=== PATIENT | male | born 1945 | race Caucasian/White ===

== ENCOUNTER → 2017-08-31 | Outpatient (CLI) | payer OTHER | END | disposition home or self-care (01) | LOC: US 10:48 | DX: N18.9 Chronic kidney disease, unspecified (principal); N26.1 Atrophy of kidney (terminal); N28.1 Cyst of kidney, acquired; N40.0 Benign prostatic hyperplasia without lower urinary tract symptoms; N32.89 Other specified disorders of bladder | CPT/HCPCS: 76770 ==

== ENCOUNTER → 2017-09-27 | Outpatient (CLI) | payer OTHER | END | disposition home or self-care (01) | LOC: ECHO 08:54 | DX: I49.5 Sick sinus syndrome (principal); I49.9 Cardiac arrhythmia, unspecified; R94.31 Abnormal electrocardiogram [ECG] [EKG] | CPT/HCPCS: 93306 ==

== ENCOUNTER → 2018-04-08 | Outpatient (CLI) | payer OTHER ==
[2016-07-21 19:54] VITALS: BP 145/67
[~2018-04-08] MED LIST: ATOR40TA59 PO; CYAN100072 PO; LISI-334 PO; OMEG100020 PO; PANT40TA5 PO; REGADENOSON 0.4 MG/5 ML DISP.SYRIN. IV ONE; VIT1CAPS12 PO; VIT1TABL71 PO
--- NOTE | 2018-04-08 16:02 | RAD ---
MR#: [id number] Date of Study: 04/08/2018 Ordering Physician: LINA FRITZ, Referring Physician: CHRISTINA HICKMAN Tech: Tracey Walton, RT (R) (N) APPROVED REPORT Test Type: Pharmacological Stress Nurse/Tech: Cait Hobson RN Test Indications: PreOp Clearance Cardiac History: Hypertension,PPM,former smoker Medications: See Electronic Medical Record Medical History: See Electronic Medical Record Resting ECG: Paced Rhythm Resting Heart Rate: 62 bpm Resting Blood Pressure: 174/68mmHg Pretest Chest Pain: No chest pain Nurse/Tech Notes S1,S2 and lungs are slightly diminished in the bases. Consent: The procedure was explained to the patient in lay terms. Informed consent was witnessed. Iván eout was entered into [employer]. History and Stress Test performed by EMILY Richards Pharm. Details Pharmacologic stress testing was performed using 0.4mg per 5ml of regadenoson given intravenously ove r 7-10 seconds. Stress Symptoms No chest pain or symptoms. POST EXERCISE Reason for Termination: Infusion complete Target HR: No Max HR: 99 bpm Max Blood Pressure: 162/58mmHg Blood Pressure response to exercise: Normal blood pressure response during stress. Heart Rate response to exercise: WNL Chest Pain: No. Arrhythmia: Yes. PVC's. ST Change: No. INTERPRETATION Stress EKG Conclusion: Baseline EKG showed demand atrial paced rhythm. No ischemic changes at peak s tress. No arrhythmias. Imaging Protocol IMAGE PROTOCOL: Rest Tc-99m/stress Tc-99m 1 day Rest: Stress: Viability: Radiopharm.Tc99m WxypxrgikCr32j Sestamibi [id number] 35mCi Duration 13min. 13min. Img Date 04/08/2018 04/08/2018 Inj-Img Sudj98xuh. 60min. Rest Admin Site:IV - Right AntecubitalAdministrator:EMILY Richards Stress Admin Site: IV - Right AntecubitalAdministrator: KARLA Romano, ARRT (R)(N) STRESS DATA End Diast. Vol.91.0mlLVEDV index BSA57.0ml End Syst. Vol.34.0mlLVESV index BSA21.0ml Myocardial Zvkg594.0gEject. Pocmhkxc99.0% Stress Scores Regional WT1.00Summed WT2.00 Regional WM0.00Summed WM1.00 Study quality was good. Left Ventricular size was Normal at Rest and Stress. Lung uptake was Normal. Left Ventricular ejection fraction is 63%. The rest and stress images show normal perfusion, normal contraction and thickening. LV Perf. Quant 17 Seg. SSS2.00 17 Seg. SRS6.00 17 Seg. SDS0.00 Stress Defect Extent (% LAD)1.30Rest Defect Extent (% LAD)16.90Rev. Defect Extent (% LAD)0.00 Stress Defect Extent (% LCX) 0.00Rest Defect Extent (% LCX)0.00Rev. Defect Extent (% LCX)0.00 Stress Defect Extent (% RCA)0.00Rest Defect Extent (% RCA)16.70Rev. Defect Extent (% RCA)0.00 Stress Defect Extent (% JONNY)0.40Rest Defect Extent (% JONNY)13.30Rev. Defect Extent (% JONNY)0.00 Conclusion 1. Regadenoson cardioisotope stress test did not show any evidence of ischemia or infarct. 2. Normal left ventricular systolic function with ejection fraction calculated at 63%. 3. Low risk for cardiac events. Signed by : Lina Fritz, Electronically Approved : 04/08/2018 16:01:57
== END | disposition home or self-care (01) ==
LOC: NM 07:56
PROVIDERS: ATTEND Internal Medicine Cardiovascular Disease
DX: Z01.818 Encounter for other preprocedural examination (principal); I12.9 Hypertensive chronic kidney disease with stage 1 through stage 4 chronic kidney disease, or unspecified chronic kidney disease; N18.3 Chronic kidney disease, stage 3 (moderate); E78.5 Hyperlipidemia, unspecified; E78.00 Pure hypercholesterolemia, unspecified; Z87.891 Personal history of nicotine dependence
CPT/HCPCS: 78452; 93017; 96374; 96375; 96376; A9500; J2785

== ENCOUNTER 2018-12-27 09:23 | Inpatient (IN) | payer OTHER ==
[~2018-12-27] VITALS: Ht 160 cm; Wt 57.4 kg
[~2018-12-27 09:23] MED LIST changes: +CYAN500T2 PO; +HYDR-3164 PO; +LISI-130 PO; -REGADENOSON 0.4 MG/5 ML DISP.SYRIN. IV ONE
[2018-12-27 09:59] LABS: BASO % 1 % (0-3); EOS # 0.4 x10^3/uL (0.0-0.7); EOS % 7 % (0-3); HEMATOCRIT 30.1 % (39.0-53.0); LYMPH # 1.4 x10^3/uL (1.0-4.8); LYMPH % 23 % (24-48); MEAN CORPUSCULAR HEMOGLOBIN 33 pg (25-35); MEAN CORPUSCULAR HGB CONC 33 g/dL (31-37); MEAN CORPUSCULAR VOLUME 99 fL (79-100); MONO # 0.7 x10^3/uL (0.0-1.1); MONO % 11 % (0-9); NEUT # 3.7 x10^3uL (1.8-7.7); NEUT % 60 % (31-73); PLATELET COUNT 215 x10^3/uL (140-400); RED BLOOD COUNT 3.04 x10^6/uL (4.30-5.70); RED CELL DISTRIBUTION WIDTH 13.3 % (11.5-14.5); WHITE BLOOD COUNT 6.1 x10^3/uL (4.0-11.0)
[2018-12-27] MEDS ORDERED: ASPIRIN CHEWABLE 81 MG TABLET. PO ONE (10:00)
[2018-12-27 10:06] LABS: PROTHROMBIN TIME PATIENT 13.1 SEC (11.7-14.0)
[2018-12-27 10:10] LABS: CALCIUM 8.7 mg/dL (8.5-10.1); CREATININE 3.3 mg/dL (0.7-1.3); GFR 18.4; POTASSIUM 4.3 mmol/L (3.5-5.1)
[2018-12-27 10:17] LABS: ALBUMIN 2.9 g/dL (3.4-5.0); MAGNESIUM 1.6 mg/dL (1.8-2.4); TOTAL BILIRUBIN 0.4 mg/dL (0.2-1.0); TOTAL PROTEIN 5.9 g/dL (6.4-8.2)
--- NOTE | 2018-12-27 10:17 | RAD ---
Portable chest, 12/27/2018: HISTORY: Chest pain Comparison is made to a study from 06/21/2016. A left-sided transvenous pacemaker remains in place with 2 leads extending into the right heart. The heart size and pulmonary vascularity are normal. There is pleural thickening over the apices compatible scarring. No acute infiltrate is seen. There is no evidence of pleural fluid. IMPRESSION: No acute cardiopulmonary abnormality is detected. Electronically signed by: Terry Simmons MD (12/27/2018 10:14 AM) [facility]
--- NOTE | 2018-12-27 10:25 | EKG ---
[facility] [address] [place] [address] Test Date: 2018-12-27 Test Time: 09:43:04 Pat Name: CAITLIN SAUL Department: Room: Gender: Despatching And Receiving Clerk: : 1945 Requested By: IVY MCGUIRE Order Number: [id number] Reading MD: Orlando Aguirre Measurements Intervals [place] Rate: 60 P: 61 [place]: 212 QRS: 38 QRSD: 104 T: 36 QT: 414 QTc: 418 Interpretive Statements ATRIAL PACED RHYTHM Electronically Signed On 01-17-2019 12:27:41 CDT by Orlando Aguirre
[2018-12-27] MEDS ORDERED: MAGNESIUM OXIDE 400 MG TABLET PO ONE (11:45)
--- NOTE | 2018-12-27 12:00 | PHYS DOC ---
Past Medical History Past Medical History: Anemia, Arrhythmia, High Cholesterol, Hypertension, Renal Disease, Other Additional Past Medical Histor: WET MAC D Past Surgical History: Pacemaker, Other Additional Past Surgical Histo: HERNIA Alcohol Use: Occasionally Drug Use: None Adult General Chief Complaint Chief Complaint: CHEST PAIN HPI HPI Patient is a 73 year old male who presents with complaining of episodes of chest pain. Patient complaining of 3 episodes of exertional chest pain that started yesterday afternoon and last for about 1- 2 minutes as a chest tightness is substernal area with radiation to bilateral shoulder and associated with shortness of breath without nausea, dizziness, palpitation, focal neuro deficit. Patient rated the pain as a moderate pain and states he called his primary care physician today and was recommended to come to emergency room for evaluation. Patient has history of hypertension and dyslipidemia without history of coronary artery disease. He was chest pain-free today. Review of Systems Review of Systems Constitutional: Denies fever or chills [] Eyes: Denies change in visual acuity, redness, or eye pain [] HENT: Denies nasal congestion or sore throat [] Respiratory: Denies cough, reports shortness of breath [] Cardiovascular: No additional information not addressed in HPI [] GI: Denies abdominal pain, nausea, vomiting, bloody stools or diarrhea [] : Denies dysuria or hematuria [] Musculoskeletal: Denies back pain or joint pain [] Integument: Denies rash or skin lesions [] Neurologic: Denies headache, focal weakness or sensory changes [] Endocrine: Denies polyuria or polydipsia [] All other systems were reviewed and found to be within normal limits, except as documented in this note. Current Medications Current Medications Current Medications Medications (Trade) Dose Ordered Sig/Lm Start Time Stop Time Status Last Admin Dose Admin Aspirin (Children'S Aspirin) 324 mg 1X ONCE 12/27/18 10:00 12/27/18 10:01 DC 12/27/18 10:15 324 MG Magnesium Oxide (Magnesium Oxide) 400 mg 1X ONCE 12/27/18 11:45 12/27/18 11:46 DC 12/27/18 11:55 400 MG Allergies Allergies Allergies Coded Allergies Type Severity Reaction Last Updated Verified Influenza Virus Vaccines Allergy Intermediate GUILLAIN BARRE SYMPTOMS 04/16/18 Yes diphenhydramine Adverse Reaction Mild CHANGE IN PERSONALITY 04/16/18 Yes Physical Exam Physical Exam Constitutional: Well developed, well nourished, no acute distress, non-toxic appearance. [] HENT: Normocephalic, atraumatic. Eyes: PERRLA, EOMI, conjunctiva normal, no discharge. [] Neck: Normal range of motion, no tenderness, supple, no stridor. [] Cardiovascular:Heart rate regular rhythm, no murmur [] Lungs & Thorax: Bilateral breath sounds clear to auscultation [] Abdomen: Bowel sounds normal, soft, no tenderness, no masses, no pulsatile masses. [] Skin: Warm, dry, no erythema, no rash. [] Back: No tenderness, no CVA tenderness. [] Extremities: No tenderness, no cyanosis, no clubbing, ROM intact, no edema. [] Neurologic: Alert and oriented X 3, normal motor function, normal sensory function, no focal deficits noted. [] Psychologic: Affect normal, judgement normal, mood normal. [] Current Patient Data Vital Signs Vital Signs Date Time Temp Pulse Resp B/P (MAP) Pulse Ox O2 Delivery O2 Flow Rate FiO2 12/27/18 11:30 60 153/69 (97) 99 Nasal Cannula 12/27/18 10:07 97.8 18 97.8 Lab Values Laboratory Tests Test 12/27/18 09:48 White Blood Count 6.1 x10^3/uL (4.0-11.0) Red Blood Count 3.04 x10^6/uL (4.30-5.70) L Hemoglobin 10.0 g/dL (13.0-17.5) L Hematocrit 30.1 % (39.0-53.0) L Mean Corpuscular Volume 99 fL (79-100) Mean Corpuscular Hemoglobin 33 pg (25-35) Mean Corpuscular Hemoglobin Concent 33 g/dL (31-37) Red Cell Distribution Width 13.3 % (11.5-14.5) Platelet Count 215 x10^3/uL (140-400) Neutrophils (%) (Auto) 60 % (31-73) Lymphocytes (%) (Auto) 23 % (24-48) L Monocytes (%) (Auto) 11 % (0-9) H Eosinophils (%) (Auto) 7 % (0-3) H Basophils (%) (Auto) 1 % (0-3) Neutrophils # (Auto) 3.7 x10^3uL (1.8-7.7) Lymphocytes # (Auto) 1.4 x10^3/uL (1.0-4.8) Monocytes # (Auto) 0.7 x10^3/uL (0.0-1.1) Eosinophils # (Auto) 0.4 x10^3/uL (0.0-0.7) Basophils # (Auto) 0.0 x10^3/uL (0.0-0.2) Prothrombin Time 13.1 SEC (11.7-14.0) Prothrombin Time INR 1.0 (0.8-1.1) Sodium Level 146 mmol/L (136-145) H Potassium Level 4.3 mmol/L (3.5-5.1) Chloride Level 112 mmol/L (98-107) H Carbon Dioxide Level 21 mmol/L (21-32) Anion Gap 13 (6-14) Blood Urea Nitrogen 54 mg/dL (8-26) H Creatinine 3.3 mg/dL (0.7-1.3) H Estimated GFR (Cockcroft-Gault) 18.4 BUN/Creatinine Ratio 16 (6-20) Glucose Level 109 mg/dL (70-99) H Calcium Level 8.7 mg/dL (8.5-10.1) Magnesium Level 1.6 mg/dL (1.8-2.4) L Total Bilirubin 0.4 mg/dL (0.2-1.0) Aspartate Amino Transferase (AST) 26 U/L (15-37) Alanine Aminotransferase (ALT) 24 U/L (16-63) Alkaline Phosphatase 80 U/L (46-116) Creatine Kinase 131 U/L (39-308) Creatine Kinase MB (Mass) 1.6 ng/mL (0.0-3.6) Creatine Kinase MB Relative Index 1.2 % (0-4) Troponin I Quantitative < 0.017 ng/mL (0.000-0.055) LL-Kmw-G-Type Natriuretic Peptide 902 pg/mL (0-124) H Total Protein 5.9 g/dL (6.4-8.2) L Albumin 2.9 g/dL (3.4-5.0) L Albumin/Globulin Ratio 1.0 (1.0-1.7) Triglycerides Level 124 mg/dL (0-150) Cholesterol Level 152 mg/dL (0-200) LDL Cholesterol, Calculated 94 mg/dL (0-100) VLDL Cholesterol, Calculated 25 mg/dL (0-40) Non-HDL Cholesterol Calculated 119 mg/dL (0-129) HDL Cholesterol 33 mg/dL (40-60) L Cholesterol/HDL Ratio 4.6 Lipase 232 U/L (73-393) Thyroid Stimulating Hormone (TSH) 1.211 uIU/mL (0.358-3.74) Laboratory Tests 12/27/18 09:48 Laboratory Tests 12/27/18 09:48 EKG EKG EKG interpreted by me. EKG at 0943 showed normal sinus rhythm at rate of 60, poor R-wave progress in anteroseptal disease, no acute ST and T-wave abnormalities. Radiology/Procedures Radiology/Procedures [facility] [address] [place] [address] IMAGING REPORT Signed PATIENT: CAITLIN SAUL ACCOUNT: [id number] : 1945 LOCATION: ER AGE: 73 SEX: M EXAM STATUS: REG ER ORD. PHYSICIAN: IVY MCGUIRE MD REASON: chest pain PROCEDURE: PORTABLE CHEST 1V Portable chest, 12/27/2018: HISTORY: Chest pain Comparison is made to a study from 06/21/2016. A left-sided transvenous pacemaker remains in place with 2 leads extending into the right heart. The heart size and pulmonary vascularity are normal. There is pleural thickening over the apices compatible scarring. No acute infiltrate is seen. There is no evidence of pleural fluid. IMPRESSION: No acute cardiopulmonary abnormality is detected. Electronically signed by: Terry Simmons MD (12/27/2018 10:14 AM) [facility] DICTATED and SIGNED BY: TERRY SIMMONS MD DATE: 12/27/18 1014 Course & Med Decision Making Course & Med Decision Making Pertinent Labs and Imaging studies reviewed. (See chart for details) Evaluation of patient in ER showed 73-year-old female patient with complaining of episodes of exertional chest pain without having chest pain at arrival to ER. Patient had unremarkable labs and EKG but because of cardiac risk factors and exertional chest pain plan to admit for more evaluation.patient has chronic renal failure and elevation of sodium and chloride and ringer at rate of 75 ML/H was ordered. Patient requiring admission for further evaluation and treatment. Discussed with Dr. Mendiola who is in agreement with admission. Discussed find ings and plan with patient and family, who acknowledge understanding and agreement. Dragon Disclaimer Dragon Disclaimer This electronic medical record was generated, in whole or in part, using a voice recognition dictation system. Departure Departure Impression: Primary Impression: Acute chest pain Additional Impressions: Hypernatremia Chronic renal insufficiency Hyperchloremia Disposition: ADMITTED INPATIENT (at 1158) Admitting Physician: Aaron Sam (accepted admission at 1156) Condition: IMPROVED Referrals: VIVIANE CURTIS MD (PCP) Problem Qualifiers Additional Impressions: Chronic renal insufficiency Chronic kidney disease stage: unspecified stage Qualified Codes: N18.9 - Chronic kidney disease, unspecified IVY MCGUIRE MD December 27, 2018 12:00
--- NOTE | 2018-12-27 12:17 | PDOC1 ---
History and Physical Date of Admission Date of Admission DATE: 12/27/18 TIME: 12:17 Identification/Chief Complaint Chief Complaint SEEN IN ER WITH chest tightness with shoulder discomfort and mildly diaphoretic but no nausea. No SOA. No palpitations and actually his fitbit shows HR in the 60s. This lasted about 1-2 minutes. He sat down and got better. He started bowling again for round 2 YESTERDAY and started having symptoms again 10 minutes later. STATES he feels like he felt before he needed a pacemaker There is no GERMAIN, no palpitations.but reports poor exercise tolerance Past Medical History Past Medical History Past Medical History Past Medical History Past Medical History: Anemia, Arrhythmia, High Cholesterol, Hypertension, Renal Disease, Other Additional Past Medical Histor: WET MAC D Past Surgical History: Pacemaker, Other Additional Past Surgical Histo: HERNIA Alcohol Use: Occasionally Drug Use: None FAMILY HX htn Current Problem List Problem List Problems Medical Problems: (1) Acute chest pain Status: Acute (2) Hypernatremia Status: Acute Current Medications Current Medications Current Medications Aspirin (Children'S Aspirin) 324 mg 1X ONCE PO Last administered on 12/27/18at 10:15; Start 12/27/18 at 10:00; Stop 12/27/18 at 10:01; Status DC Magnesium Oxide (Magnesium Oxide) 400 mg 1X ONCE PO Last administered on 12/27/18at 11:55; Start 12/27/18 at 11:45; Stop 12/27/18 at 11:46; Status DC Ringer's Solution 1,000 ml @ 75 mls/hr 1X ONCE IV ; Start 12/27/18 at 12:30; Stop 12/28/18 at 01:49 Active Scripts Active Reported [place] 5-325 Tablet (Acetaminophen/Hydrocodone Bitart) 1 Each Tablet 1-2 Tab PO Q4-6HRS LAST DOSE GIVEN: Vitamin B-12 (Cyanocobalamin (Vitamin B-12)) 500 Mcg Tablet 500 Mcg PO Lisinopril 40 Mg Tablet 1.5 Tab PO DAILY Fish Oil Conc 1,000 mg Softgel (Brilliant-3/Dha/Epa/Fish Oil) 1,000 Mg Capsule 1,000 Mg PO DAILY Atorvastatin Calcium 40 Mg Tablet 40 Mg PO QHS Pantoprazole Sodium 40 Mg Tablet.dr 40 Mg PO DAILY Allergies Allergies: Coded Allergies: Influenza Virus Vaccines (Verified Allergy, Intermediate, GUILLAIN BARRE SYMPTOMS, 04/16/18) diphenhydramine (Verified Adverse Reaction, Mild, CHANGE IN PERSONALITY, 04/16/18) CHANGE IN PERSONALITY ROS Review of System Review of Systems Review of Systems Constitutional: Denies fever or chills [] Eyes: Denies change in visual acuity, redness, or eye pain [] HENT: Denies nasal congestion or sore throat [] Respiratory: Denies cough or shortness of breath [] Cardiovascular: No additional information not addressed in HPI [] GI: Denies abdominal pain, nausea, vomiting, bloody stools or diarrhea [] : Denies dysuria or hematuria [] Musculoskeletal: Denies back pain or joint pain [] Integument: Denies rash or skin lesions [] Neurologic: Denies headache, focal weakness or sensory changes [] Endocrine: Denies polyuria or polydipsia [] 14 pt systems were reviewed and found to be within normal limits, except as documented Physical Exam Physical Exam Physical Exam Physical Exam Constitutional: Well developed, well nourished, no acute distress, non-toxic appearance. [] HENT: Normocephalic, atraumatic, bilateral external ears normal, oropharynx moist, no oral exudates, nose normal. [] Eyes: PERRLA, EOMI, conjunctiva normal, no discharge. [] Neck: Normal range of motion, no tenderness, supple, no stridor. [] Cardiovascular:Heart rate regular rhythm, no murmur [] Lungs & Thorax: Bilateral breath sounds clear to auscultation [] Abdomen: Bowel sounds normal, soft, no tenderness, no masses, no pulsatile masses. [] Skin: Warm, dry, no erythema, no rash. [] Back: No tenderness, no CVA tenderness. [] Extremities: No tenderness, no cyanosis, no clubbing, ROM intact, no edema. [] Neurologic: Alert and oriented X 3, normal motor function, normal sensory function, no focal deficits noted. [] Psychologic: Affect normal, judgement normal, mood normal. [] General: Oriented X3, Cooperative HEENT: Atraumatic Lungs: Clear to auscultation Abdomen: Normal bowel sounds, Soft Rectal Exam: not examined Extremities: No cyanosis, No edema Skin: No significant lesion Neuro: Cranial nerves 3-12 NL Psych/Mental Status: Mental status NL Vitals Vitals Vital Signs Date Time Temp Pulse Resp B/P (MAP) Pulse Ox O2 Delivery O2 Flow Rate FiO2 12/27/18 10:07 97.8 60 18 173/80 (111) 100 Room Air 97.8 Labs Labs Laboratory Tests Test 12/27/18 09:48 White Blood Count 6.1 x10^3/uL (4.0-11.0) Red Blood Count 3.04 x10^6/uL (4.30-5.70) Hemoglobin 10.0 g/dL (13.0-17.5) Hematocrit 30.1 % (39.0-53.0) Mean Corpuscular Volume 99 fL (79-100) Mean Corpuscular Hemoglobin 33 pg (25-35) Mean Corpuscular Hemoglobin Concent 33 g/dL (31-37) Red Cell Distribution Width 13.3 % (11.5-14.5) Platelet Count 215 x10^3/uL (140-400) Neutrophils (%) (Auto) 60 % (31-73) Lymphocytes (%) (Auto) 23 % (24-48) Monocytes (%) (Auto) 11 % (0-9) Eosinophils (%) (Auto) 7 % (0-3) Basophils (%) (Auto) 1 % (0-3) Neutrophils # (Auto) 3.7 x10^3uL (1.8-7.7) Lymphocytes # (Auto) 1.4 x10^3/uL (1.0-4.8) Monocytes # (Auto) 0.7 x10^3/uL (0.0-1.1) Eosinophils # (Auto) 0.4 x10^3/uL (0.0-0.7) Basophils # (Auto) 0.0 x10^3/uL (0.0-0.2) Prothrombin Time 13.1 SEC (11.7-14.0) Prothromb Time International Ratio 1.0 (0.8-1.1) Sodium Level 146 mmol/L (136-145) Potassium Level 4.3 mmol/L (3.5-5.1) Chloride Level 112 mmol/L (98-107) Carbon Dioxide Level 21 mmol/L (21-32) Anion Gap 13 (6-14) Blood Urea Nitrogen 54 mg/dL (8-26) Creatinine 3.3 mg/dL (0.7-1.3) Estimated GFR (Cockcroft-Gault) 18.4 BUN/Creatinine Ratio 16 (6-20) Glucose Level 109 mg/dL (70-99) Calcium Level 8.7 mg/dL (8.5-10.1) Magnesium Level 1.6 mg/dL (1.8-2.4) Total Bilirubin 0.4 mg/dL (0.2-1.0) Aspartate Amino Transf (AST/SGOT) 26 U/L (15-37) Alanine Aminotransferase (ALT/SGPT) 24 U/L (16-63) Alkaline Phosphatase 80 U/L (46-116) Creatine Kinase 131 U/L (39-308) Creatine Kinase MB (Mass) 1.6 ng/mL (0.0-3.6) Creatine Kinase MB Relative Index 1.2 % (0-4) Troponin I Quantitative < 0.017 ng/mL (0.000-0.055) ZB-Wpk-J-Type Natriuretic Peptide 902 pg/mL (0-124) Total Protein 5.9 g/dL (6.4-8.2) Albumin 2.9 g/dL (3.4-5.0) Albumin/Globulin Ratio 1.0 (1.0-1.7) Lipase 232 U/L (73-393) Laboratory Tests Test 12/27/18 09:48 White Blood Count 6.1 x10^3/uL (4.0-11.0) Red Blood Count 3.04 x10^6/uL (4.30-5.70) Hemoglobin 10.0 g/dL (13.0-17.5) Hematocrit 30.1 % (39.0-53.0) Mean Corpuscular Volume 99 fL (79-100) Mean Corpuscular Hemoglobin 33 pg (25-35) Mean Corpuscular Hemoglobin Concent 33 g/dL (31-37) Red Cell Distribution Width 13.3 % (11.5-14.5) Platelet Count 215 x10^3/uL (140-400) Neutrophils (%) (Auto) 60 % (31-73) Lymphocytes (%) (Auto) 23 % (24-48) Monocytes (%) (Auto) 11 % (0-9) Eosinophils (%) (Auto) 7 % (0-3) Basophils (%) (Auto) 1 % (0-3) Neutrophils # (Auto) 3.7 x10^3uL (1.8-7.7) Lymphocytes # (Auto) 1.4 x10^3/uL (1.0-4.8) Monocytes # (Auto) 0.7 x10^3/uL (0.0-1.1) Eosinophils # (Auto) 0.4 x10^3/uL (0.0-0.7) Basophils # (Auto) 0.0 x10^3/uL (0.0-0.2) Prothrombin Time 13.1 SEC (11.7-14.0) Prothromb Time International Ratio 1.0 (0.8-1.1) Sodium Level 146 mmol/L (136-145) Potassium Level 4.3 mmol/L (3.5-5.1) Chloride Level 112 mmol/L (98-107) Carbon Dioxide Level 21 mmol/L (21-32) Anion Gap 13 (6-14) Blood Urea Nitrogen 54 mg/dL (8-26) Creatinine 3.3 mg/dL (0.7-1.3) Estimated GFR (Cockcroft-Gault) 18.4 BUN/Creatinine Ratio 16 (6-20) Glucose Level 109 mg/dL (70-99) Calcium Level 8.7 mg/dL (8.5-10.1) Magnesium Level 1.6 mg/dL (1.8-2.4) Total Bilirubin 0.4 mg/dL (0.2-1.0) Aspartate Amino Transf (AST/SGOT) 26 U/L (15-37) Alanine Aminotransferase (ALT/SGPT) 24 U/L (16-63) Alkaline Phosphatase 80 U/L (46-116) Creatine Kinase 131 U/L (39-308) Creatine Kinase MB (Mass) 1.6 ng/mL (0.0-3.6) Creatine Kinase MB Relative Index 1.2 % (0-4) Troponin I Quantitative < 0.017 ng/mL (0.000-0.055) KW-Wan-P-Type Natriuretic Peptide 902 pg/mL (0-124) Total Protein 5.9 g/dL (6.4-8.2) Albumin 2.9 g/dL (3.4-5.0) Albumin/Globulin Ratio 1.0 (1.0-1.7) Lipase 232 U/L (73-393) VTE Prophylaxis Ordered VTE Prophylaxis Devices: Yes VTE Pharmacological Prophylaxi: Yes Assessment/Plan Assessment/Plan impression 1. chest discomfort 2. exercise intolerance, may be angina equivalence 3. hyperlipidemia 4. hypertension 5, ckd 6. renal failure plan admit serial troponin i cvc bed home meds TTE, TSH, carotid dopplers. hold home lisinopril, IV hydrate x1 L Interrogate pacemaker Orthostatic bp ASA, Mg replaced. cardiology consult dvt prophylaxis nephrology consult 59 min pt exam, chart review, > 50% of time spent with exam, chart review, pt care coordination Past Medical History Past Medical History: Anemia, Arrhythmia, High Cholesterol, Hypertension, Renal Disease, Other Additional Past Medical Histor: WET MAC D Past Surgical History: Pacemaker, Other Additional Past Surgical Histo: HERNIA Alcohol Use: Occasionally Drug Use: None GIOVANA LECHUGA MD December 27, 2018 12:17
[2018-12-27] MEDS ORDERED: IV RINGERS,LACTATED 1000ML 1,000 ML IV ONE (12:30)
--- NOTE | 2018-12-27 12:45 | PDOC2 ---
TAMIA BILL CO FOUNDER 12/27/18 1245: CARDIAC CONSULT DATE OF CONSULT Date of Consult DATE: 12/27/18 TIME: 12:34 REASON FOR CONSULT Reason for Consult: Chest pain REFERRING PHYSICIAN Referring Physician: jese SOURCE Source: Chart review, Patient HISTORY OF PRESENT ILLNESS HISTORY OF PRESENT ILLNESS This is a pleasant 73 yo male admitted for complains of chest pain and dizziness. Reports that he does gardening and was noticed by his that his endurance has decreased which is quite opposite than the endurance he displayed while he was bowling for an hour without any problem when suddenly he felt flushed, had midchest tightness with shoulder discomfort and mildly diaphoretic but no nausea. No SOA. No palpitations and actually his fitbit shows HR in the 60s. This lasted about 1-2 minutes. He sat down and got better. He started bowling again for round 2 and started having symptoms again 10 minutes later. This did not recur again until he went home but he tried to induced he said. He stood up right away and climb the stairs. There is no GERMAIN, no palpitations. Verbalized adequate hydration and medication compliance. He has renal insufficiency stage 4 but no prior hx of CAD, VTE. No stroke symptoms. PAST MEDICAL HISTORY Cardiovascular: HTN, Hyperlipidemia Heme/Onc: Anemia NOS, Other (DVT to arm?) Musculoskeletal: Osteoarthritis Renal/: Chronic renal insuff (4), Benign prostatic enlarg., Other (alports syndrome) PAST SURGICAL HISTORY Past Surgical History: Pacemaker, Cataract Removal, Hernia Repair (right inguinal), Tonsillectomy, Other (rectal polypectomy) FAMILY HISTORY Family History: Heart Disease SOCIAL HISTORY Smoke: Quit ALCOHOL: occassional Drugs: None Lives: with Family CURRENT MEDICATIONS CURRENT MEDICATIONS Current Medications Medications (Trade) Dose Ordered Sig/Lm Route PRN Reason Start Time Stop Time Status Last Admin Dose Admin Aspirin (Children'S Aspirin) 324 mg 1X ONCE PO 12/27/18 10:00 12/27/18 10:01 DC 12/27/18 10:15 Magnesium Oxide (Magnesium Oxide) 400 mg 1X ONCE PO 12/27/18 11:45 12/27/18 11:46 DC 12/27/18 11:55 ALLERGIES ALLERGIES: Coded Allergies: Influenza Virus Vaccines (Verified Allergy, Intermediate, GUILLAIN BARRE SYMPTOMS, 04/16/18) diphenhydramine (Verified Adverse Reaction, Mild, CHANGE IN PERSONALITY, 04/16/18) CHANGE IN PERSONALITY ROS Review of System 14 point ROS evaluated with pertinent positives noted per HPI PHYSICAL EXAM General: Alert, Oriented X3, Cooperative, No acute distress HEENT: Atraumatic, Mucous membr. moist/pink Lungs: Clear to auscultation, Normal air movement Heart: Regular rate (atrial paced), Normal S1, Normal S2, No murmurs Abdomen: Soft, No tenderness Extremities: No cyanosis, Other (trace LE ) Skin: No breakdown, No significant lesion Neuro: Normal speech, Sensation intact Psych/Mental Status: Mental status NL, Mood NL MUSCULOSKELETAL: Osteoarthritic changes both hands VITALS VITALS Vital Signs Date Time Temp Pulse Resp B/P (MAP) Pulse Ox O2 Delivery O2 Flow Rate FiO2 12/27/18 10:07 97.8 60 18 173/80 (111) 100 Room Air 97.8 LABS Lab: Laboratory Tests Test 12/27/18 09:48 White Blood Count 6.1 x10^3/uL (4.0-11.0) Red Blood Count 3.04 x10^6/uL (4.30-5.70) Hemoglobin 10.0 g/dL (13.0-17.5) Hematocrit 30.1 % (39.0-53.0) Mean Corpuscular Volume 99 fL (79-100) Mean Corpuscular Hemoglobin 33 pg (25-35) Mean Corpuscular Hemoglobin Concent 33 g/dL (31-37) Red Cell Distribution Width 13.3 % (11.5-14.5) Platelet Count 215 x10^3/uL (140-400) Neutrophils (%) (Auto) 60 % (31-73) Lymphocytes (%) (Auto) 23 % (24-48) Monocytes (%) (Auto) 11 % (0-9) Eosinophils (%) (Auto) 7 % (0-3) Basophils (%) (Auto) 1 % (0-3) Neutrophils # (Auto) 3.7 x10^3uL (1.8-7.7) Lymphocytes # (Auto) 1.4 x10^3/uL (1.0-4.8) Monocytes # (Auto) 0.7 x10^3/uL (0.0-1.1) Eosinophils # (Auto) 0.4 x10^3/uL (0.0-0.7) Basophils # (Auto) 0.0 x10^3/uL (0.0-0.2) Prothrombin Time 13.1 SEC (11.7-14.0) Prothromb Time International Ratio 1.0 (0.8-1.1) Sodium Level 146 mmol/L (136-145) Potassium Level 4.3 mmol/L (3.5-5.1) Chloride Level 112 mmol/L (98-107) Carbon Dioxide Level 21 mmol/L (21-32) Anion Gap 13 (6-14) Blood Urea Nitrogen 54 mg/dL (8-26) Creatinine 3.3 mg/dL (0.7-1.3) Estimated GFR (Cockcroft-Gault) 18.4 BUN/Creatinine Ratio 16 (6-20) Glucose Level 109 mg/dL (70-99) Calcium Level 8.7 mg/dL (8.5-10.1) Magnesium Level 1.6 mg/dL (1.8-2.4) Total Bilirubin 0.4 mg/dL (0.2-1.0) Aspartate Amino Transf (AST/SGOT) 26 U/L (15-37) Alanine Aminotransferase (ALT/SGPT) 24 U/L (16-63) Alkaline Phosphatase 80 U/L (46-116) Creatine Kinase 131 U/L (39-308) Creatine Kinase MB (Mass) 1.6 ng/mL (0.0-3.6) Creatine Kinase MB Relative Index 1.2 % (0-4) Troponin I Quantitative < 0.017 ng/mL (0.000-0.055) CT-Aqc-N-Type Natriuretic Peptide 902 pg/mL (0-124) Total Protein 5.9 g/dL (6.4-8.2) Albumin 2.9 g/dL (3.4-5.0) Albumin/Globulin Ratio 1.0 (1.0-1.7) Lipase 232 U/L (73-393) ECHOCARDIOGRAM ECHOCARDIOGRAM <Conclusion> The left ventricular systolic function is normal. The Ejection Fraction is 55-60%. There is normal LV segmental wall motion. Trace mitral regurgitation. Trace tricuspid regurgitation. There is no evidence of significant pericardial effusion. DATE: 09/27/17 1129 STRESS TEST STRESS TEST Conclusion 1. Regadenoson cardioisotope stress test did not show any evidence of ischemia or infarct. 2. Normal left ventricular systolic function with ejection fraction calculated at 63%. 3. Low risk for cardiac events. DATE: 04/08/18 1601 ASSESSMENT/PLAN ASSESSMENT/PLAN 1. CP: mixed features initial trop nml, EKG atrial paced otherwise no significant changes. Possibly related to arrhythmia 2. Presyncope: arrhythmia vs vasovagal 3. MALLORY on CKD4 with hx of Alports syndrome 4. PPM in situ with hx of SSS: [place] 4. HTN; controlled 5. anemia of chronic disease: Hgb 10 Recommendations Limited TTE, TSH, lipids, trend troponin. carotid doppler. hold home lisinopril, IV hydrate x1 L Interrogate device Orthostatic readings. ASA, Mg replaced. will consider for outpt stress test if findings are inconclusive. LINA FRITZ MD 12/27/18 5955: CARDIAC CONSULT ASSESSMENT/PLAN ASSESSMENT/PLAN Patient seen and examined. Agree with ADVISOR CONSULTANT's assessment and plan. Chest pain with atypical features Myocardial infarction has been ruled out Limited 2-D echo showed normal LV function without any wall motion abnormalities Pacemaker interrogation showed normal function We will consider ischemic evaluation as an outpatient Thank you for your consultation TAMIA BILL APRN December 27, 2018 12:45 LINA FRITZ MD December 27, 2018 17:59
[2018-12-27 12:50] VITALS: BP 168/58
[2018-12-27 13:15] LABS: CHOLESTEROL/HDL RATIO 4.6
[2018-12-27] MEDS ORDERED: CARV12.511 PO (14:48)
[2018-12-27] MEDS ORDERED: CALC-77 PO (14:48)
[2018-12-27] MEDS ORDERED: FERR325T14 PO (14:48)
[2018-12-27] MEDS ORDERED: CYAN-9 PO (14:50)
[2018-12-27] MEDS ORDERED: PANT20TA2 PO (14:52)
[2018-12-27 15:00] VITALS: BP 166/62
[2018-12-27] MEDS ORDERED: IV 1/2 NORMAL SALINE 1,000 ML IV ONE (16:00)
--- NOTE | 2018-12-27 16:17 | RAD ---
CT HEAD INDICATION: Dizziness, headache COMPARISON: None Available. Exposure: One or more of the following individualized dose reduction techniques were utilized for this examination: 1. Automated exposure control 2. Adjustment of the mA and/or kV according to patient size 3. Use of iterative reconstruction technique TECHNIQUE: 5 mm contiguous axial images were obtained from the skull base to the vertex in both bone and soft tissue algorithm. FINDINGS: Mild bilateral periventricular white matter hypodensities likely chronic small vessel ischemic disease. No evidence of acute intracranial hemorrhage. No extra-axial fluid collections. No mass effect or midline shift. Ventricular size is appropriate. Basal cisterns are patent. No fractures identified.Romero-white differentiation is preserved.Globes and orbits are within normal limits. Paranasal sinuses and mastoid air cells are clear. IMPRESSION: No acute intracranial findings. Electronically signed by: Timoteo Turcios MD (12/27/2018 4:14 PM) [place] [id number]
[2018-12-27 16:34] LABS: BILIRUBIN,URINE NEGATIVE (NEG); CLARITY,URINE CLEAR; COLOR,URINE YELLOW; NITRITE,URINE NEGATIVE (NEG); PH,URINE 5.5; PROTEIN,URINE >=300 mg/dL (NEG-TRACE); UROBILINOGEN,URINE 0.2 mg/dL (0.2 mg/dL)
[2018-12-27 16:40] LABS: BARBITURATES NEG (NEG); BENZODIAZEPINES NEG (NEG); CANNABINOIDS NEG (NEG); COCAINE NEG (NEG); METHADONE NEG (NEG); OPIATES NEG (NEG); PHENCYCLIDINE NEG (NEG)
[2018-12-27 16:41] LABS: BACTERIA,URINE 0 /HPF (0-FEW); RBC,URINE 0 /HPF (0-2); SQUAMOUS EPITHELIAL CELL,UR OCC /LPF; WBC,URINE OCC /HPF (0-4)
[2018-12-27 16:44] LABS: AMPHETAMINE/METHAMPHETAMINE NEG (NEG)
--- NOTE | 2018-12-27 17:34 | CARD ---
MR#: [id number] Date of Study: 12/27/2018 Ordering Physician: TAMIA BILL, Referring Physician: GIOVANA LECHUGA Tech: Grace Hanson [facility] APPROVED REPORT EXAM: LIMITED Two-dimensional and M-mode echocardiogram. Other Information Quality : AverageHR: 60bpm Rhythm : NSR INDICATION Chest Pain 2D DIMENSIONS RVDd3.0 (2.9-3.5cm)Left Atrium(2D)3.1 (1.6-4.0cm) IVSd0.9 (0.7-1.1cm)Aortic Root(2D)3.5 (2.0-3.7cm) LVDd4.0 (3.9-5.9cm)PWd0.9 (0.7-1.1cm) LVDs2.7 (2.5-4.0cm)FS (%) 34.5 % SV46.0 mlLVEF(%)60.0 (>50%) LEFT VENTRICLE The left ventricle is normal size. There is normal left ventricular wall thickness. The left ventricu lar systolic function is normal. The Ejection Fraction is 55-60%. There is normal LV segmental wall m otion. RIGHT VENTRICLE The right ventricle is normal size. There is normal right ventricular wall thickness. The right ventr icular systolic function is normal. Pacer lead noted in RV/RA. ATRIA The left atrium size is normal. The right atrium size is normal. The interatrial septum is intact wit h no evidence for an atrial septal defect or patent foramen ovale as noted on 2-D or Doppler imaging. GREAT VESSELS The aortic root is normal in size. The ascending aorta is normal in size. The IVC is normal in size a nd collapses >50% with inspiration. PERICARDIAL EFFUSION There is no evidence of significant pericardial effusion. Critical Notification Critical Value: No <Conclusion> Limited echo to assess LV function. The left ventricular systolic function is normal. The Ejection Fraction is 55-60%. There is normal LV segmental wall motion. Pacer lead noted in RV/RA. There is no evidence of significant pericardial effusion. Signed by : Orlando Aguirre, Electronically Approved : 12/27/2018 17:34:01
[2018-12-27] MEDS: CARVEDILOL 12.5 MG TABLET. PO SCH (17:47)
[2018-12-27] MEDS ORDERED: IV NORMAL SALINE 1000ML BAG 1,000 ML IV SCH (18:00)
--- NOTE | 2018-12-27 18:16 | PDOC2 ---
NEUROLOGY CONSULT Date of Admission Date of Admission DATE: 12/27/18 TIME: 18:01 Reason for Consult Reason for Consult: IMPRESSION: Recurrent near-syncopal spells. Chest pain. HTN HLD. Renal disease. Pacemaker placement. Hearing loss. RECOMMENDATIONS/PLAN: HCT w/o contrast . Lab: see orders. May consider CA US. Consulted Cardiology. OT/PT. Discussed with his at bedside. HISTORY OF THE PRESENT ILLNESS: This is a 73-y-old male patient who was admitted with complaints of chest pain and dizziness. He was gardening and was noticed by his that his endurance has decreased which is quite opposite than the endurance he displayed while he was bowling for an hour without any problem when suddenly he felt flushed, had midchest tightness with shoulder discomfort and mildly diaphoretic but no nausea. No SOA. This lasted about 1-2 minutes. He sat down and got better. He started bowling again for round 2 and started having symptoms again 10 minutes later. This did not recur again. He stated he had frequent near syncopal spells about 3 years ago and he had to find place to sit right away and his syncopal symptoms can be resolved. He eventually had pacemaker placement about 2 years and he had not had syncopal spells in the past 2 years until now. No seizures. No focalized sensory or motor deficits. PAST MEDICAL HISTORY Cardiovascular: HTN, Hyperlipidemia Heme/Onc: Anemia NOS, Other (DVT to arm?) Musculoskeletal: Osteoarthritis Renal/: Chronic renal insuff (4), Benign prostatic enlarg., Other (alports syndrome) PAST SURGICAL HISTORY Pacemaker, Cataract Removal, Hernia Repair (right inguinal), Tonsillectomy, Other (rectal polypectomy) FAMILY HISTORY Heart Disease ALLERGIES Coded Allergies: Influenza Virus Vaccines (Verified Allergy, Intermediate, GUILLAIN BARRE SYMPTOMS, 04/16/18) diphenhydramine (Verified Adverse Reaction, Mild, CHANGE IN PERSONALITY, 04/16/18) CHANGE IN PERSONALITY SOCIAL HISTORY Smoke: Quit ALCOHOL: occasionally Drugs: None Lives: with his . REVIEW OF SYSTEMS: Constitutional: No malnutrition, weight loss, cachexia. Head: No traumatic brain or head injury. Skin: No edema, or rash. Ear: No infection. Eyes: No vision loss or color blindness. Nose: No bleeding or purulent discharges. Hearing: Hearing loss. Neck: No injury. Cardiac: CAD, s/p Pacemaker Placement, HTN, HLD. Pulmonary: No COPD. GI: No GI ulcer, GI bleeding. Urinary/genital: UTI. Endocrinologic: Diabetes Mellitus. Skeletomuscular: No muscular atrophy. Neurological: see HP. Psychiatric: Denies drug use/abuse. Otherwise, not [id number] review of systems. PHYSICAL EXAMINATION: General appearance is in subacute distress. HEENT: Normocephalic and nontraumatic. Eyes, nose, ears, and throat are unremarkable. Neck is supple. No lymphadenopathy. No crepitus. Cardiovascular: S1, S2, regular rate and rhythm. Pulmonary: Clear to auscultation bilaterally. Abdomen: Bowel sounds are positive. Abdomen is soft, nontender, and nondistended. Extremities: No rash, lesions, or edema. No restriction of range of motion NEUROLOGICAL EXAMINATION: Alert Oriented to time, place and person. PERRL. EOMI. CN: no focal findings. Muscle tone: within normal. Muscle strength: 5- DTR: 2- Plantar reflex: Flexor response bilaterally Gait: not examined in bed. Sensory exam: no abnormal findings. No cerebellar signs elicited. F-T-N test accurate. Current Medications Current Medications Current Medications Aspirin (Children'S Aspirin) 324 mg 1X ONCE PO Last administered on 12/27/18at 10:15; Start 12/27/18 at 10:00; Stop 12/27/18 at 10:01; Status DC Magnesium Oxide (Magnesium Oxide) 400 mg 1X ONCE PO Last administered on 12/27/18at 11:55; Start 12/27/18 at 11:45; Stop 12/27/18 at 11:46; Status DC Ringer's Solution 1,000 ml @ 75 mls/hr 1X ONCE IV ; Start 12/27/18 at 12:30; Stop 12/28/18 at 01:49 Sodium Chloride 1,000 ml @ 75 mls/hr 1X ONCE IV Last administered on 12/27/18at 17:47; Start 12/27/18 at 16:00; Stop 12/28/18 at 05:19 Atorvastatin Calcium (Lipitor) 40 mg QHS PO ; Start 12/27/18 at 21:00 Carvedilol (Coreg) 12.5 mg BIDWMEALS PO Last administered on 12/27/18at 17:47; Start 12/27/18 at 17:00 Ferrous Sulfate (Feosol) 325 mg QODAY PO ; Start 12/29/18 at 09:00 Lisinopril (Prinivil) 60 mg DAILY PO ; Start 12/28/18 at 09:00; Stop 12/28/18 at 09:00; Status DC Calcium/Vitamin D (Oscal D 500mg/ 200uts) 1 tab DAILY PO ; Start 12/28/18 at 09:00 Fish Oil (Fish Oil) 1,000 mg DAILY PO ; Start 12/28/18 at 09:00 Pantoprazole Sodium (Protonix) 40 mg QHS PO ; Start 12/27/18 at 21:00 Cyanocobalamin (Vitamin B-12) 1,000 mcg DAILY PO ; Start 12/28/18 at 09:00 Sodium Chloride 1,000 ml @ 75 mls/hr [id number] IV ; Start 12/27/18 at 18:00 Active Scripts Active Reported Protonix (Pantoprazole Sodium) 20 Mg Tablet.dr 40 Mg PO HS Calcium + D3 Er Tablet (Calcium Carb & Cit/Vitamin D3) 1 Each Tablet.er 1 Each PO DAILY Carvedilol (Carvedilol) 12.5 Mg Tablet 12.5 Mg PO BIDWMEALS Ferrous Sulfate 325 Mg Tablet 325 Mg PO QODAY Vitamin B-12 (Cyanocobalamin (Vitamin B-12)) 500 Mcg Tablet 500 Mcg PO Lisinopril 40 Mg Tablet 1.5 Tab PO DAILY Fish Oil Conc 1,000 mg Softgel (Hestand-3/Dha/Epa/Fish Oil) 1,000 Mg Capsule 1,000 Mg PO DAILY Atorvastatin Calcium 40 Mg Tablet 40 Mg PO QHS Allergies Allergies: Allergies Coded Allergies Type Severity Reaction Last Updated Verified Influenza Virus Vaccines Allergy Intermediate GUILLAIN BARRE SYMPTOMS 04/16/18 Yes diphenhydramine Adverse Reaction Mild CHANGE IN PERSONALITY 04/16/18 Yes ROS Review of System The patient denies any associated fevers, chills, headache, ear pain, rhinorrhea, sore throat, stiff neck, productive cough, chest pain, shortness of breath, back or flank pain, abdominal pain, nausea, vomiting, diarrhea, constipation, dysuria, rash, numbness, weakness, tingling, incontinence, difficulty ambulating, or diaphoresis. Physical Exam Physical Exam General: Well developed, well nourished, no acute distress, well appearing HEENT: Pupils equally round and reactive to light, EOMI, no discharge, normal conjunctiva Neck: Supple, no nuchal rigidity, no JVD, trachea midline, no tenderness Cardiac: RRR, no murmurs, no gallops, no rubs Chest/Lungs: CTAB, no wheeze, no rhonchi, no crackles Abdomen: soft, non-distended, no guarding, no peritoneal signs, non-tender Back: No tenderness Extremities: no edema, pulses intact, non-tender,capillary refill <3 sec bilateral upper and lower extremities, Neuro: Alert and oriented x 4, no focal deficits, normal speech Vitals Vitals: Vital Signs Date Time Temp Pulse Resp B/P (MAP) Pulse Ox O2 Delivery O2 Flow Rate FiO2 12/27/18 17:47 65 12/27/18 11:30 153/69 (97) 99 Nasal Cannula 12/27/18 10:07 97.8 18 97.8 Labs Labs Laboratory Tests Test 12/27/18 09:48 12/27/18 13:55 12/27/18 16:20 White Blood Count 6.1 x10^3/uL (4.0-11.0) Red Blood Count 3.04 x10^6/uL (4.30-5.70) Hemoglobin 10.0 g/dL (13.0-17.5) Hematocrit 30.1 % (39.0-53.0) Mean Corpuscular Volume 99 fL (79-100) Mean Corpuscular Hemoglobin 33 pg (25-35) Mean Corpuscular Hemoglobin Concent 33 g/dL (31-37) Red Cell Distribution Width 13.3 % (11.5-14.5) Platelet Count 215 x10^3/uL (140-400) Neutrophils (%) (Auto) 60 % (31-73) Lymphocytes (%) (Auto) 23 % (24-48) Monocytes (%) (Auto) 11 % (0-9) Eosinophils (%) (Auto) 7 % (0-3) Basophils (%) (Auto) 1 % (0-3) Neutrophils # (Auto) 3.7 x10^3uL (1.8-7.7) Lymphocytes # (Auto) 1.4 x10^3/uL (1.0-4.8) Monocytes # (Auto) 0.7 x10^3/uL (0.0-1.1) Eosinophils # (Auto) 0.4 x10^3/uL (0.0-0.7) Basophils # (Auto) 0.0 x10^3/uL (0.0-0.2) Prothrombin Time 13.1 SEC (11.7-14.0) Prothromb Time International Ratio 1.0 (0.8-1.1) Sodium Level 146 mmol/L (136-145) Potassium Level 4.3 mmol/L (3.5-5.1) Chloride Level 112 mmol/L (98-107) Carbon Dioxide Level 21 mmol/L (21-32) Anion Gap 13 (6-14) Blood Urea Nitrogen 54 mg/dL (8-26) Creatinine 3.3 mg/dL (0.7-1.3) Estimated GFR (Cockcroft-Gault) 18.4 BUN/Creatinine Ratio 16 (6-20) Glucose Level 109 mg/dL (70-99) Calcium Level 8.7 mg/dL (8.5-10.1) Magnesium Level 1.6 mg/dL (1.8-2.4) Total Bilirubin 0.4 mg/dL (0.2-1.0) Aspartate Amino Transf (AST/SGOT) 26 U/L (15-37) Alanine Aminotransferase (ALT/SGPT) 24 U/L (16-63) Alkaline Phosphatase 80 U/L (46-116) Creatine Kinase 131 U/L (39-308) Creatine Kinase MB (Mass) 1.6 ng/mL (0.0-3.6) Creatine Kinase MB Relative Index 1.2 % (0-4) Troponin I Quantitative < 0.017 ng/mL (0.000-0.055) < 0.017 ng/mL (0.000-0.055) JP-Uod-S-Type Natriuretic Peptide 902 pg/mL (0-124) Total Protein 5.9 g/dL (6.4-8.2) Albumin 2.9 g/dL (3.4-5.0) Albumin/Globulin Ratio 1.0 (1.0-1.7) Triglycerides Level 124 mg/dL (0-150) Cholesterol Level 152 mg/dL (0-200) LDL Cholesterol, Calculated 94 mg/dL (0-100) VLDL Cholesterol, Calculated 25 mg/dL (0-40) Non-HDL Cholesterol Calculated 119 mg/dL (0-129) HDL Cholesterol 33 mg/dL (40-60) Cholesterol/HDL Ratio 4.6 Lipase 232 U/L (73-393) Thyroid Stimulating Hormone (TSH) 1.211 uIU/mL (0.358-3.74) Urine Color Yellow Urine Clarity Clear Urine pH 5.5 Urine Specific [place] 1.015 Urine Protein >=300 mg/dL (NEG-TRACE) Urine Glucose (UA) Negative mg/dL (NEG) Urine Ketones (Stick) Negative mg/dL (NEG) Urine Blood Negative (NEG) Urine Nitrite Negative (NEG) Urine Bilirubin Negative (NEG) Urine Urobilinogen Dipstick 0.2 mg/dL (0.2 mg/dL) Urine Leukocyte Esterase Negative (NEG) Urine RBC 0 /HPF (0-2) Urine WBC Occ /HPF (0-4) Urine Squamous Epithelial Cells Occ /LPF Urine Bacteria 0 /HPF (0-FEW) Urine Opiates Screen Neg (NEG) Urine Methadone Screen Neg (NEG) Urine Barbiturates Neg (NEG) Urine Phencyclidine Screen Neg (NEG) Urine Amphetamine/Methamphetamine Neg (NEG) Urine Benzodiazepines Screen Neg (NEG) Urine Cocaine Screen Neg (NEG) Urine Cannabinoids Screen Neg (NEG) Urine Ethyl Alcohol Neg (NEG) Laboratory Tests Test 12/27/18 09:48 12/27/18 13:55 12/27/18 16:20 White Blood Count 6.1 x10^3/uL (4.0-11.0) Red Blood Count 3.04 x10^6/uL (4.30-5.70) Hemoglobin 10.0 g/dL (13.0-17.5) Hematocrit 30.1 % (39.0-53.0) Mean Corpuscular Volume 99 fL (79-100) Mean Corpuscular Hemoglobin 33 pg (25-35) Mean Corpuscular Hemoglobin Concent 33 g/dL (31-37) Red Cell Distribution Width 13.3 % (11.5-14.5) Platelet Count 215 x10^3/uL (140-400) Neutrophils (%) (Auto) 60 % (31-73) Lymphocytes (%) (Auto) 23 % (24-48) Monocytes (%) (Auto) 11 % (0-9) Eosinophils (%) (Auto) 7 % (0-3) Basophils (%) (Auto) 1 % (0-3) Neutrophils # (Auto) 3.7 x10^3uL (1.8-7.7) Lymphocytes # (Auto) 1.4 x10^3/uL (1.0-4.8) Monocytes # (Auto) 0.7 x10^3/uL (0.0-1.1) Eosinophils # (Auto) 0.4 x10^3/uL (0.0-0.7) Basophils # (Auto) 0.0 x10^3/uL (0.0-0.2) Prothrombin Time 13.1 SEC (11.7-14.0) Prothromb Time International Ratio 1.0 (0.8-1.1) Sodium Level 146 mmol/L (136-145) Potassium Level 4.3 mmol/L (3.5-5.1) Chloride Level 112 mmol/L (98-107) Carbon Dioxide Level 21 mmol/L (21-32) Anion Gap 13 (6-14) Blood Urea Nitrogen 54 mg/dL (8-26) Creatinine 3.3 mg/dL (0.7-1.3) Estimated GFR (Cockcroft-Gault) 18.4 BUN/Creatinine Ratio 16 (6-20) Glucose Level 109 mg/dL (70-99) Calcium Level 8.7 mg/dL (8.5-10.1) Magnesium Level 1.6 mg/dL (1.8-2.4) Total Bilirubin 0.4 mg/dL (0.2-1.0) Aspartate Amino Transf (AST/SGOT) 26 U/L (15-37) Alanine Aminotransferase (ALT/SGPT) 24 U/L (16-63) Alkaline Phosphatase 80 U/L (46-116) Creatine Kinase 131 U/L (39-308) Creatine Kinase MB (Mass) 1.6 ng/mL (0.0-3.6) Creatine Kinase MB Relative Index 1.2 % (0-4) Troponin I Quantitative < 0.017 ng/mL (0.000-0.055) < 0.017 ng/mL (0.000-0.055) [id number]-Type Natriuretic Peptide 902 pg/mL (0-124) Total Protein 5.9 g/dL (6.4-8.2) Albumin 2.9 g/dL (3.4-5.0) Albumin/Globulin Ratio 1.0 (1.0-1.7) Triglycerides Level 124 mg/dL (0-150) Cholesterol Level 152 mg/dL (0-200) LDL Cholesterol, Calculated 94 mg/dL (0-100) VLDL Cholesterol, Calculated 25 mg/dL (0-40) Non-HDL Cholesterol Calculated 119 mg/dL (0-129) HDL Cholesterol 33 mg/dL (40-60) Cholesterol/HDL Ratio 4.6 Lipase 232 U/L (73-393) Thyroid Stimulating Hormone (TSH) 1.211 uIU/mL (0.358-3.74) Urine Color Yellow Urine Clarity Clear Urine pH 5.5 Urine Specific [place] 1.015 Urine Protein >=300 mg/dL (NEG-TRACE) Urine Glucose (UA) Negative mg/dL (NEG) Urine Ketones (Stick) Negative mg/dL (NEG) Urine Blood Negative (NEG) Urine Nitrite Negative (NEG) Urine Bilirubin Negative (NEG) Urine Urobilinogen Dipstick 0.2 mg/dL (0.2 mg/dL) Urine Leukocyte Esterase Negative (NEG) Urine RBC 0 /HPF (0-2) Urine WBC Occ /HPF (0-4) Urine Squamous Epithelial Cells Occ /LPF Urine Bacteria 0 /HPF (0-FEW) Urine Opiates Screen Neg (NEG) Urine Methadone Screen Neg (NEG) Urine Barbiturates Neg (NEG) Urine Phencyclidine Screen Neg (NEG) Urine Amphetamine/Methamphetamine Neg (NEG) Urine Benzodiazepines Screen Neg (NEG) Urine Cocaine Screen Neg (NEG) Urine Cannabinoids Screen Neg (NEG) Urine Ethyl Alcohol Neg (NEG) OILNDA IRENE MD December 27, 2018 18:16
[2018-12-27 19:57] VITALS: BP 158/66
[2018-12-27] MEDS: PANTOPRAZOLE 40 MG TABLET.DR. PO SCH (21:10)
[2018-12-27] MEDS: ATORVASTATIN CALCIUM 40 MG TABLET. PO SCH (21:10)
[2018-12-27 23:50] VITALS: BP 131/56
[2018-12-28] VITALS (8 sets, daily range): BP systolic 123–154; BP diastolic 50–73
[2018-12-28 04:14] LABS: BASO % 1 % (0-3); EOS # 0.4 x10^3/uL (0.0-0.7); EOS % 6 % (0-3); HEMATOCRIT 26.2 % (39.0-53.0); HEMOGLOBIN 8.8 g/dL (13.0-17.5); LYMPH # 1.6 x10^3/uL (1.0-4.8); LYMPH % 28 % (24-48); MEAN CORPUSCULAR HEMOGLOBIN 33 pg (25-35); MEAN CORPUSCULAR HGB CONC 34 g/dL (31-37); MEAN CORPUSCULAR VOLUME 98 fL (79-100); MONO # 0.6 x10^3/uL (0.0-1.1); MONO % 11 % (0-9); NEUT # 3.2 x10^3uL (1.8-7.7); NEUT % 55 % (31-73); PLATELET COUNT 182 x10^3/uL (140-400); RED BLOOD COUNT 2.67 x10^6/uL (4.30-5.70); RED CELL DISTRIBUTION WIDTH 13.1 % (11.5-14.5); WHITE BLOOD COUNT 5.8 x10^3/uL (4.0-11.0)
[2018-12-28 04:28] LABS: CALCIUM 8.3 mg/dL (8.5-10.1); CREATININE 2.8 mg/dL (0.7-1.3); GFR 22.3; POTASSIUM 3.9 mmol/L (3.5-5.1)
[2018-12-28] MEDS: OMEGA-3 FATTY ACIDS/FISH OIL 1,000 MG CAPSULE. PO SCH (08:58)
[2018-12-28] MEDS: CALCIUM CARB/VIT D3 500/200 TABLET. PO SCH (08:58)
[2018-12-28] MEDS: CYANOCOBALAMIN (VITAMIN B-12) 1,000 MCG TABLET. PO SCH (08:58)
[2018-12-28] MEDS: CARVEDILOL 12.5 MG TABLET. PO SCH ×2 (08:58→16:52)
[2018-12-28] MEDS ORDERED: LISINOPRIL 20 MG TABLET PO SCH (09:00)
--- NOTE | 2018-12-28 10:07 | PDOC ---
PROGRESS NOTES History of Present Illness History of Present Illness VTE Prophylaxis Ordered VTE Prophylaxis Devices: Yes VTE Pharmacological Prophylaxi: Yes Assessment/Plan Assessment/Plan impression 1. chest discomfort 2. exercise intolerance, may be angina equivalence 3. hyperlipidemia 4. hypertension 5, ckd 6. renal failure CR DOWN TO 2.8 plan admit serial troponin i cvc bed home meds TTE, TSH, carotid dopplers. hold home lisinopril, IV hydrate x1 L Interrogate pacemaker Orthostatic bp ASA, Mg replaced. cardiology consult dvt prophylaxis nephrology consult 44 min pt exam, chart review, > 50% of time spent with exam, chart review, pt care coordination Past Medical History Past Medical History: Anemia, Arrhythmia, High Cholesterol, Hypertension, Renal Disease, Other Additional Past Medical Histor: WET MAC D Past Surgical History: Pacemaker, Other Additional Past Surgical Histo: HERNIA Alcohol Use: Occasionally Drug Use: None Vitals Vitals Vital Signs Date Time Temp Pulse Resp B/P (MAP) Pulse Ox O2 Delivery O2 Flow Rate FiO2 12/28/18 08:58 60 153/65 12/28/18 07:42 Room Air 12/28/18 07:15 97.8 18 97 97.8 Physical Exam General: Alert, Oriented X3, Cooperative Heart: Regular rate (atrial paced), Normal S1, Normal S2, No murmurs Lungs: Clear Abdomen: Normal bowel sounds, Soft Extremities: No cyanosis, No edema Skin: No significant lesion Labs LABS Laboratory Tests Test 12/27/18 13:55 12/27/18 16:20 12/27/18 17:55 12/28/18 03:30 Troponin I Quantitative < 0.017 ng/mL (0.000-0.055) < 0.017 ng/mL (0.000-0.055) Urine Color Yellow Urine Clarity Clear Urine pH 5.[address] [place] 1.015 Urine Protein >=300 mg/dL (NEG-TRACE) Urine Glucose (UA) Negative mg/dL (NEG) Urine Ketones (Stick) Negative mg/dL (NEG) Urine Blood Negative (NEG) Urine Nitrite Negative (NEG) Urine Bilirubin Negative (NEG) Urine Urobilinogen Dipstick 0.2 mg/dL (0.2 mg/dL) Urine Leukocyte Esterase Negative (NEG) Urine RBC 0 /HPF (0-2) Urine WBC Occ /HPF (0-4) Urine Squamous Epithelial Cells Occ /LPF Urine Bacteria 0 /HPF (0-FEW) Urine Opiates Screen Neg (NEG) Urine Methadone Screen Neg (NEG) Urine Barbiturates Neg (NEG) Urine Phencyclidine Screen Neg (NEG) Urine Amphetamine/Methamphetamine Neg (NEG) Urine Benzodiazepines Screen Neg (NEG) Urine Cocaine Screen Neg (NEG) Urine Cannabinoids Screen Neg (NEG) Urine Ethyl Alcohol Neg (NEG) White Blood Count 5.8 x10^3/uL (4.0-11.0) Red Blood Count 2.67 x10^6/uL (4.30-5.70) Hemoglobin 8.8 g/dL (13.0-17.5) Hematocrit 26.2 % (39.0-53.0) Mean Corpuscular Volume 98 fL (79-100) Mean Corpuscular Hemoglobin 33 pg (25-35) Mean Corpuscular Hemoglobin Concent 34 g/dL (31-37) Red Cell Distribution Width 13.1 % (11.5-14.5) Platelet Count 182 x10^3/uL (140-400) Neutrophils (%) (Auto) 55 % (31-73) Lymphocytes (%) (Auto) 28 % (24-48) Monocytes (%) (Auto) 11 % (0-9) Eosinophils (%) (Auto) 6 % (0-3) Basophils (%) (Auto) 1 % (0-3) Neutrophils # (Auto) 3.2 x10^3uL (1.8-7.7) Lymphocytes # (Auto) 1.6 x10^3/uL (1.0-4.8) Monocytes # (Auto) 0.6 x10^3/uL (0.0-1.1) Eosinophils # (Auto) 0.4 x10^3/uL (0.0-0.7) Basophils # (Auto) 0.0 x10^3/uL (0.0-0.2) Sodium Level 143 mmol/L (136-145) Potassium Level 3.9 mmol/L (3.5-5.1) Chloride Level 110 mmol/L (98-107) Carbon Dioxide Level 21 mmol/L (21-32) Anion Gap 12 (6-14) Blood Urea Nitrogen 50 mg/dL (8-26) Creatinine 2.8 mg/dL (0.7-1.3) Estimated GFR (Cockcroft-Gault) 22.3 Glucose Level 91 mg/dL (70-99) Calcium Level 8.3 mg/dL (8.5-10.1) Magnesium Level 1.6 mg/dL (1.8-2.4) Assessment and Plan Assessmemt and Plan Problems Medical Problems: (1) Acute chest pain Status: Acute (2) Chronic renal insufficiency Status: Acute (3) Hyperchloremia Status: Acute (4) Hypernatremia Status: Acute Comment Review of Relevant I have reviewed the following items nancy (where applicable) has been applied. Labs Laboratory Tests Test 12/27/18 09:48 12/27/18 13:55 12/27/18 16:20 12/27/18 17:55 White Blood Count 6.1 x10^3/uL (4.0-11.0) Red Blood Count 3.04 x10^6/uL (4.30-5.70) Hemoglobin 10.0 g/dL (13.0-17.5) Hematocrit 30.1 % (39.0-53.0) Mean Corpuscular Volume 99 fL (79-100) Mean Corpuscular Hemoglobin 33 pg (25-35) Mean Corpuscular Hemoglobin Concent 33 g/dL (31-37) Red Cell Distribution Width 13.3 % (11.5-14.5) Platelet Count 215 x10^3/uL (140-400) Neutrophils (%) (Auto) 60 % (31-73) Lymphocytes (%) (Auto) 23 % (24-48) Monocytes (%) (Auto) 11 % (0-9) Eosinophils (%) (Auto) 7 % (0-3) Basophils (%) (Auto) 1 % (0-3) Neutrophils # (Auto) 3.7 x10^3uL (1.8-7.7) Lymphocytes # (Auto) 1.4 x10^3/uL (1.0-4.8) Monocytes # (Auto) 0.7 x10^3/uL (0.0-1.1) Eosinophils # (Auto) 0.4 x10^3/uL (0.0-0.7) Basophils # (Auto) 0.0 x10^3/uL (0.0-0.2) Prothrombin Time 13.1 SEC (11.7-14.0) Prothromb Time International Ratio 1.0 (0.8-1.1) Sodium Level 146 mmol/L (136-145) Potassium Level 4.3 mmol/L (3.5-5.1) Chloride Level 112 mmol/L (98-107) Carbon Dioxide Level 21 mmol/L (21-32) Anion Gap 13 (6-14) Blood Urea Nitrogen 54 mg/dL (8-26) Creatinine 3.3 mg/dL (0.7-1.3) Estimated GFR (Cockcroft-Gault) 18.4 BUN/Creatinine Ratio 16 (6-20) Glucose Level 109 mg/dL (70-99) Calcium Level 8.7 mg/dL (8.5-10.1) Magnesium Level 1.6 mg/dL (1.8-2.4) Total Bilirubin 0.4 mg/dL (0.2-1.0) Aspartate Amino Transf (AST/SGOT) 26 U/L (15-37) Alanine Aminotransferase (ALT/SGPT) 24 U/L (16-63) Alkaline Phosphatase 80 U/L (46-116) Creatine Kinase 131 U/L (39-308) Creatine Kinase MB (Mass) 1.6 ng/mL (0.0-3.6) Creatine Kinase MB Relative Index 1.2 % (0-4) Troponin I Quantitative < 0.017 ng/mL (0.000-0.055) < 0.017 ng/mL (0.000-0.055) < 0.017 ng/mL (0.000-0.055) WE-Mgm-E-Type Natriuretic Peptide 902 pg/mL (0-124) Total Protein 5.9 g/dL (6.4-8.2) Albumin 2.9 g/dL (3.4-5.0) Albumin/Globulin Ratio 1.0 (1.0-1.7) Triglycerides Level 124 mg/dL (0-150) Cholesterol Level 152 mg/dL (0-200) LDL Cholesterol, Calculated 94 mg/dL (0-100) VLDL Cholesterol, Calculated 25 mg/dL (0-40) Non-HDL Cholesterol Calculated 119 mg/dL (0-129) HDL Cholesterol 33 mg/dL (40-60) Cholesterol/HDL Ratio 4.6 Lipase 232 U/L (73-393) Thyroid Stimulating Hormone (TSH) 1.211 uIU/mL (0.358-3.74) Urine Color Yellow Urine Clarity Clear Urine pH 5.[address] [place] 1.015 Urine Protein >=300 mg/dL (NEG-TRACE) Urine Glucose (UA) Negative mg/dL (NEG) Urine Ketones (Stick) Negative mg/dL (NEG) Urine Blood Negative (NEG) Urine Nitrite Negative (NEG) Urine Bilirubin Negative (NEG) Urine Urobilinogen Dipstick 0.2 mg/dL (0.2 mg/dL) Urine Leukocyte Esterase Negative (NEG) Urine RBC 0 /HPF (0-2) Urine WBC Occ /HPF (0-4) Urine Squamous Epithelial Cells Occ /LPF Urine Bacteria 0 /HPF (0-FEW) Urine Opiates Screen Neg (NEG) Urine Methadone Screen Neg (NEG) Urine Barbiturates Neg (NEG) Urine Phencyclidine Screen Neg (NEG) Urine Amphetamine/Methamphetamine Neg (NEG) Urine Benzodiazepines Screen Neg (NEG) Urine Cocaine Screen Neg (NEG) Urine Cannabinoids Screen Neg (NEG) Urine Ethyl Alcohol Neg (NEG) Test 12/28/18 03:30 White Blood Count 5.8 x10^3/uL (4.0-11.0) Red Blood Count 2.67 x10^6/uL (4.30-5.70) Hemoglobin 8.8 g/dL (13.0-17.5) Hematocrit 26.2 % (39.0-53.0) Mean Corpuscular Volume 98 fL (79-100) Mean Corpuscular Hemoglobin 33 pg (25-35) Mean Corpuscular Hemoglobin Concent 34 g/dL (31-37) Red Cell Distribution Width 13.1 % (11.5-14.5) Platelet Count 182 x10^3/uL (140-400) Neutrophils (%) (Auto) 55 % (31-73) Lymphocytes (%) (Auto) 28 % (24-48) Monocytes (%) (Auto) 11 % (0-9) Eosinophils (%) (Auto) 6 % (0-3) Basophils (%) (Auto) 1 % (0-3) Neutrophils # (Auto) 3.2 x10^3uL (1.8-7.7) Lymphocytes # (Auto) 1.6 x10^3/uL (1.0-4.8) Monocytes # (Auto) 0.6 x10^3/uL (0.0-1.1) Eosinophils # (Auto) 0.4 x10^3/uL (0.0-0.7) Basophils # (Auto) 0.0 x10^3/uL (0.0-0.2) Sodium Level 143 mmol/L (136-145) Potassium Level 3.9 mmol/L (3.5-5.1) Chloride Level 110 mmol/L (98-107) Carbon Dioxide Level 21 mmol/L (21-32) Anion Gap 12 (6-14) Blood Urea Nitrogen 50 mg/dL (8-26) Creatinine 2.8 mg/dL (0.7-1.3) Estimated GFR (Cockcroft-Gault) 22.3 Glucose Level 91 mg/dL (70-99) Calcium Level 8.3 mg/dL (8.5-10.1) Magnesium Level 1.6 mg/dL (1.8-2.4) Laboratory Tests Test 12/27/18 13:55 12/27/18 16:20 12/27/18 17:55 12/28/18 03:30 Troponin I Quantitative < 0.017 ng/mL (0.000-0.055) < 0.017 ng/mL (0.000-0.055) Urine Color Yellow Urine Clarity Clear Urine pH 5.[address] [place] 1.015 Urine Protein >=300 mg/dL (NEG-TRACE) Urine Glucose (UA) Negative mg/dL (NEG) Urine Ketones (Stick) Negative mg/dL (NEG) Urine Blood Negative (NEG) Urine Nitrite Negative (NEG) Urine Bilirubin Negative (NEG) Urine Urobilinogen Dipstick 0.2 mg/dL (0.2 mg/dL) Urine Leukocyte Esterase Negative (NEG) Urine RBC 0 /HPF (0-2) Urine WBC Occ /HPF (0-4) Urine Squamous Epithelial Cells Occ /LPF Urine Bacteria 0 /HPF (0-FEW) Urine Opiates Screen Neg (NEG) Urine Methadone Screen Neg (NEG) Urine Barbiturates Neg (NEG) Urine Phencyclidine Screen Neg (NEG) Urine Amphetamine/Methamphetamine Neg (NEG) Urine Benzodiazepines Screen Neg (NEG) Urine Cocaine Screen Neg (NEG) Urine Cannabinoids Screen Neg (NEG) Urine Ethyl Alcohol Neg (NEG) White Blood Count 5.8 x10^3/uL (4.0-11.0) Red Blood Count 2.67 x10^6/uL (4.30-5.70) Hemoglobin 8.8 g/dL (13.0-17.5) Hematocrit 26.2 % (39.0-53.0) Mean Corpuscular Volume 98 fL (79-100) Mean Corpuscular Hemoglobin 33 pg (25-35) Mean Corpuscular Hemoglobin Concent 34 g/dL (31-37) Red Cell Distribution Width 13.1 % (11.5-14.5) Platelet Count 182 x10^3/uL (140-400) Neutrophils (%) (Auto) 55 % (31-73) Lymphocytes (%) (Auto) 28 % (24-48) Monocytes (%) (Auto) 11 % (0-9) Eosinophils (%) (Auto) 6 % (0-3) Basophils (%) (Auto) 1 % (0-3) Neutrophils # (Auto) 3.2 x10^3uL (1.8-7.7) Lymphocytes # (Auto) 1.6 x10^3/uL (1.0-4.8) Monocytes # (Auto) 0.6 x10^3/uL (0.0-1.1) Eosinophils # (Auto) 0.4 x10^3/uL (0.0-0.7) Basophils # (Auto) 0.0 x10^3/uL (0.0-0.2) Sodium Level 143 mmol/L (136-145) Potassium Level 3.9 mmol/L (3.5-5.1) Chloride Level 110 mmol/L (98-107) Carbon Dioxide Level 21 mmol/L (21-32) Anion Gap 12 (6-14) Blood Urea Nitrogen 50 mg/dL (8-26) Creatinine 2.8 mg/dL (0.7-1.3) Estimated GFR (Cockcroft-Gault) 22.3 Glucose Level 91 mg/dL (70-99) Calcium Level 8.3 mg/dL (8.5-10.1) Magnesium Level 1.6 mg/dL (1.8-2.4) Medications Current Medications Aspirin (Children'S Aspirin) 324 mg 1X ONCE PO Last administered on 12/27/18at 10:15; Start 12/27/18 at 10:00; Stop 12/27/18 at 10:01; Status DC Magnesium Oxide (Magnesium Oxide) 400 mg 1X ONCE PO Last administered on at 11:55; Start 12/27/18 at 11:45; Stop 12/27/18 at 11:46; Status DC Ringer's Solution 1,000 ml @ 75 mls/hr 1X ONCE IV ; Start 12/27/18 at 12:30; Stop 12/28/18 at 01:49; Status DC Sodium Chloride 1,000 ml @ 75 mls/hr 1X ONCE IV Last administered on 12/27/18at 17:47; Start 12/27/18 at 16:00; Stop 12/28/18 at 05:19; Status DC Atorvastatin Calcium (Lipitor) 40 mg QHS PO Last administered on 12/27/18at 21:10; Start 12/27/18 at 21:00 Carvedilol (Coreg) 12.5 mg BIDWMEALS PO Last administered on 12/28/18at 08:58; Start 12/27/18 at 17:00 Ferrous Sulfate (Feosol) 325 mg QODAY PO ; Start 12/29/18 at 09:00 Lisinopril (Prinivil) 60 mg DAILY PO ; Start 12/28/18 at 09:00; Stop 12/28/18 at 09:00; Status DC Calcium/Vitamin D (Oscal D 500mg/ 200uts) 1 tab DAILY PO Last administered on 12/28/18at 08:58; Start 12/28/18 at 09:00 Fish Oil (Fish Oil) 1,000 mg DAILY PO Last administered on 12/28/18at 08:58; Start 12/28/18 at 09:00 Pantoprazole Sodium (Protonix) 40 mg QHS PO Last administered on 12/27/18at 21:10; Start 12/27/18 at 21:00 Cyanocobalamin (Vitamin B-12) 1,000 mcg DAILY PO Last administered on 12/28/18at 08:58; Start 12/28/18 at 09:00 Sodium Chloride 1,000 ml @ 75 mls/hr [id number] IV ; Start 12/27/18 at 18:00 Active Scripts Active Reported Protonix (Pantoprazole Sodium) 20 Mg Tablet.dr 40 Mg PO HS Calcium + D3 Er Tablet (Calcium Carb & Cit/Vitamin D3) 1 Each Tablet.er 1 Each PO DAILY Carvedilol (Carvedilol) 12.5 Mg Tablet 12.5 Mg PO BIDWMEALS Ferrous Sulfate 325 Mg Tablet 325 Mg PO QODAY Vitamin B-12 (Cyanocobalamin (Vitamin B-12)) 500 Mcg Tablet 500 Mcg PO Lisinopril 40 Mg Tablet 1.5 Tab PO DAILY Fish Oil Conc 1,000 mg Softgel ([place]-3/Dha/Epa/Fish Oil) 1,000 Mg Capsule 1,000 Mg PO DAILY Atorvastatin Calcium 40 Mg Tablet 40 Mg PO QHS Vitals/I & O Vital Sign - Last 24 Hours 12/27/18 12/27/18 12/27/18 12/27/18 10:30 11:00 11:30 12:50 Temp 97.5 97.5 Pulse 60 60 60 60 Resp 16 B/P (MAP) 150/72 (98) 143/66 (91) 153/69 (97) 168/58 (94) Pulse Ox 99 99 99 99 O2 Delivery Room Air Room Air Nasal Cannula Room Air 12/27/18 12/27/18 12/27/18 12/27/18 14:00 15:00 17:47 19:57 Temp 97.5 97.6 97.5 97.6 Pulse 60 65 60 Resp 16 16 B/P (MAP) 166/62 (96) 158/66 (96) Pulse Ox 98 99 O2 Delivery Room Air Room Air Room Air 12/27/18 12/27/18 12/28/18 12/28/18 20:20 23:50 03:13 07:15 Temp 97.6 97.6 97.8 97.6 97.6 97.8 Pulse 60 60 60 Resp 16 16 18 B/P (MAP) 131/56 (81) 135/50 (78) 153/65 (94) Pulse Ox 97 97 97 O2 Delivery Room Air Room Air Room Air Room Air 12/28/18 12/28/18 07:42 08:58 Pulse 60 B/P (MAP) 153/65 O2 Delivery Room Air Intake and Output 12/27/18 12/27/18 12/28/18 14:59 22:59 06:59 Intake Total 240 ml 1100 ml Output Total 875 ml Balance 240 ml 225 ml GIOVANA LECHUGA MD December 28, 2018 10:07
--- NOTE | 2018-12-28 10:43 | PDOC ---
PROGRESS NOTES Subjective Subjective Patient denied any chest pain today. Objective Objective Vital Signs Date Time Temp Pulse Resp B/P (MAP) Pulse Ox O2 Delivery O2 Flow Rate FiO2 12/28/18 08:58 60 153/65 12/28/18 07:42 Room Air 12/28/18 07:15 97.8 18 97 97.8 Intake and Output 12/28/18 07:00 Intake Total 1340 ml Output Total 875 ml Balance 465 ml Intake Oral 440 ml IV Total 900 ml Output Urine Total 875 ml # Voids 2 Physical Exam Abdomen: Normal bowel sounds, Soft Heart: Regular rate (atrial paced), Normal S1, Normal S2, No murmurs Extremities: No cyanosis, No edema General: Oriented X3, Cooperative HEENT: Atraumatic Lungs: Clear to auscultation MUSCULOSKELETAL: Osteoarthritic changes both hands Neuro: Cranial nerves 3-12 NL Psych/Mental Status: Mental status NL Skin: No significant lesion Assessment Assessment 1. CP: mixed features: Myocardial infarction has been ruled out. Limited 2-D echo showed normal LV function without any wall motion abnormalities. Plan for outpatient ischemic evaluation with stress test. 2. PPM in situ with hx of SSS: [place]. Device interrogation showed normal function without any arrhythmias recorded. 3. 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 Creatinine slightly improved with hydration. Consider nephrology consultation. 4. HTN; controlled Plan Plan of Care Problems Medical Problems: (1) Acute chest pain Status: Acute (2) Chronic renal insufficiency Status: Acute (3) Hyperchloremia Status: Acute (4) Hypernatremia Status: Acute Comment Review of Relevant I have reviewed the following items nancy (where applicable) has been applied. Labs Laboratory Tests Test 12/27/18 13:55 12/27/18 16:20 12/27/18 17:55 12/28/18 03:30 Troponin I Quantitative < 0.017 ng/mL (0.000-0.055) < 0.017 ng/mL (0.000-0.055) Urine Color Yellow Urine Clarity Clear Urine pH 5.5 Urine Specific [place] 1.015 Urine Protein >=300 mg/dL (NEG-TRACE) Urine Glucose (UA) Negative mg/dL (NEG) Urine Ketones (Stick) Negative mg/dL (NEG) Urine Blood Negative (NEG) Urine Nitrite Negative (NEG) Urine Bilirubin Negative (NEG) Urine Urobilinogen Dipstick 0.2 mg/dL (0.2 mg/dL) Urine Leukocyte Esterase Negative (NEG) Urine RBC 0 /HPF (0-2) Urine WBC Occ /HPF (0-4) Urine Squamous Epithelial Cells Occ /LPF Urine Bacteria 0 /HPF (0-FEW) Urine Opiates Screen Neg (NEG) Urine Methadone Screen Neg (NEG) Urine Barbiturates Neg (NEG) Urine Phencyclidine Screen Neg (NEG) Urine Amphetamine/Methamphetamine Neg (NEG) Urine Benzodiazepines Screen Neg (NEG) Urine Cocaine Screen Neg (NEG) Urine Cannabinoids Screen Neg (NEG) Urine Ethyl Alcohol Neg (NEG) White Blood Count 5.8 x10^3/uL (4.0-11.0) Red Blood Count 2.67 x10^6/uL (4.30-5.70) Hemoglobin 8.8 g/dL (13.0-17.5) Hematocrit 26.2 % (39.0-53.0) Mean Corpuscular Volume 98 fL (79-100) Mean Corpuscular Hemoglobin 33 pg (25-35) Mean Corpuscular Hemoglobin Concent 34 g/dL (31-37) Red Cell Distribution Width 13.1 % (11.5-14.5) Platelet Count 182 x10^3/uL (140-400) Neutrophils (%) (Auto) 55 % (31-73) Lymphocytes (%) (Auto) 28 % (24-48) Monocytes (%) (Auto) 11 % (0-9) Eosinophils (%) (Auto) 6 % (0-3) Basophils (%) (Auto) 1 % (0-3) Neutrophils # (Auto) 3.2 x10^3uL (1.8-7.7) Lymphocytes # (Auto) 1.6 x10^3/uL (1.0-4.8) Monocytes # (Auto) 0.6 x10^3/uL (0.0-1.1) Eosinophils # (Auto) 0.4 x10^3/uL (0.0-0.7) Basophils # (Auto) 0.0 x10^3/uL (0.0-0.2) Sodium Level 143 mmol/L (136-145) Potassium Level 3.9 mmol/L (3.5-5.1) Chloride Level 110 mmol/L (98-107) Carbon Dioxide Level 21 mmol/L (21-32) Anion Gap 12 (6-14) Blood Urea Nitrogen 50 mg/dL (8-26) Creatinine 2.8 mg/dL (0.7-1.3) Estimated GFR (Cockcroft-Gault) 22.3 Glucose Level 91 mg/dL (70-99) Calcium Level 8.3 mg/dL (8.5-10.1) Magnesium Level 1.6 mg/dL (1.8-2.4) Medications Current Medications Atorvastatin Calcium (Lipitor) 40 mg QHS PO Last administered on 12/27/18 21:10; Start 12/27/18 at 21:00 Calcium/Vitamin D (Oscal D 500mg/ 200uts) 1 tab DAILY PO Last administered on 12/28/18 08:58; Start 12/28/18 at 09:00 Carvedilol (Coreg) 12.5 mg BIDWMEALS PO Last administered on 12/28/18 08:58; Start 12/27/18 at 17:00 Cyanocobalamin (Vitamin B-12) 1,000 mcg DAILY PO Last administered on 12/28/18 08:58; Start 12/28/18 at 09:00 Ferrous Sulfate (Feosol) 325 mg QODAY PO ; Start 12/29/18 at 09:00 Fish Oil (Fish Oil) 1,000 mg DAILY PO Last administered on 12/28/18at 08:58; Start 12/28/18 at 09:00 Lisinopril (Prinivil) 60 mg DAILY PO ; Start 12/28/18 at 09:00; Stop 12/28/18 at 09:00; Status DC Magnesium Oxide (Magnesium Oxide) 400 mg 1X ONCE PO Last administered on 12/27/18at 11:55; Start 12/27/18 at 11:45; Stop 12/27/18 at 11:46; Status DC Pantoprazole Sodium (Protonix) 40 mg QHS PO Last administered on 12/27/18at 21:10; Start 12/27/18 at 21:00 Ringer's Solution 1,000 ml @ 75 mls/hr 1X ONCE IV ; Start 12/27/18 at 12:30; Stop 12/28/18 at 01:49; Status DC Sodium Chloride 1,000 ml @ 75 mls/hr 1X ONCE IV Last administered on 12/27/18at 17:47; Start 12/27/18 at 16:00; Stop 12/28/18 at 05:19; Status DC Sodium Chloride 1,000 ml @ 75 mls/hr [id number] IV ; Start 12/27/18 at 18:00 Vitals/I & O Vital Sign - Last 24 Hours 12/27/18 12/27/18 12/27/18 12/27/18 11:00 11:30 12:50 14:00 Temp 97.5 97.5 Pulse 60 60 60 Resp 16 B/P (MAP) 143/66 (91) 153/69 (97) 168/58 (94) Pulse Ox 99 99 99 O2 Delivery Room Air Nasal Cannula Room Air Room Air 12/27/18 12/27/18 12/27/18 12/27/18 15:00 17:47 19:57 20:20 Temp 97.5 97.6 97.5 97.6 Pulse 60 65 60 Resp 16 16 B/P (MAP) 166/62 (96) 158/66 (96) Pulse Ox 98 99 O2 Delivery Room Air Room Air Room Air 12/27/18 12/28/18 12/28/18 12/28/18 23:50 03:13 07:15 07:42 Temp 97.6 97.6 97.8 97.6 97.6 97.8 Pulse 60 60 60 Resp 16 16 18 B/P (MAP) 131/56 (81) 135/50 (78) 153/65 (94) Pulse Ox 97 97 97 O2 Delivery Room Air Room Air Room Air Room Air 12/28/18 08:58 Pulse 60 B/P (MAP) 153/65 Intake and Output 12/27/18 12/27/18 12/28/18 15:00 23:00 07:00 Intake Total 240 ml 1100 ml Output Total 875 ml Balance 240 ml 225 ml LINA FRITZ MD December 28, 2018 10:43
[2018-12-28] MEDS: ASPIRIN 325 MG TABLET PO SCH (14:42)
--- NOTE | 2018-12-28 14:58 | PDOC ---
PROGRESS NOTES Assessment Assessment Recurrent near-syncopal spells. Chest pain. HTN HLD. Renal disease. Pacemaker placement. Hearing loss. RECOMMENDATIONS/PLAN: FU CA US results. Consulted Cardiology. Treat medical diseases. OT/PT. Discussed with his again at bedside on 12/28/18. HISTORY OF THE PRESENT ILLNESS: This is a 73-y-old male patient who was admitted with complaints of chest pain and dizziness. He was gardening and was noticed by his that his endurance has decreased which is quite opposite than the endurance he displayed while he was bowling for an hour without any problem when suddenly he felt flushed, had midchest tightness with shoulder discomfort and mildly diaphoretic but no nausea. No SOA. This lasted about 1-2 minutes. He sat down and got better. He started bowling again for round 2 and started having symptoms again 10 minutes later. This did not recur again. He stated he had frequent near syncopal spells about 3 years ago and he had to find place to sit right away and his syncopal symptoms can be resolved. He eventually had pacemaker placement about 2 years and he had not had syncopal spells in the past 2 years until now. No seizures. No focalized sensory or motor deficits. PAST MEDICAL HISTORY Cardiovascular: HTN, Hyperlipidemia Heme/Onc: Anemia NOS, Other (DVT to arm?) Musculoskeletal: Osteoarthritis Renal/: Chronic renal insuff (4), Benign prostatic enlarg., Other (alports syndrome) PAST SURGICAL HISTORY Pacemaker, Cataract Removal, Hernia Repair (right inguinal), Tonsillectomy, Other (rectal polypectomy) FAMILY HISTORY Heart Disease ALLERGIES Coded Allergies: Influenza Virus Vaccines (Verified Allergy, Intermediate, GUILLAIN BARRE SYMPTOMS, 04/16/18) diphenhydramine (Verified Adverse Reaction, Mild, CHANGE IN PERSONALITY, 04/16/18) CHANGE IN PERSONALITY SOCIAL HISTORY Smoke: Quit ALCOHOL: occasionally Drugs: None Lives: with his . REVIEW OF SYSTEMS: Constitutional: No malnutrition, weight loss, cachexia. Head: No traumatic brain or head injury. Skin: No edema, or rash. Ear: No infection. Eyes: No vision loss or color blindness. Nose: No bleeding or purulent discharges. Hearing: Hearing loss. Neck: No injury. Cardiac: CAD, s/p Pacemaker Placement, HTN, HLD. Pulmonary: No COPD. GI: No GI ulcer, GI bleeding. Urinary/genital: UTI. Endocrinologic: Diabetes Mellitus. Skeletomuscular: No muscular atrophy. Neurological: see HP. Psychiatric: Denies drug use/abuse. Otherwise, not -mnboj review of systems. PHYSICAL EXAMINATION: General appearance is in subacute distress. HEENT: Normocephalic and nontraumatic. Eyes, nose, ears, and throat are unremarkable. Neck is supple. No lymphadenopathy. No crepitus. Cardiovascular: S1, S2, regular rate and rhythm. Pulmonary: Clear to auscultation bilaterally. Abdomen: Bowel sounds are positive. Abdomen is soft, nontender, and nondistended. Extremities: No rash, lesions, or edema. No restriction of range of motion NEUROLOGICAL EXAMINATION: Alert Oriented to time, place and person. PERRL. EOMI. CN: no focal findings. Muscle tone: within normal. Muscle strength: 5- DTR: 2- Plantar reflex: Flexor response bilaterally Gait: not examined in bed. Sensory exam: no abnormal findings. No cerebellar signs elicited. F-T-N test accurate. Objective Objective Vital Signs Date Time Temp Pulse Resp B/P (MAP) Pulse Ox O2 Delivery O2 Flow Rate FiO2 12/28/18 11:29 60 136/70 (92) 12/28/18 11:23 97.7 14 98 Room Air 97.7 Intake and Output 12/28/18 07:00 Intake Total 1340 ml Output Total 875 ml Balance 465 ml Intake Oral 440 ml IV Total 900 ml Output Urine Total 875 ml # Voids 2 Vitals Signs Vitals VS - Last 72 Hours, by Label Date Time Temp Pulse Resp B/P (MAP) Pulse Ox O2 Delivery O2 Flow Rate FiO2 12/28/18 11:29 60 136/70 (92) 12/28/18 11:26 60 146/69 (94) 12/28/18 11:23 97.7 60 14 140/66 (90) 98 Room Air 97.7 12/28/18 08:58 60 153/65 12/28/18 07:42 Room Air 12/28/18 07:15 97.8 60 18 153/65 (94) 97 Room Air 97.8 12/28/18 03:13 97.6 60 16 135/50 (78) 97 Room Air 97.6 12/27/18 23:50 97.6 60 16 131/56 (81) 97 Room Air 97.6 12/27/18 20:20 Room Air 12/27/18 19:57 97.6 60 16 158/66 (96) 99 Room Air 97.6 12/27/18 17:47 65 12/27/18 15:00 97.5 60 16 166/62 (96) 98 Room Air 97.5 12/27/18 14:00 Room Air 12/27/18 12:50 97.5 60 16 168/58 (94) 99 Room Air 97.5 12/27/18 11:30 60 153/69 (97) 99 Nasal Cannula 12/27/18 11:00 60 143/66 (91) 99 Room Air 12/27/18 10:30 60 150/72 (98) 99 Room Air 12/27/18 10:07 97.8 60 18 173/80 (111) 100 Room Air 97.8 Laboratory Laboratory Laboratory Tests Test 12/27/18 16:20 12/27/18 17:55 12/28/18 03:30 Urine Color Yellow Urine Clarity Clear Urine pH 5.5 Urine Specific [place] 1.015 Urine Protein >=300 mg/dL (NEG-TRACE) Urine Glucose (UA) Negative mg/dL (NEG) Urine Ketones (Stick) Negative mg/dL (NEG) Urine Blood Negative (NEG) Urine Nitrite Negative (NEG) Urine Bilirubin Negative (NEG) Urine Urobilinogen Dipstick 0.2 mg/dL (0.2 mg/dL) Urine Leukocyte Esterase Negative (NEG) Urine RBC 0 /HPF (0-2) Urine WBC Occ /HPF (0-4) Urine Squamous Epithelial Cells Occ /LPF Urine Bacteria 0 /HPF (0-FEW) Urine Opiates Screen Neg (NEG) Urine Methadone Screen Neg (NEG) Urine Barbiturates Neg (NEG) Urine Phencyclidine Screen Neg (NEG) Urine Amphetamine/Methamphetamine Neg (NEG) Urine Benzodiazepines Screen Neg (NEG) Urine Cocaine Screen Neg (NEG) Urine Cannabinoids Screen Neg (NEG) Urine Ethyl Alcohol Neg (NEG) Troponin I Quantitative < 0.017 ng/mL (0.000-0.055) White Blood Count 5.8 x10^3/uL (4.0-11.0) Red Blood Count 2.67 x10^6/uL (4.30-5.70) Hemoglobin 8.8 g/dL (13.0-17.5) Hematocrit 26.2 % (39.0-53.0) Mean Corpuscular Volume 98 fL (79-100) Mean Corpuscular Hemoglobin 33 pg (25-35) Mean Corpuscular Hemoglobin Concent 34 g/dL (31-37) Red Cell Distribution Width 13.1 % (11.5-14.5) Platelet Count 182 x10^3/uL (140-400) Neutrophils (%) (Auto) 55 % (31-73) Lymphocytes (%) (Auto) 28 % (24-48) Monocytes (%) (Auto) 11 % (0-9) Eosinophils (%) (Auto) 6 % (0-3) Basophils (%) (Auto) 1 % (0-3) Neutrophils # (Auto) 3.2 x10^3uL (1.8-7.7) Lymphocytes # (Auto) 1.6 x10^3/uL (1.0-4.8) Monocytes # (Auto) 0.6 x10^3/uL (0.0-1.1) Eosinophils # (Auto) 0.4 x10^3/uL (0.0-0.7) Basophils # (Auto) 0.0 x10^3/uL (0.0-0.2) Sodium Level 143 mmol/L (136-145) Potassium Level 3.9 mmol/L (3.5-5.1) Chloride Level 110 mmol/L (98-107) Carbon Dioxide Level 21 mmol/L (21-32) Anion Gap 12 (6-14) Blood Urea Nitrogen 50 mg/dL (8-26) Creatinine 2.8 mg/dL (0.7-1.3) Estimated GFR (Cockcroft-Gault) 22.3 Glucose Level 91 mg/dL (70-99) Calcium Level 8.3 mg/dL (8.5-10.1) Magnesium Level 1.6 mg/dL (1.8-2.4) Medication Medications Current Medications Aspirin (Ghislaine Aspirin) 325 mg DAILYWBKFT PO Last administered on 12/28/18at 14:42; Start 12/28/18 at 12:00 Atorvastatin Calcium (Lipitor) 40 mg QHS PO Last administered on 12/27/18at 21:10; Start 12/27/18 at 21:00 Calcium/Vitamin D (Oscal D 500mg/ 200uts) 1 tab DAILY PO Last administered on 12/28/18at 08:58; Start 12/28/18 at 09:00 Carvedilol (Coreg) 12.5 mg BIDWMEALS PO Last administered on 12/28/18at 08:58; Start 12/27/18 at 17:00 Cyanocobalamin (Vitamin B-12) 1,000 mcg DAILY PO Last administered on 12/28/18at 08:58; Start 12/28/18 at 09:00 Ferrous Sulfate (Feosol) 325 mg QODAY PO ; Start 12/29/18 at 09:00 Fish Oil (Fish Oil) 1,000 mg DAILY PO Last administered on 12/28/18at 08:58; Start 12/28/18 at 09:00 Lisinopril (Prinivil) 60 mg DAILY PO ; Start 12/28/18 at 09:00; Stop 12/28/18 at 09:00; Status DC Pantoprazole Sodium (Protonix) 40 mg QHS PO Last administered on 12/27/18at 21:10; Start 12/27/18 at 21:00 Sodium Chloride 1,000 ml @ 75 mls/hr 1X ONCE IV Last administered on 12/27/18at 17:47; Start 12/27/18 at 16:00; Stop 12/28/18 at 05:19; Status DC Sodium Chloride 1,000 ml @ 75 mls/hr [id number] IV ; Start 12/27/18 at 18:00; Stop 12/28/18 at 13:01; Status DC Comment Review of Relevant I have reviewed the following items nancy (where applicable) has been applied. OLINDA IRENE MD December 28, 2018 14:58
[2018-12-28] MEDS: LISINOPRIL 20 MG TABLET PO SCH (17:56)
--- NOTE | 2018-12-28 18:46 | RAD ---
Clinical Indications: Presyncope. Exam : Carotid Duplex with Grayscale Ultrasound and Spectral and Color Doppler Analysis: PQRS Compliance Statement - Stenosis calculations for CT, MR and conventional angiography are based upon measurement of the distal ICA diameter in accordance with the NASCET methodology. Stenosis calculations for carotid ultrasound studies are derived from validated velocity criteria which are known to correlate with the NASCET methodology. Comparison study: None available. Findings: The common, internal and external carotid arteries were examined by grayscale, color and spectral Doppler ultrasound. Mild atherosclerotic calcifications identified in the bilateral carotid bulbs and the internal carotid arteries. Flow in both vertebral arteries was antegrade and normal. The following are the velocities and ratios in the carotid arteries on both sides: RIGHT ICA PV: 81cm/sec RIGHT CCA PV: 95cm/sec RIGHT ICA ED: 26cm/sec RIGHT IC/CCPV: 0.7 RIGHT VERTEBRAL: antegrade flow RIGHT % STENOSIS: Less than 50 percent LEFT ICA PV: 96cm/sec LEFT CCA PV: 101cm/sec LEFT ICA ED: 23cm/sec LEFT IC/CCPV: 0.9 LEFT VERTEBRAL: antegrade flow LEFT % STENOSIS: Less than 50 percent <50% ICA Stenosis: PSV < 125cm/s (EDV < 40cm/s; SVR < 2.0) 50-69% ICA Stenosis: PSV < 125-229cm/s (EDV 40-99cm/s; SVR 2.0-3.9) >70% ICA Stenosis: PSV > 230cm/s (EDV >100cm/s; SVR >4.0) Impression: No evidence of hemodynamically significant stenosis. Electronically signed by: Timoteo Turcios MD (12/28/2018 6:43 PM) [facility]
[2018-12-28] MEDS: ATORVASTATIN CALCIUM 40 MG TABLET. PO SCH (21:13)
[2018-12-28] MEDS: PANTOPRAZOLE 40 MG TABLET.DR. PO SCH (21:13)
--- NOTE | 2018-12-29 01:25 | CONS ---
DATE OF CONSULTATION: NEPHROLOGY CONSULTATION REASON FOR CONSULTATION: Renal failure. HISTORY OF PRESENT ILLNESS: A 73-year-old gentleman with history of hypertension and proteinuria. The patient has known chronic kidney disease stage [address] and is followed [address] Dr[address] Camara of our practice. The records reveal possibility of Alport syndrome. The patient is currently admitted with chest pain and dizziness. Cardiac evaluation is unremarkable. Carotid ultrasound is pending at this time. The patient is feeling better. PAST MEDICAL HISTORY: Hypertension; chronic kidney disease stage 4, possibly Alport syndrome; hyperlipidemia; anemia of chronic kidney disease; degenerative arthritis; pacemaker placement; cataract extractions; right inguinal hernia repair; tonsillectomy and rectal polypectomy. ALLERGIES: INFLUENZA VIRUS AND DIPHENHYDRAMINE. MEDICATIONS: Reviewed per medication list. FAMILY HISTORY: Noncontributory for renal disease. SOCIAL HISTORY: The patient is and resides with his . No longer a smoker, occasional alcohol use. REVIEW OF SYSTEMS: No headaches, sinus problem, nasal drainage, epistaxis or change in vision or hearing. No difficulty swallowing. No fever, chills, cough, sputum production or hemoptysis. No chest pain, shortness of breath, PND, orthopnea, dyspnea on exertion. No abdominal pain. No nausea, vomiting, diarrhea, seizures or malignancies. PHYSICAL EXAMINATION: GENERAL APPEARANCE: The patient awake, conversant and appropriate. HEENT: Clear. NECK: No increased JVD. No thyromegaly, mass or adenopathy. LUNGS: Clear. CARDIAC: Without S3 or rub. ABDOMEN: Soft, nontender. No bruits. EXTREMITIES: Without edema. NEUROLOGIC: Nonfocal, localizing. PSYCHIATRIC: Good attention to detail, appropriate affect. LABORATORY DATA: Sodium 143, potassium 3.9, chloride 110, CO2 of 21, BUN 50 and creatinine 2.8 and GFR is 22, improved from 18.3 on presentation. Hemoglobin 8.8, hematocrit 26%. Urinalysis, specific gravity 1.015, protein greater than 300 mg percent. IMPRESSION: Chronic kidney disease stage 4, secondary to Alport syndrome. He appears to have nephrotic-range proteinuria and has reduced GFR as well as reduced auditory acuity. This will all be consistent with Alport syndrome. RECOMMENDATIONS: 1. Cardiology evaluation apparently complete. 2. Neurology evaluation is complete, pending results of carotid artery Dopplers. 3. Acceptable discharge from renal standpoint at any time. The patient instructed to follow up with Dr. Hoa butler routine. JACKELYN TINSLEY MD DR: OZ/marcela JOB#: [id number] / [id number]
[2018-12-29 03:36] VITALS: BP 138/67
[2018-12-29 05:03] LABS: BASO % 0 % (0-3); EOS # 0.4 x10^3/uL (0.0-0.7); EOS % 6 % (0-3); HEMATOCRIT 27.5 % (39.0-53.0); HEMOGLOBIN 9.4 g/dL (13.0-17.5); LYMPH # 1.5 x10^3/uL (1.0-4.8); LYMPH % 24 % (24-48); MEAN CORPUSCULAR HEMOGLOBIN 33 pg (25-35); MEAN CORPUSCULAR HGB CONC 34 g/dL (31-37); MEAN CORPUSCULAR VOLUME 98 fL (79-100); MONO # 0.7 x10^3/uL (0.0-1.1); MONO % 12 % (0-9); NEUT # 3.6 x10^3uL (1.8-7.7); NEUT % 58 % (31-73); PLATELET COUNT 208 x10^3/uL (140-400); RED BLOOD COUNT 2.81 x10^6/uL (4.30-5.70); RED CELL DISTRIBUTION WIDTH 13.2 % (11.5-14.5); WHITE BLOOD COUNT 6.3 x10^3/uL (4.0-11.0)
[2018-12-29 05:53] LABS: ALBUMIN 2.5 g/dL (3.4-5.0); CALCIUM 8.4 mg/dL (8.5-10.1); CREATININE 3.2 mg/dL (0.7-1.3); GFR 19.1; PHOSPHORUS 3.5 mg/dL (2.6-4.7); POTASSIUM 4.5 mmol/L (3.5-5.1)
[2018-12-29 07:00] VITALS: BP 158/73
[2018-12-29] MEDS: CALCIUM CARB/VIT D3 500/200 TABLET. PO SCH (08:20)
[2018-12-29] MEDS: CYANOCOBALAMIN (VITAMIN B-12) 1,000 MCG TABLET. PO SCH (08:20)
[2018-12-29] MEDS: ASPIRIN 325 MG TABLET PO SCH (08:20)
[2018-12-29] MEDS: OMEGA-3 FATTY ACIDS/FISH OIL 1,000 MG CAPSULE. PO SCH (08:20)
[2018-12-29] MEDS: CARVEDILOL 12.5 MG TABLET. PO SCH (08:21)
[2018-12-29] MEDS: LISINOPRIL 20 MG TABLET PO SCH (08:22)
[2018-12-29 08:53] VITALS: BP 158/73
[2018-12-29] MEDS ORDERED: FERROUS SULFATE 325 MG TABLET. PO SCH (09:00)
--- NOTE | 2018-12-29 09:16 | PDOC ---
PROGRESS NOTES History of Present Illness History of Present Illness VTE Prophylaxis Ordered VTE Prophylaxis Devices: Yes VTE Pharmacological Prophylaxi: Yes Assessment/Plan Assessment/Plan impression 1. chest discomfort 2. exercise intolerance, may be angina equivalence 3. hyperlipidemia 4. hypertension 5, ckd 6. renal failure CR 3.2 UP Chronic kidney disease stage 4, secondary to [place] syndrome. He appears to have nephrotic-range proteinuria plan admit serial troponin i cvc bed home meds TTE, TSH, carotid dopplers. hold home lisinopril, IV hydrate x1 L Interrogate pacemaker Orthostatic bp ASA, Mg replaced. cardiology consult dvt prophylaxis nephrology consult ok with d/c see them next week, see cardiology next week for stress test soon 34 min pt exam, chart review d/c planning Past Medical History Past Medical History: Anemia, Arrhythmia, High Cholesterol, Hypertension, Renal Disease, Other Additional Past Medical Histor: WET MAC D Past Surgical History: Pacemaker, Other Additional Past Surgical Histo: HERNIA Alcohol Use: Occasionally Drug Use: None Vitals Vitals Vital Signs Date Time Temp Pulse Resp B/P (MAP) Pulse Ox O2 Delivery O2 Flow Rate FiO2 12/29/18 08:53 97.4 60 12 158/73 (101) 100 Room Air 97.4 Physical Exam General: Alert, Oriented X3, Cooperative, No acute distress Heart: Regular rate (atrial paced), Normal S1, Normal S2, No murmurs Lungs: Clear Abdomen: Normal bowel sounds, Soft, No tenderness Extremities: No clubbing, No cyanosis, No edema Skin: No significant lesion Labs LABS Clinical Indications: Presyncope. Exam : Carotid Duplex with Grayscale Ultrasound and Spectral and Color Doppler Analysis: PQRS Compliance Statement - Stenosis calculations for CT, MR and conventional angiography are based upon measurement of the distal ICA diameter in accordance with the NASCET methodology. Stenosis calculations for carotid ultrasound studies are derived from validated velocity criteria which are known to correlate with the NASCET methodology. Comparison study: None available. Findings: The common, internal and external carotid arteries were examined by grayscale, color and spectral Doppler ultrasound. Mild atherosclerotic calcifications identified in the bilateral carotid bulbs and the internal carotid arteries. Flow in both vertebral arteries was antegrade and normal. The following are the velocities and ratios in the carotid arteries on both sides: RIGHT ICA PV: 81cm/sec RIGHT CCA PV: 95cm/sec RIGHT ICA ED: 26cm/sec RIGHT IC/CCPV: 0.7 RIGHT VERTEBRAL: antegrade flow RIGHT % STENOSIS: Less than 50 percent LEFT ICA PV: 96cm/sec LEFT CCA PV: 101cm/sec LEFT ICA ED: 23cm/sec LEFT IC/CCPV: 0.9 LEFT VERTEBRAL: antegrade flow LEFT % STENOSIS: Less than 50 percent <50% ICA Stenosis: PSV < 125cm/s (EDV < 40cm/s; SVR < 2.0) 50-69% ICA Stenosis: PSV < 125-229cm/s (EDV 40-99cm/s; SVR 2.0-3.9) >70% ICA Stenosis: PSV > 230cm/s (EDV >100cm/s; SVR >4.0) Impression: No evidence of hemodynamically significant stenosis. Electronically signed by: Timoteo Turcios MD (12/28/2018 6:43 PM) [facility] Laboratory Tests Test 12/29/18 04:00 White Blood Count 6.3 x10^3/uL (4.0-11.0) Red Blood Count 2.81 x10^6/uL (4.30-5.70) Hemoglobin 9.4 g/dL (13.0-17.5) Hematocrit 27.5 % (39.0-53.0) Mean Corpuscular Volume 98 fL (79-100) Mean Corpuscular Hemoglobin 33 pg (25-35) Mean Corpuscular Hemoglobin Concent 34 g/dL (31-37) Red Cell Distribution Width 13.2 % (11.5-14.5) Platelet Count 208 x10^3/uL (140-400) Neutrophils (%) (Auto) 58 % (31-73) Lymphocytes (%) (Auto) 24 % (24-48) Monocytes (%) (Auto) 12 % (0-9) Eosinophils (%) (Auto) 6 % (0-3) Basophils (%) (Auto) 0 % (0-3) Neutrophils # (Auto) 3.6 x10^3uL (1.8-7.7) Lymphocytes # (Auto) 1.5 x10^3/uL (1.0-4.8) Monocytes # (Auto) 0.7 x10^3/uL (0.0-1.1) Eosinophils # (Auto) 0.4 x10^3/uL (0.0-0.7) Basophils # (Auto) 0.0 x10^3/uL (0.0-0.2) Sodium Level 143 mmol/L (136-145) Potassium Level 4.5 mmol/L (3.5-5.1) Chloride Level 111 mmol/L (98-107) Carbon Dioxide Level 23 mmol/L (21-32) Anion Gap 9 (6-14) Blood Urea Nitrogen 50 mg/dL (8-26) Creatinine 3.2 mg/dL (0.7-1.3) Estimated GFR (Cockcroft-Gault) 19.1 Glucose Level 94 mg/dL (70-99) Calcium Level 8.4 mg/dL (8.5-10.1) Phosphorus Level 3.5 mg/dL (2.6-4.7) Albumin 2.5 g/dL (3.4-5.0) Assessment and Plan Assessmemt and Plan Problems Medical Problems: (1) Acute chest pain Status: Acute (2) Chronic renal insufficiency Status: Acute (3) Hyperchloremia Status: Acute (4) Hypernatremia Status: Acute Comment Review of Relevant I have reviewed the following items nancy (where applicable) has been applied. Labs Laboratory Tests Test 12/27/18 09:48 12/27/18 13:55 12/27/18 16:20 12/27/18 17:55 White Blood Count 6.1 x10^3/uL (4.0-11.0) Red Blood Count 3.04 x10^6/uL (4.30-5.70) Hemoglobin 10.0 g/dL (13.0-17.5) Hematocrit 30.1 % (39.0-53.0) Mean Corpuscular Volume 99 fL (79-100) Mean Corpuscular Hemoglobin 33 pg (25-35) Mean Corpuscular Hemoglobin Concent 33 g/dL (31-37) Red Cell Distribution Width 13.3 % (11.5-14.5) Platelet Count 215 x10^3/uL (140-400) Neutrophils (%) (Auto) 60 % (31-73) Lymphocytes (%) (Auto) 23 % (24-48) Monocytes (%) (Auto) 11 % (0-9) Eosinophils (%) (Auto) 7 % (0-3) Basophils (%) (Auto) 1 % (0-3) Neutrophils # (Auto) 3.7 x10^3uL (1.8-7.7) Lymphocytes # (Auto) 1.4 x10^3/uL (1.0-4.8) Monocytes # (Auto) 0.7 x10^3/uL (0.0-1.1) Eosinophils # (Auto) 0.4 x10^3/uL (0.0-0.7) Basophils # (Auto) 0.0 x10^3/uL (0.0-0.2) Prothrombin Time 13.1 SEC (11.7-14.0) Prothromb Time International Ratio 1.0 (0.8-1.1) Sodium Level 146 mmol/L (136-145) Potassium Level 4.3 mmol/L (3.5-5.1) Chloride Level 112 mmol/L (98-107) Carbon Dioxide Level 21 mmol/L (21-32) Anion Gap 13 (6-14) Blood Urea Nitrogen 54 mg/dL (8-26) Creatinine 3.3 mg/dL (0.7-1.3) Estimated GFR (Cockcroft-Gault) 18.4 BUN/Creatinine Ratio 16 (6-20) Glucose Level 109 mg/dL (70-99) Calcium Level 8.7 mg/dL (8.5-10.1) Magnesium Level 1.6 mg/dL (1.8-2.4) Total Bilirubin 0.4 mg/dL (0.2-1.0) Aspartate Amino Transf (AST/SGOT) 26 U/L (15-37) Alanine Aminotransferase (ALT/SGPT) 24 U/L (16-63) Alkaline Phosphatase 80 U/L (46-116) Creatine Kinase 131 U/L (39-308) Creatine Kinase MB (Mass) 1.6 ng/mL (0.0-3.6) Creatine Kinase MB Relative Index 1.2 % (0-4) Troponin I Quantitative < 0.017 ng/mL (0.000-0.055) < 0.017 ng/mL (0.000-0.055) < 0.017 ng/mL (0.000-0.055) OO-Ybk-[id number]-Type Natriuretic Peptide 902 pg/mL (0-124) Total Protein 5.9 g/dL (6.4-8.2) Albumin 2.9 g/dL (3.4-5.0) Albumin/Globulin Ratio 1.0 (1.0-1.7) Triglycerides Level 124 mg/dL (0-150) Cholesterol Level 152 mg/dL (0-200) LDL Cholesterol, Calculated 94 mg/dL (0-100) VLDL Cholesterol, Calculated 25 mg/dL (0-40) Non-HDL Cholesterol Calculated 119 mg/dL (0-129) HDL Cholesterol 33 mg/dL (40-60) Cholesterol/HDL Ratio 4.6 Lipase 232 U/L (73-393) Thyroid Stimulating Hormone (TSH) 1.211 uIU/mL (0.358-3.74) Urine Color Yellow Urine Clarity Clear Urine pH 5.5 Urine Specific [place] 1.015 Urine Protein >=300 mg/dL (NEG-TRACE) Urine Glucose (UA) Negative mg/dL (NEG) Urine Ketones (Stick) Negative mg/dL (NEG) Urine Blood Negative (NEG) Urine Nitrite Negative (NEG) Urine Bilirubin Negative (NEG) Urine Urobilinogen Dipstick 0.2 mg/dL (0.2 mg/dL) Urine Leukocyte Esterase Negative (NEG) Urine RBC 0 /HPF (0-2) Urine WBC Occ /HPF (0-4) Urine Squamous Epithelial Cells Occ /LPF Urine Bacteria 0 /HPF (0-FEW) Urine Opiates Screen Neg (NEG) Urine Methadone Screen Neg (NEG) Urine Barbiturates Neg (NEG) Urine Phencyclidine Screen Neg (NEG) Urine Amphetamine/Methamphetamine Neg (NEG) Urine Benzodiazepines Screen Neg (NEG) Urine Cocaine Screen Neg (NEG) Urine Cannabinoids Screen Neg (NEG) Urine Ethyl Alcohol Neg (NEG) Test 12/28/18 03:30 12/29/18 04:00 White Blood Count 5.8 x10^3/uL (4.0-11.0) 6.3 x10^3/uL (4.0-11.0) Red Blood Count 2.67 x10^6/uL (4.30-5.70) 2.81 x10^6/uL (4.30-5.70) Hemoglobin 8.8 g/dL (13.0-17.5) 9.4 g/dL (13.0-17.5) Hematocrit 26.2 % (39.0-53.0) 27.5 % (39.0-53.0) Mean Corpuscular Volume 98 fL (79-100) 98 fL (79-100) Mean Corpuscular Hemoglobin 33 pg (25-35) 33 pg (25-35) Mean Corpuscular Hemoglobin Concent 34 g/dL (31-37) 34 g/dL (31-37) Red Cell Distribution Width 13.1 % (11.5-14.5) 13.2 % (11.5-14.5) Platelet Count 182 x10^3/uL (140-400) 208 x10^3/uL (140-400) Neutrophils (%) (Auto) 55 % (31-73) 58 % (31-73) Lymphocytes (%) (Auto) 28 % (24-48) 24 % (24-48) Monocytes (%) (Auto) 11 % (0-9) 12 % (0-9) Eosinophils (%) (Auto) 6 % (0-3) 6 % (0-3) Basophils (%) (Auto) 1 % (0-3) 0 % (0-3) Neutrophils # (Auto) 3.2 x10^3uL (1.8-7.7) 3.6 x10^3uL (1.8-7.7) Lymphocytes # (Auto) 1.6 x10^3/uL (1.0-4.8) 1.5 x10^3/uL (1.0-4.8) Monocytes # (Auto) 0.6 x10^3/uL (0.0-1.1) 0.7 x10^3/uL (0.0-1.1) Eosinophils # (Auto) 0.4 x10^3/uL (0.0-0.7) 0.4 x10^3/uL (0.0-0.7) Basophils # (Auto) 0.0 x10^3/uL (0.0-0.2) 0.0 x10^3/uL (0.0-0.2) Sodium Level 143 mmol/L (136-145) 143 mmol/L (136-145) Potassium Level 3.9 mmol/L (3.5-5.1) 4.5 mmol/L (3.5-5.1) Chloride Level 110 mmol/L (98-107) 111 mmol/L (98-107) Carbon Dioxide Level 21 mmol/L (21-32) 23 mmol/L (21-32) Anion Gap 12 (6-14) 9 (6-14) Blood Urea Nitrogen 50 mg/dL (8-26) 50 mg/dL (8-26) Creatinine 2.8 mg/dL (0.7-1.3) 3.2 mg/dL (0.7-1.3) Estimated GFR (Cockcroft-Gault) 22.3 19.1 Glucose Level 91 mg/dL (70-99) 94 mg/dL (70-99) Calcium Level 8.3 mg/dL (8.5-10.1) 8.4 mg/dL (8.5-10.1) Magnesium Level 1.6 mg/dL (1.8-2.4) Phosphorus Level 3.5 mg/dL (2.6-4.7) Albumin 2.5 g/dL (3.4-5.0) Laboratory Tests Test 12/29/18 04:00 White Blood Count 6.3 x10^3/uL (4.0-11.0) Red Blood Count 2.81 x10^6/uL (4.30-5.70) Hemoglobin 9.4 g/dL (13.0-17.5) Hematocrit 27.5 % (39.0-53.0) Mean Corpuscular Volume 98 fL (79-100) Mean Corpuscular Hemoglobin 33 pg (25-35) Mean Corpuscular Hemoglobin Concent 34 g/dL (31-37) Red Cell Distribution Width 13.2 % (11.5-14.5) Platelet Count 208 x10^3/uL (140-400) Neutrophils (%) (Auto) 58 % (31-73) Lymphocytes (%) (Auto) 24 % (24-48) Monocytes (%) (Auto) 12 % (0-9) Eosinophils (%) (Auto) 6 % (0-3) Basophils (%) (Auto) 0 % (0-3) Neutrophils # (Auto) 3.6 x10^3uL (1.8-7.7) Lymphocytes # (Auto) 1.5 x10^3/uL (1.0-4.8) Monocytes # (Auto) 0.7 x10^3/uL (0.0-1.1) Eosinophils # (Auto) 0.4 x10^3/uL (0.0-0.7) Basophils # (Auto) 0.0 x10^3/uL (0.0-0.2) Sodium Level 143 mmol/L (136-145) Potassium Level 4.5 mmol/L (3.5-5.1) Chloride Level 111 mmol/L (98-107) Carbon Dioxide Level 23 mmol/L (21-32) Anion Gap 9 (6-14) Blood Urea Nitrogen 50 mg/dL (8-26) Creatinine 3.2 mg/dL (0.7-1.3) Estimated GFR (Cockcroft-Gault) 19.1 Glucose Level 94 mg/dL (70-99) Calcium Level 8.4 mg/dL (8.5-10.1) Phosphorus Level 3.5 mg/dL (2.6-4.7) Albumin 2.5 g/dL (3.4-5.0) Medications Current Medications Aspirin (Children'S Aspirin) 324 mg 1X ONCE PO Last administered on 12/27/18at 10:15; Start 12/27/18 at 10:00; Stop 12/27/18 at 10:01; Status DC Magnesium Oxide (Magnesium Oxide) 400 mg 1X ONCE PO Last administered on 12/27/18at 11:55; Start 12/27/18 at 11:45; Stop 12/27/18 at 11:46; Status DC Ringer's Solution 1,000 ml @ 75 mls/hr 1X ONCE IV ; Start 12/27/18 at 12:30; Stop 12/28/18 at 01:49; Status DC Sodium Chloride 1,000 ml @ 75 mls/hr 1X ONCE IV Last administered on 12/27/18at 17:47; Start 12/27/18 at 16:00; Stop 12/28/18 at 05:19; Status DC Atorvastatin Calcium (Lipitor) 40 mg QHS PO Last administered on 12/28/18at 21:13; Start 12/27/18 at 21:00 Carvedilol (Coreg) 12.5 mg BIDWMEALS PO Last administered on 12/29/18at 08:21; Start 12/27/18 at 17:00 Ferrous Sulfate (Feosol) 325 mg QODAY PO Last administered on 12/29/18 08:20; Start 12/29/18 at 09:00 Lisinopril (Prinivil) 60 mg DAILY PO ; Start 12/28/18 at 09:00; Stop 12/28/18 at 09:00; Status DC Calcium/Vitamin D (Oscal D 500mg/ 200uts) 1 tab DAILY PO Last administered on 12/29/18 08:20; Start 12/28/18 at 09:00 Fish Oil (Fish Oil) 1,000 mg DAILY PO Last administered on 12/29/18 08:20; Start 12/28/18 at 09:00 Pantoprazole Sodium (Protonix) 40 mg QHS PO Last administered on 12/28/18 21:13; Start 12/27/18 at 21:00 Cyanocobalamin (Vitamin B-12) 1,000 mcg DAILY PO Last administered on 12/29/18 08:20; Start 12/28/18 at 09:00 Sodium Chloride 1,000 ml @ 75 mls/hr [id number] IV ; Start 12/27/18 at 18:00; Stop 12/28/18 at 13:01; Status DC Aspirin (Ghislaine Aspirin) 325 mg [id number] PO Last administered on 12/29/18 08:20; Start 12/28/18 at 12:00 Lisinopril (Prinivil) 20 mg DAILY PO Last administered on 12/29/18 08:22; Start 12/28/18 at 18:00 Active Scripts Active Reported Protonix (Pantoprazole Sodium) 20 Mg Tablet.dr 40 Mg PO HS Calcium + D3 Er Tablet (Calcium Carb & Cit/Vitamin D3) 1 Each Tablet.er 1 Each PO DAILY Carvedilol (Carvedilol) 12.5 Mg Tablet 12.5 Mg PO BIDWMEALS Ferrous Sulfate 325 Mg Tablet 325 Mg PO QODAY Vitamin B-12 (Cyanocobalamin (Vitamin B-12)) 500 Mcg Tablet 500 Mcg PO Lisinopril 40 Mg Tablet 1.5 Tab PO DAILY Fish Oil Conc 1,000 mg Softgel (B[place]ant-3/Dha/Epa/Fish Oil) 1,000 Mg Capsule 1,000 Mg PO DAILY Atorvastatin Calcium 40 Mg Tablet 40 Mg PO QHS Vitals/I & O Vital Sign - Last 24 Hours 12/28/18 12/28/18 12/28/18 12/28/18 11:23 11:26 11:29 15:00 Temp 97.7 97.2 97.7 97.2 Pulse 60 60 60 60 Resp 14 16 B/P (MAP) 140/66 (90) 146/69 (94) 136/70 (92) 154/73 (100) Pulse Ox 98 O2 Delivery Room Air Room Air 12/28/18 12/28/18 12/28/18 12/28/18 16:52 19:59 20:10 23:57 Temp 97.9 97.7 97.9 97.7 Pulse 60 60 60 Resp 16 16 B/P (MAP) 154/73 134/61 (85) 123/59 (80) Pulse Ox 97 98 O2 Delivery Room Air Room Air Room Air 12/29/18 12/29/18 12/29/18 12/29/18 03:36 07:00 07:30 08:21 Temp 98.0 97.4 98.0 97.4 Pulse 63 60 60 Resp 17 12 B/P (MAP) 138/67 (90) 158/73 (101) 158/73 Pulse Ox 98 100 O2 Delivery Room Air Room Air Room Air 12/29/18 12/29/18 08:22 08:53 Temp 97.4 97.4 Pulse 60 60 Resp 12 B/P (MAP) 158/73 158/73 (101) Pulse Ox 100 O2 Delivery Room Air Intake and Output 12/28/18 12/28/18 12/29/18 14:59 22:59 06:59 Intake Total 180 ml 280 ml 400 ml Balance 180 ml 280 ml 400 ml GIOVANA LECHUGA MD December 29, 2018 09:16
[2018-12-29 11:00] VITALS: BP 158/65
--- NOTE | 2018-12-29 12:26 | PDOC3 ---
Discharge Summary Date of Admission: December 27, 2018 Date of Discharge: December 29, 2018 Follow-Up: 3-5 days Admitting Diagnosis comment: Assessment/Plan Assessment/Plan impression 1. chest discomfort 2. exercise intolerance, may be angina equivalence 3. hyperlipidemia 4. hypertension 5, ckd 6. renal failure CR 3.2 UP 7. Chronic kidney disease stage 4, secondary to Al[place] syndrome. He appears to have nephrotic-range proteinuria plan admit serial troponin i cvc bed home meds TTE, TSH, carotid dopplers. hold home lisinopril, IV hydrate x1 L Interrogate pacemaker Orthostatic bp ASA, Mg replaced. cardiology consult dvt prophylaxis nephrology consult ok with d/c see them next week, see cardiology next week for stress test soon 34 min pt exam, chart review d/c planning Past Medical History Past Medical History: Anemia, Arrhythmia, High Cholesterol, Hypertension, Renal Disease, Other Additional Past Medical Histor: WET MAC D Past Surgical History: Pacemaker, Other Additional Past Surgical Histo: HERNIA Alcohol Use: Occasionally Drug Use: None Vitals Vitals Vital Signs Date Time Temp Pulse Resp B/P (MAP) Pulse Ox O2 Delivery O2 Flow Rate FiO2 12/29/18 08:53 97.4 60 12 158/73 (101) 100 Room Air 97.4 Physical Exam General: Alert, Oriented X3, Cooperative, No acute distress Heart: Regular rate (atrial paced), Normal S1, Normal S2, No murmurs Lungs: Clear Abdomen: Normal bowel sounds, Soft, No tenderness Extremities: No clubbing, No cyanosis, No edema Skin: No significant lesion Labs LABS Clinical Indications: Presyncope. Exam : Carotid Duplex with Grayscale Ultrasound and Spectral and Color Doppler Analysis: PQRS Compliance Statement - Stenosis calculations for CT, MR and conventional angiography are based upon measurement of the distal ICA diameter in accordance with the NASCET methodology. Stenosis calculations for carotid ultrasound studies are derived from validated velocity criteria which are known to correlate with the NASCET methodology. Comparison study: None available. Findings: The common, internal and external carotid arteries were examined by grayscale, color and spectral Doppler ultrasound. Mild atherosclerotic calcifications identified in the bilateral carotid bulbs and the internal carotid arteries. Flow in both vertebral arteries was antegrade and normal. The following are the velocities and ratios in the carotid arteries on both sides: RIGHT ICA PV: 81cm/sec RIGHT CCA PV: 95cm/sec RIGHT ICA ED: 26cm/sec RIGHT IC/CCPV: 0.7 RIGHT VERTEBRAL: antegrade flow RIGHT % STENOSIS: Less than 50 percent LEFT ICA PV: 96cm/sec LEFT CCA PV: 101cm/sec LEFT ICA ED: 23cm/sec LEFT IC/CCPV: 0.9 LEFT VERTEBRAL: antegrade flow LEFT % STENOSIS: Less than 50 percent <50% ICA Stenosis: PSV < 125cm/s (EDV < 40cm/s; SVR < 2.0) 50-69% ICA Stenosis: PSV < 125-229cm/s (EDV 40-99cm/s; SVR 2.0-3.9) >70% ICA Stenosis: PSV > 230cm/s (EDV >100cm/s; SVR >4.0) Impression: No evidence of hemodynamically significant stenosis. FINAL DIAGNOSIS Problems Medical Problems: (1) Acute chest pain Status: Acute (2) Chronic renal insufficiency Status: Acute (3) Hyperchloremia Status: Acute (4) Hypernatremia Status: Acute Brief Hospital Course Mr. Steinberg is a 73 old [sex] who presented with [chest discomfort/ renal failure ] CONDITION AT DISCHARGE: Improved Discharge Medications Current Medications Aspirin (Children'S Aspirin) 324 mg 1X ONCE PO Last administered on 12/27/18at 10:15; Start 12/27/18 at 10:00; Stop 12/27/18 at 10:01; Status DC Magnesium Oxide (Magnesium Oxide) 400 mg 1X ONCE PO Last administered on 12/27/18at 11:55; Start 12/27/18 at 11:45; Stop 12/27/18 at 11:46; Status DC Ringer's Solution 1,000 ml @ 75 mls/hr 1X ONCE IV ; Start 12/27/18 at 12:30; Stop 12/28/18 at 01:49; Status DC Sodium Chloride 1,000 ml @ 75 mls/hr 1X ONCE IV Last administered on 12/27/18at 17:47; Start 12/27/18 at 16:00; Stop 12/28/18 at 05:19; Status DC Atorvastatin Calcium (Lipitor) 40 mg QHS PO Last administered on 12/28/18at 21:13; Start 12/27/18 at 21:00 Carvedilol (Coreg) 12.5 mg BIDWMEALS PO Last administered on 5/19/19at 08:21; Start 12/27/18 at 17:00 Ferrous Sulfate (Feosol) 325 mg QODAY PO Last administered on 12/29/18 08:20; Start 12/29/18 at 09:00 Lisinopril (Prinivil) 60 mg DAILY PO ; Start 12/28/18 at 09:00; Stop 12/28/18 at 09:00; Status DC Calcium/Vitamin D (Oscal D 500mg/ 200uts) 1 tab DAILY PO Last administered on 12/29/18 08:20; Start 12/28/18 at 09:00 Fish Oil (Fish Oil) 1,000 mg DAILY PO Last administered on 12/29/18 08:20; Start 12/28/18 at 09:00 Pantoprazole Sodium (Protonix) 40 mg QHS PO Last administered on 12/28/18at 21:13; Start 12/27/18 at 21:00 Cyanocobalamin (Vitamin B-12) 1,000 mcg DAILY PO Last administered on 12/29/18 08:20; Start 12/28/18 at 09:00 Sodium Chloride 1,000 ml @ 75 mls/hr [id number] IV ; Start 12/27/18 at 18:00; Stop 12/28/18 at 13:01; Status DC Aspirin (Ghislaine Aspirin) 325 mg [id number] PO Last administered on 12/29/18 08:20; Start 12/28/18 at 12:00 Lisinopril (Prinivil) 20 mg DAILY PO Last administered on 12/29/18 08:22; Start 12/28/18 at 18:00 Active Scripts Active Reported Protonix (Pantoprazole Sodium) 20 Mg Tablet.dr 40 Mg PO HS Calcium + D3 Er Tablet (Calcium Carb & Cit/Vitamin D3) 1 Each Tablet.er 1 Each PO DAILY Carvedilol (Carvedilol) 12.5 Mg Tablet 12.5 Mg PO BIDWMEALS Ferrous Sulfate 325 Mg Tablet 325 Mg PO QODAY Vitamin B-12 (Cyanocobalamin (Vitamin B-12)) 500 Mcg Tablet 500 Mcg PO Lisinopril 40 Mg Tablet 1.5 Tab PO DAILY Fish Oil Conc 1,000 mg Softgel (Fingal-3/Dha/Epa/Fish Oil) 1,000 Mg Capsule 1,000 Mg PO DAILY Atorvastatin Calcium 40 Mg Tablet 40 Mg PO QHS Vital Signs Vital Signs Date Time Temp Pulse Resp B/P (MAP) Pulse Ox O2 Delivery O2 Flow Rate FiO2 12/29/18 08:53 97.4 60 12 158/73 (101) 100 Room Air 97.4 Labs Laboratory Tests Test 12/27/18 13:55 12/27/18 16:20 12/27/18 17:55 12/28/18 03:30 Troponin I Quantitative < 0.017 ng/mL (0.000-0.055) < 0.017 ng/mL (0.000-0.055) Urine Color Yellow Urine Clarity Clear Urine pH 5.5 Urine Specific [place] 1.015 Urine Protein >=300 mg/dL (NEG-TRACE) Urine Glucose (UA) Negative mg/dL (NEG) Urine Ketones (Stick) Negative mg/dL (NEG) Urine Blood Negative (NEG) Urine Nitrite Negative (NEG) Urine Bilirubin Negative (NEG) Urine Urobilinogen Dipstick 0.2 mg/dL (0.2 mg/dL) Urine Leukocyte Esterase Negative (NEG) Urine RBC 0 /HPF (0-2) Urine WBC Occ /HPF (0-4) Urine Squamous Epithelial Cells Occ /LPF Urine Bacteria 0 /HPF (0-FEW) Urine Opiates Screen Neg (NEG) Urine Methadone Screen Neg (NEG) Urine Barbiturates Neg (NEG) Urine Phencyclidine Screen Neg (NEG) Urine Amphetamine/Methamphetamine Neg (NEG) Urine Benzodiazepines Screen Neg (NEG) Urine Cocaine Screen Neg (NEG) Urine Cannabinoids Screen Neg (NEG) Urine Ethyl Alcohol Neg (NEG) White Blood Count 5.8 x10^3/uL (4.0-11.0) Red Blood Count 2.67 x10^6/uL (4.30-5.70) Hemoglobin 8.8 g/dL (13.0-17.5) Hematocrit 26.2 % (39.0-53.0) Mean Corpuscular Volume 98 fL (79-100) Mean Corpuscular Hemoglobin 33 pg (25-35) Mean Corpuscular Hemoglobin Concent 34 g/dL (31-37) Red Cell Distribution Width 13.1 % (11.5-14.5) Platelet Count 182 x10^3/uL (140-400) Neutrophils (%) (Auto) 55 % (31-73) Lymphocytes (%) (Auto) 28 % (24-48) Monocytes (%) (Auto) 11 % (0-9) Eosinophils (%) (Auto) 6 % (0-3) Basophils (%) (Auto) 1 % (0-3) Neutrophils # (Auto) 3.2 x10^3uL (1.8-7.7) Lymphocytes # (Auto) 1.6 x10^3/uL (1.0-4.8) Monocytes # (Auto) 0.6 x10^3/uL (0.0-1.1) Eosinophils # (Auto) 0.4 x10^3/uL (0.0-0.7) Basophils # (Auto) 0.0 x10^3/uL (0.0-0.2) Sodium Level 143 mmol/L (136-145) Potassium Level 3.9 mmol/L (3.5-5.1) Chloride Level 110 mmol/L (98-107) Carbon Dioxide Level 21 mmol/L (21-32) Anion Gap 12 (6-14) Blood Urea Nitrogen 50 mg/dL (8-26) Creatinine 2.8 mg/dL (0.7-1.3) Estimated GFR (Cockcroft-Gault) 22.3 Glucose Level 91 mg/dL (70-99) Calcium Level 8.3 mg/dL (8.5-10.1) Magnesium Level 1.6 mg/dL (1.8-2.4) Test 12/29/18 04:00 White Blood Count 6.3 x10^3/uL (4.0-11.0) Red Blood Count 2.81 x10^6/uL (4.30-5.70) Hemoglobin 9.4 g/dL (13.0-17.5) Hematocrit 27.5 % (39.0-53.0) Mean Corpuscular Volume 98 fL (79-100) Mean Corpuscular Hemoglobin 33 pg (25-35) Mean Corpuscular Hemoglobin Concent 34 g/dL (31-37) Red Cell Distribution Width 13.2 % (11.5-14.5) Platelet Count 208 x10^3/uL (140-400) Neutrophils (%) (Auto) 58 % (31-73) Lymphocytes (%) (Auto) 24 % (24-48) Monocytes (%) (Auto) 12 % (0-9) Eosinophils (%) (Auto) 6 % (0-3) Basophils (%) (Auto) 0 % (0-3) Neutrophils # (Auto) 3.6 x10^3uL (1.8-7.7) Lymphocytes # (Auto) 1.5 x10^3/uL (1.0-4.8) Monocytes # (Auto) 0.7 x10^3/uL (0.0-1.1) Eosinophils # (Auto) 0.4 x10^3/uL (0.0-0.7) Basophils # (Auto) 0.0 x10^3/uL (0.0-0.2) Sodium Level 143 mmol/L (136-145) Potassium Level 4.5 mmol/L (3.5-5.1) Chloride Level 111 mmol/L (98-107) Carbon Dioxide Level 23 mmol/L (21-32) Anion Gap 9 (6-14) Blood Urea Nitrogen 50 mg/dL (8-26) Creatinine 3.2 mg/dL (0.7-1.3) Estimated GFR (Cockcroft-Gault) 19.1 Glucose Level 94 mg/dL (70-99) Calcium Level 8.4 mg/dL (8.5-10.1) Phosphorus Level 3.5 mg/dL (2.6-4.7) Albumin 2.5 g/dL (3.4-5.0) Laboratory Tests Test 12/29/18 04:00 White Blood Count 6.3 x10^3/uL (4.0-11.0) Red Blood Count 2.81 x10^6/uL (4.30-5.70) Hemoglobin 9.4 g/dL (13.0-17.5) Hematocrit 27.5 % (39.0-53.0) Mean Corpuscular Volume 98 fL (79-100) Mean Corpuscular Hemoglobin 33 pg (25-35) Mean Corpuscular Hemoglobin Concent 34 g/dL (31-37) Red Cell Distribution Width 13.2 % (11.5-14.5) Platelet Count 208 x10^3/uL (140-400) Neutrophils (%) (Auto) 58 % (31-73) Lymphocytes (%) (Auto) 24 % (24-48) Monocytes (%) (Auto) 12 % (0-9) Eosinophils (%) (Auto) 6 % (0-3) Basophils (%) (Auto) 0 % (0-3) Neutrophils # (Auto) 3.6 x10^3uL (1.8-7.7) Lymphocytes # (Auto) 1.5 x10^3/uL (1.0-4.8) Monocytes # (Auto) 0.7 x10^3/uL (0.0-1.1) Eosinophils # (Auto) 0.4 x10^3/uL (0.0-0.7) Basophils # (Auto) 0.0 x10^3/uL (0.0-0.2) Sodium Level 143 mmol/L (136-145) Potassium Level 4.5 mmol/L (3.5-5.1) Chloride Level 111 mmol/L (98-107) Carbon Dioxide Level 23 mmol/L (21-32) Anion Gap 9 (6-14) Blood Urea Nitrogen 50 mg/dL (8-26) Creatinine 3.2 mg/dL (0.7-1.3) Estimated GFR (Cockcroft-Gault) 19.1 Glucose Level 94 mg/dL (70-99) Calcium Level 8.4 mg/dL (8.5-10.1) Phosphorus Level 3.5 mg/dL (2.6-4.7) Albumin 2.5 g/dL (3.4-5.0) Allergies Allergies Coded Allergies Type Severity Reaction Last Updated Verified Influenza Virus Vaccines Allergy Intermediate GUILLAIN BARRE SYMPTOMS 04/16/18 Yes diphenhydramine Adverse Reaction Mild CHANGE IN PERSONALITY 04/16/18 Yes Disposition/Orders: D/C to Home Patient Instructions d/c planning 34 min GIOVANA LECHUGA MD December 29, 2018 12:26
[2018-12-29] MEDS ORDERED: LISI-130 PO (12:27)
--- NOTE | 2018-12-29 12:29 | DISCH ---
DISCHARGE INSTRUCTIONS Condition on Discharge Condition on Discharge: Stable Activity After Discharge Activity Instructions for Disc: Activity as tolerated, Other, see below Lifting Instructions after Dis: No heavy lifting, No pulling or pushing Exercise Instruction after Dis: Walk 10 min, 3 x per day Driving Instructions after Dis: Do not drive today, Other, see below Diet after Discharge Diet after Discharge: Renal Non-Dialysis, Regular, Low Sodium 2 gm Wound Incision Care Wound/Incision Care: Other, see below Checks after Discharge Checks after discharge: Check blood press - daily Contacting the after DC Call your doctor for: If your condition worsens Warfarin Follow-Up Warfarin Follow UP: see cardiology next week , see dr cormier next week GIOVANA Voss MD December 29, 2018 12:29
--- NOTE | 2018-12-29 13:45 | NUR ---
PATIENTS IV OUT AND TELE MONITOR OFF. PATIENT GIVEN PRESCRIPTION FOR LISINOPRIL. PATIENT INFORMED TO FOLLOW UP WITH CARDIOLOGY AND NEPHROLOGY OUTPATIENT. PATIENT HAS NO QUESTIONS AT THIS TIME. PATIENT STABLE AT TIME OF DISCHARGE WITH NO CHEST PAIN PRESENT. PATIENT ESCORTED TO WIFES PERSONAL VEHICLE BY THIS RN.
--- NOTE | 2018-12-29 15:50 | PDOC ---
PROGRESS NOTES Assessment Assessment Recurrent near-syncopal spells. Chest pain. HTN HLD. Renal disease. Pacemaker placement. Hearing loss. RECOMMENDATIONS/PLAN: Consulted Cardiology. Treat medical diseases. OT/PT. Discussed with his again at bedside on 12/29/18. HISTORY OF THE PRESENT ILLNESS: This is a 73-y-old male patient who was admitted with complaints of chest pain and dizziness. He was gardening and was noticed by his that his endurance has decreased which is quite opposite than the endurance he displayed while he was bowling for an hour without any problem when suddenly he felt flushed, had midchest tightness with shoulder discomfort and mildly diaphoretic but no nausea. No SOA. This lasted about 1-2 minutes. He sat down and got better. He started bowling again for round 2 and started having symptoms again 10 minutes later. This did not recur again. He stated he had frequent near syncopal spells about 3 years ago and he had to find place to sit right away and his syncopal symptoms can be resolved. He eventually had pacemaker placement about 2 years and he had not had syncopal spells in the past 2 years until now. No seizures. No focalized sensory or motor deficits. No similar episodes since in the hospital. PAST MEDICAL HISTORY Cardiovascular: HTN, Hyperlipidemia Heme/Onc: Anemia NOS, Other (DVT to arm?) Musculoskeletal: Osteoarthritis Renal/: Chronic renal insuff (4), Benign prostatic enlarg., Other (alports syndrome) PAST SURGICAL HISTORY Pacemaker, Cataract Removal, Hernia Repair (right inguinal), Tonsillectomy, Other (rectal polypectomy) FAMILY HISTORY Heart Disease ALLERGIES Coded Allergies: Influenza Virus Vaccines (Verified Allergy, Intermediate, GUILLAIN BARRE SYMPTOMS, 04/16/18) diphenhydramine (Verified Adverse Reaction, Mild, CHANGE IN PERSONALITY, 04/16/18) CHANGE IN PERSONALITY SOCIAL HISTORY Smoke: Quit ALCOHOL: occasionally Drugs: None Lives: with his . REVIEW OF SYSTEMS: Constitutional: No malnutrition, weight loss, cachexia. Head: No traumatic brain or head injury. Skin: No edema, or rash. Ear: No infection. Eyes: No vision loss or color blindness. Nose: No bleeding or purulent discharges. Hearing: Hearing loss. Neck: No injury. Cardiac: CAD, s/p Pacemaker Placement, HTN, HLD. Pulmonary: No COPD. GI: No GI ulcer, GI bleeding. Urinary/genital: UTI. Endocrinologic: Diabetes Mellitus. Skeletomuscular: No muscular atrophy. Neurological: see HP. Psychiatric: Denies drug use/abuse. Otherwise, not [id number] review of systems. PHYSICAL EXAMINATION: General appearance is in subacute distress. HEENT: Normocephalic and nontraumatic. Eyes, nose, ears, and throat are unremarkable. Neck is supple. No lymphadenopathy. No crepitus. Cardiovascular: S1, S2, regular rate and rhythm. Pulmonary: Clear to auscultation bilaterally. Abdomen: Bowel sounds are positive. Abdomen is soft, nontender, and nondisten ded. Extremities: No rash, lesions, or edema. No restriction of range of motion NEUROLOGICAL EXAMINATION: Alert Oriented to time, place and person. PERRL. EOMI. CN: no focal findings. Muscle tone: within normal. Muscle strength: 5- DTR: 2- Plantar reflex: Flexor response bilaterally Gait: able to walk at his baseline normal. Sensory exam: no abnormal findings. No cerebellar signs elicited. F-T-N test accurate. Objective Objective Vital Signs Date Time Temp Pulse Resp B/P (MAP) Pulse Ox O2 Delivery O2 Flow Rate FiO2 12/29/18 11:00 97.6 60 12 158/65 (96) 99 Room Air 97.6 Intake and Output 12/29/18 07:00 Intake Total 860 ml Balance 860 ml Intake Oral 860 ml # Voids 2 Vitals Signs Vitals VS - Last 72 Hours, by Label Date Time Temp Pulse Resp B/P (MAP) Pulse Ox O2 Delivery O2 Flow Rate FiO2 12/29/18 11:00 97.6 60 12 158/65 (96) 99 Room Air 97.6 12/29/18 08:53 97.4 60 12 158/73 (101) 100 Room Air 97.4 12/29/18 08:22 60 158/73 12/29/18 08:21 60 158/73 12/29/18 07:30 Room Air 12/29/18 07:00 97.4 60 12 158/73 (101) 100 Room Air 97.4 12/29/18 03:36 98.0 63 17 138/67 (90) 98 Room Air 98.0 12/28/18 23:57 97.7 60 16 123/59 (80) 98 Room Air 97.7 12/28/18 20:10 Room Air 12/28/18 19:59 97.9 60 16 134/61 (85) 97 Room Air 97.9 12/28/18 16:52 60 154/73 12/28/18 15:00 97.2 60 16 154/73 (100) Room Air 97.2 12/28/18 11:29 60 136/70 (92) 12/28/18 11:26 60 146/69 (94) 12/28/18 11:23 97.7 60 14 140/66 (90) 98 Room Air 97.7 12/28/18 08:58 60 153/65 12/28/18 07:42 Room Air 12/28/18 07:15 97.8 60 18 153/65 (94) 97 Room Air 97.8 Laboratory Laboratory Laboratory Tests Test 12/29/18 04:00 White Blood Count 6.3 x10^3/uL (4.0-11.0) Red Blood Count 2.81 x10^6/uL (4.30-5.70) Hemoglobin 9.4 g/dL (13.0-17.5) Hematocrit 27.5 % (39.0-53.0) Mean Corpuscular Volume 98 fL (79-100) Mean Corpuscular Hemoglobin 33 pg (25-35) Mean Corpuscular Hemoglobin Concent 34 g/dL (31-37) Red Cell Distribution Width 13.2 % (11.5-14.5) Platelet Count 208 x10^3/uL (140-400) Neutrophils (%) (Auto) 58 % (31-73) Lymphocytes (%) (Auto) 24 % (24-48) Monocytes (%) (Auto) 12 % (0-9) Eosinophils (%) (Auto) 6 % (0-3) Basophils (%) (Auto) 0 % (0-3) Neutrophils # (Auto) 3.6 x10^3uL (1.8-7.7) Lymphocytes # (Auto) 1.5 x10^3/uL (1.0-4.8) Monocytes # (Auto) 0.7 x10^3/uL (0.0-1.1) Eosinophils # (Auto) 0.4 x10^3/uL (0.0-0.7) Basophils # (Auto) 0.0 x10^3/uL (0.0-0.2) Sodium Level 143 mmol/L (136-145) Potassium Level 4.5 mmol/L (3.5-5.1) Chloride Level 111 mmol/L (98-107) Carbon Dioxide Level 23 mmol/L (21-32) Anion Gap 9 (6-14) Blood Urea Nitrogen 50 mg/dL (8-26) Creatinine 3.2 mg/dL (0.7-1.3) Estimated GFR (Cockcroft-Gault) 19.1 Glucose Level 94 mg/dL (70-99) Calcium Level 8.4 mg/dL (8.5-10.1) Phosphorus Level 3.5 mg/dL (2.6-4.7) Albumin 2.5 g/dL (3.4-5.0) Medication Medications Current Medications Ferrous Sulfate (Feosol) 325 mg QODAY PO Last administered on 12/29/18at 08:20; Start 12/29/18 at 09:00 Lisinopril (Prinivil) 20 mg DAILY PO Last administered on 12/29/18at 08:22; Start 12/28/18 at 18:00 Comment Review of Relevant I have reviewed the following items nancy (where applicable) has been applied. OLINDA IRENE MD December 29, 2018 15:50
== END 2018-12-29 14:00 | disposition home or self-care (01) | DRG 311 ==
LOC: ER 09:23 → 2 NORTH 11:52
PROVIDERS: ADMIT Family Medicine; ATTEND Family Medicine
PROC: 4B02XSZ Measurement of Cardiac Pacemaker, External Approach (ICD-10-PCS; principal; 2018-12-27)
DX: I20.8 Other forms of angina pectoris (principal); E87.0 Hyperosmolality and hypernatremia; N17.9 Acute kidney failure, unspecified; Q87.81 Alport syndrome; N18.4 Chronic kidney disease, stage 4 (severe); E78.00 Pure hypercholesterolemia, unspecified; E78.5 Hyperlipidemia, unspecified; E87.8 Other disorders of electrolyte and fluid balance, not elsewhere classified; M19.90 Unspecified osteoarthritis, unspecified site; I49.5 Sick sinus syndrome; D63.8 Anemia in other chronic diseases classified elsewhere; I12.9 Hypertensive chronic kidney disease with stage 1 through stage 4 chronic kidney disease, or unspecified chronic kidney disease; H91.90 Unspecified hearing loss, unspecified ear; Z86.718 Personal history of other venous thrombosis and embolism; Z88.7 Allergy status to serum and vaccine; Z82.49 Family history of ischemic heart disease and other diseases of the circulatory system; Z88.8 Allergy status to other drugs, medicaments and biological substances; Z87.891 Personal history of nicotine dependence; Z95.0 Presence of cardiac pacemaker
CPT/HCPCS: 36415; 70450; 71045; 80048; 80053; 80061; 80069; 80307; 81001; 82553; 83690; 83735; 83880; 84443; 84484; 85025; 85610; 93005; 93308; 93880; 99285-25

== ENCOUNTER → 2019-01-02 | Outpatient (CLI) | payer OTHER ==
[2018-12-29 11:00] VITALS: BP 158/65
[~2019-01-02] MED LIST changes: +CALC-77 PO; +CARV12.511 PO; +CYAN-9 PO; +FERR325T14 PO; +PANT20TA2 PO; +REGADENOSON 0.4 MG/5 ML DISP.SYRIN. IV ONE
--- NOTE | 2019-01-02 11:23 | NUR ---
partial portion of lexiscan infiltrated during injection. Dr. Aguirre said to give another lexiscan and continue with test today.
--- NOTE | 2019-01-02 13:42 | RAD ---
MR#: [id number] Date of Study: 01/02/2019 Ordering Physician: LINA FRITZ Referring Physician: CHRISTINA HICKMAN Tech: RT Lisa Pryor) (N) APPROVED REPORT Test Type: Pharmacological Stress Nurse/Tech: Licha Dominguez R.N. Test Indications: c/p Cardiac History: HTN, PPM Medications: Zocor Medical History: See Electronic Medical Record Resting ECG: SR w/ paced beats and pvc's Resting Heart Rate: 72 bpm Resting Blood Pressure: 170/66mmHg Pretest Chest Pain: No chest pain Nurse/Tech Notes S1S2, lungs CTA Consent: The procedure was explained to the patient in lay terms. Informed consent was witnessed. Iván eout was entered into [email or web address]. History and Stress Test performed by RT Lisa Cha) (N) Pharm. Details Pharmacologic stress testing was performed using 0.4mg per 5ml of regadenoson given intravenously ove r 7-10 seconds. Stress Symptoms SOB, nausea POST EXERCISE Reason for Termination: Infusion complete Max HR: 90 bpm Max Blood Pressure: 148/50mmHg Blood Pressure response to exercise: Normal blood pressure response during stress. Heart Rate response to exercise: wnl Chest Pain: No. Arrhythmia: No. ST Change: No. INTERPRETATION Stress EKG Conclusion: No evidence of stress induced EKG changes. Imaging Protocol IMAGE PROTOCOL: Rest Tc-99m/stress Tc-99m 1 day Rest: Stress: Viability: Radiopharm.Tc99m [id number] Sestamibi [id number] 32.1mCi Duration 13min. 13min. Img Date 01/02/2019 01/02/2019 Inj-Img Ecxt31mir. 60min. Rest Admin Site:IV - Right AntecubitalAdministrator:RT Lisa Cha)(N) Stress Admin Site: IV - Left HandAdministrator: RT Lisa Cha)(N) STRESS DATA End Diast. Vol.82.0mlLVEDV index BSA51.0ml End Syst. Vol.21.0mlLVESV index BSA13.0ml Myocardial Cdjy222.0gEject. Ncdtolkq71.0% Stress Scores Regional WT0.00Summed WT0.00 Regional WM0.00Summed WM1.00 The rest and stress images show normal perfusion, normal contraction and thickening. LV Perf. Quant 17 Seg. SSS1.00 17 Seg. SRS4.00 17 Seg. SDS0.00 Stress Defect Extent (% LAD)0.00Rest Defect Extent (% LAD)2.50Rev. Defect Extent (% LAD)0.00 Stress Defect Extent (% LCX) 0.00Rest Defect Extent (% LCX)0.00Rev. Defect Extent (% LCX)0.00 Stress Defect Extent (% RCA)0.00Rest Defect Extent (% RCA)7.80Rev. Defect Extent (% RCA)0.00 Stress Defect Extent (% JONNY)0.00Rest Defect Extent (% JONNY)3.50Rev. Defect Extent (% JONNY)0.00 Other Information Quality:Average Risk Assessment: Low Risk Conclusion 1. No evidence of EKG changes with stress testing. 2. Normal perfusion at stress/rest. 3. Low risk study. 4. EF > 60%. Signed by : Kendrick Canales, Electronically Approved : 01/02/2019 13:41:48
== END | disposition home or self-care (01) ==
LOC: NM 09:16
PROVIDERS: ATTEND Internal Medicine Cardiovascular Disease
DX: R07.9 Chest pain, unspecified (principal); I10 Essential (primary) hypertension; I12.9 Hypertensive chronic kidney disease with stage 1 through stage 4 chronic kidney disease, or unspecified chronic kidney disease; N18.4 Chronic kidney disease, stage 4 (severe)
CPT/HCPCS: 78452; 93017; A9500; J2785

== ENCOUNTER → 2019-01-20 | Outpatient (CLI) | payer OTHER ==
[2018-12-29 11:00] VITALS: BP 158/65
[~2019-01-20] MED LIST changes: -REGADENOSON 0.4 MG/5 ML DISP.SYRIN. IV ONE
--- NOTE | 2019-01-20 18:07 | RAD ---
Renal ultrasound, 01/20/2019: HISTORY: Renal cysts, chronic kidney disease The right kidney measures 7.7 cm in length while the left kidney measures 8.0 cm. There is bilateral renal cortical scarring. There is mildly increased renal parenchymal echogenicity. There is no evidence of hydronephrosis. A 1.5 cm cyst is noted in the lower pole the right kidney. A 2.4 cm cyst is noted in the upper pole the left kidney. These findings appear unchanged. The bladder is collapsed and not adequately visualized. IMPRESSION: 1. Bilateral renal cortical scarring and atrophy. 2. Mildly increased renal parenchymal echogenicity compatible with medical renal disease. 3. Stable small bilateral renal cysts. Electronically signed by: Terry Simmons MD (01/20/2019 6:03 PM) [facility]
== END | disposition home or self-care (01) ==
LOC: US 15:30
PROVIDERS: ATTEND Family Medicine
DX: N28.1 Cyst of kidney, acquired (principal); N32.89 Other specified disorders of bladder; I12.9 Hypertensive chronic kidney disease with stage 1 through stage 4 chronic kidney disease, or unspecified chronic kidney disease; N18.9 Chronic kidney disease, unspecified
CPT/HCPCS: 76770

== ENCOUNTER → 2019-08-01 | Outpatient (CLI) | payer OTHER ==
[~2019-08-01] MED LIST changes: -CYAN500T2 PO; +CYAN500T52 PO; -PANT40TA5 PO; +PANT40TA77 PO
--- NOTE | 2019-08-01 13:18 | KCIC ---
EXAM: Chest, single view. HISTORY: Chronic kidney disease. Smoking history. COMPARISON: 12/27/2018. FINDINGS: A frontal view of the chest is obtained. There is no infiltrate, pleural effusion or pneumothorax. The heart is normal in size. There are cardiac pacemaker leads in expected position. IMPRESSION: No acute pulmonary finding. Electronically signed by: Tracey Moeller MD (08/01/2019 1:16 PM) [id number]
== END | disposition home or self-care (01) ==
LOC: KCIC 11:21
PROVIDERS: ATTEND Internal Medicine Nephrology
DX: Z01.818 Encounter for other preprocedural examination (principal); N18.4 Chronic kidney disease, stage 4 (severe); Z87.891 Personal history of nicotine dependence
CPT/HCPCS: 71045

== ENCOUNTER 2019-08-04 05:56 | Day surgery (SDC) | payer MEDICARE, OTHER ==
[2019-08-04] MEDS ORDERED: BUPIVACAINE-EPI 0.5%-1:200000 MPF 30 ML VIAL. INJ ONE (06:00)
[2019-08-04] MEDS ORDERED: BACITRACIN 50,000 UNIT in IV NORMAL SALINE 500ML BAG 500 ML IRR ONE (06:00)
[2019-08-04] MEDS ORDERED: HEPARIN 1,000 UNIT in IV NORMAL SALINE 1,000 ML for SURG PERIOP IRR ONE (06:00)
[2019-08-04] MEDS ORDERED: IV NORMAL SALINE 1000ML BAG 1,000 ML IV SCH (06:45)
[2019-08-04] MEDS ORDERED: ceFAZolin 2GM PREMIX 2 GM/50 ML BAG IV ONE (07:00)
[2019-08-04] MEDS ORDERED: HYDROmorphone 2 MG/ML VIAL IV PRN (07:00)
[2019-08-04] MEDS ORDERED: PROCHLORPERAZINE 10 MG/2 ML VIAL. IV PRN (07:00)
[2019-08-04] MEDS ORDERED: ONDANSETRON PF 4 MG/2 ML VIAL. IV PRN (07:00)
[2019-08-04] MEDS ORDERED: LIDOCAINE 1% PF 2 ML VIAL. ID PRN (07:00)
[2019-08-04] MEDS ORDERED: fentaNYL PF VIAL 100 MCG/2 ML VIAL IV PRN ×2 (07:00)
[2019-08-04] MEDS ORDERED: MORPHINE SULFATE 2 MG/ML VIAL. IV PRN (07:00)
[2019-08-04] MEDS ORDERED: IV RINGERS,LACTATED 1000ML 1,000 ML IV SCH (07:00)
[2019-08-04] MEDS ORDERED: SUCCINYLCHOLINE 200 MG/10 ML VIAL. ONE (07:11)
[2019-08-04] MEDS ORDERED: LIDOCAINE 2% PF 5 ML VIAL. ONE (07:11)
[2019-08-04] MEDS ORDERED: fentaNYL PF VIAL 100 MCG/2 ML VIAL ONE (07:11)
[2019-08-04] MEDS ORDERED: PROPOFOL 20 ML IV ONE (07:11)
[2019-08-04] MEDS ORDERED: ROCURONIUM 50 MG/5 ML VIAL. ONE (07:12)
[2019-08-04] MEDS ORDERED: ONDANSETRON PF 4 MG/2 ML VIAL. ONE (07:44)
[2019-08-04] MEDS ORDERED: DEXAMETHASONE SOD PHOS 4 MG/ML VIAL ONE (07:44)
[2019-08-04] MEDS ORDERED: DESFLURANE 61 TO 120 MINUTES IH ONE (07:44)
[2019-08-04] MEDS ORDERED: PHENYLEPHRINE in 0.9% NACL PF 1 MG/10 ML SYRINGE. IV ONE (07:55)
[2019-08-04] MEDS ORDERED: GLYCOPYRROLATE 1 MG/5 ML VIAL. ONE (08:09)
[2019-08-04] MEDS ORDERED: NEOSTIGMINE METHYLSULFATE 5 MG/5 ML SYRINGE. ONE (08:09)
--- NOTE | 2019-08-04 09:12 | PDOC4 ---
Operative Note Operative Note OPERATIVE NOTE: PREOPERATIVE DIAGNOSIS: Renal failure, left inguinal hernia POSTOPERATIVE DIAGNOSIS: Same PROCEDURE: Laparoscopic peritoneal dialysis catheter placement, left inguinal hernia repair SURGEON: Saqib Meeks MD FRAME WIRER: Catherine ROWLAND ANESTHESIA: General. ESTIMATED BLOOD LOSS: 10 mL. SPECIMENS: None. DRAINS: None. COMPLICATIONS: None. INDICATIONS: The patient is a 74-year-old male who was referred for placement of a peritoneal dialysis catheter due to progressive renal failure. In addition he is found on exam to have a left inguinal hernia. The plan is to proceed with placement of the catheter and repair of the hernia. The details and risks of surgery were discussed with the patient. The risks of surgery include bleeding, infection, visceral injury, pain, anesthetic risk, potential need for additional surgery or procedure. In addition, the patient is aware of the potential for catheter malfunction or dysfunction and possibility of needing revision, replacement, or removal of the catheter. They understand all this and would like to proceed. DESCRIPTION OF PROCEDURE: The patient was brought to the operating room and placed supine on the operating table. General anesthesia was performed. The abdomen was prepped with ChloraPrep and draped in a standard surgical manner. A small incision was made in the patient's right upper quadrant through which a visualized 5-mm trocar was inserted. A pneumoperitoneum was then created and the laparoscope was introduced. Initial inspection showed no significant adhesions or any other gross abnormalities. Using the placement template, the left abdomen was marked with a planned catheter exit site in the LLQ. A small incision was made to the left of the patient's midline at the marked location for the exit site of the cuff. An 8-mm trocar was inserted through this location. The coiled portion of the lower catheter was then inserted into the pelvis under direct visualization. The cuff was positioned in the rectus musculature. The coiled portion rested well in the inferior mid pelvis. The p neumoperitoneum was then relieved. An incision was then made in the left lower quadrant at the planned exit site. The proximal portion of the catheter was tunnelled subcutaneously to the exit site. The proximal cuff remained in the subcutaneous tissue a few cm away from the exit site. The catheter was then assembled to IV tubing and tested by infusing a liter of saline. The saline passed easily into the abdomen and the bag was placed on the floor. Nearly all of the saline readily was retrieved with prompt flow. The abdominal cavity was then reinsufflated and the laparoscope was reintroduced showing no change in the catheter position and the cuff remained in the rectus. The pneumoperitoneum was relieved and the ports were removed. The catheter was then assembled to the connector tubing as per the dialysis instructions. We then directed our attention to the left groin. An incision was made in the groin with the scalpel. Cautery dissection was carried down to the external oblique aponeurosis. The aponeurosis was opened down to the external ring. The contents of the inguinal canal were digitally mobilized and encircled with a Remy drain. The patient had a moderate sized direct hernia defect. The attenuated transversalis fascia was opened exposing the preperitoneal fat. The fat was reduced and the defect filled with a large Phasix mesh plug. The plug was sutured around its periphery with 2-0 Vicryl. The inguinal floor was then reinforced with a Prolene keyhole mesh patch. The mesh was also sutured to the inguinal floor with 2-0 Vicryl and a slit was made to accommodate the cord structures. Upon completion the mesh rested well providing full coverage of the inguinal floor and the plug remained intact deep to it. The subcutaneous tissue was approximated with 3-0 Vicryl. All the incision sites were closed with 4-0 Monocryl. Steri-Strips and sterile dressing were then applied. The patient tolerated procedure well and was sent to the recovery room in stable condition. At the end of the case all counts were correct. SAQIB MEEKS MD Aug 04, 2019 09:12
--- NOTE | 2019-08-04 09:15 | DISCH ---
DISCHARGE INSTRUCTIONS Condition on Discharge Condition on Discharge: Stable Activity After Discharge Activity Instructions for Disc: Other, see below (no lifting over 20 lbs X 4 weeks) Diet after Discharge Diet after Discharge: Regular Wound Incision Care Wound/Incision Care: Other, see below (keep dressings clean and dry, may remove groin dressing after 72 hours) Follow-Up Follow up with: dialysis center per appointment Follow Up With: Dr Meeks in 2 weeks, call for appt [phone] JACK MEEKS MD Aug 04, 2019 09:15
[2019-08-04] MEDS ORDERED: HYDROcodone/APAP 5/325MG 1 TAB TABLET PO ONE ×2 (09:45)
[2019-08-04 10:30] VITALS: BP 133/69
== END 2019-08-04 11:17 | disposition home or self-care (01) ==
LOC: SURG 05:56
PROVIDERS: ATTEND Surgery
DX: I12.9 Hypertensive chronic kidney disease with stage 1 through stage 4 chronic kidney disease, or unspecified chronic kidney disease (principal); K40.90 Unilateral inguinal hernia, without obstruction or gangrene, not specified as recurrent; E11.22 Type 2 diabetes mellitus with diabetic chronic kidney disease; N18.4 Chronic kidney disease, stage 4 (severe); E78.5 Hyperlipidemia, unspecified; D64.9 Anemia, unspecified; Z95.0 Presence of cardiac pacemaker; Z98.49 Cataract extraction status, unspecified eye; Z87.891 Personal history of nicotine dependence; Z88.1 Allergy status to other antibiotic agents; Z79.84 Long term (current) use of oral hypoglycemic drugs; Z96.1 Presence of intraocular lens
CPT/HCPCS: 49324; 49505; A7015; C1713; C1781; J0330; J0696; J1100; J1644; J2001; J2370; J2405; J2704; J2710; J3010; J3490; J7030; J7040

== ENCOUNTER → 2020-03-01 | Outpatient (CLI) | payer MEDICARE ==
[2019-10-09 14:22] VITALS: BP 150/73
[~2020-03-01] MED LIST changes: +ACET325T9 PO; +CALC500T30 PO; +CARV25TA PO; +FOLI0.8T32 PO; +FURO80TA3 PO; +LACT1CAP19 PO; +LISI10TA2 PO; +POTA20TA4 PO; +REGADENOSON 0.4 MG/5 ML DISP.SYRIN. IV ONE
--- NOTE | 2020-03-01 13:26 | RAD ---
MR#: [id number] Date of Study: 03/01/2020 Ordering Physician: LINA FRITZ Referring Physician: CHRISTINA HICKMAN Tech: EMILY Richards APPROVED REPORT Test Type: Pharmacological Stress Nurse/Tech: Annie Bauer RN Test Indications: SSS Cardiac History: Hypertension, SSS, pacemaker Medications: See Electronic Medical Record Medical History: See Electronic Medical Record Resting ECG: A-paced Resting Heart Rate: 60 bpm Resting Blood Pressure: 154/68mmHg Pretest Chest Pain: No chest pain Nurse/Tech Notes S1S2, Lungs CTA Consent: The procedure was explained to the patient in lay terms. Informed consent was witnessed. Iván eout was entered into [employer]. History and Stress Test performed by RT Semaj (R) (N) Pharm. Details Pharmacologic stress testing was performed using 0.4mg per 5ml of regadenoson given intravenously ove r 7-10 seconds. Stress Symptoms Dyspnea, Nausea POST EXERCISE Reason for Termination: Infusion complete Max HR: 92 bpm Max Blood Pressure: 138/55mmHg Blood Pressure response to exercise: Normal blood pressure response during stress. Heart Rate response to exercise: WNL Chest Pain: No. Arrhythmia: No. ST Change: No. INTERPRETATION Stress EKG Conclusion: The resting EKG shows an atrial paced rhythm. The stress EKG shows no evidence of stress-induced ischemia. Imaging Protocol IMAGE PROTOCOL: Rest Tc-99m/stress Tc-99m 1 day Rest: Stress: Viability: Radiopharm.Tc99m NylskggxgIa22l Sestamibi Bdyp70qCa 32.4mCi Duration 15min. 10min. Img Date 03/01/2020 03/01/2020 Inj-Img Frri48dqr. 60min. Rest Admin Site:IV - Right AntecubitalAdministrator:EMILY Richards Stress Admin Site: IV - Right AntecubitalAdministrator: RT Semaj (R)(N) STRESS DATA End Diast. Vol.87.0mlAv. Heart Rate60.0bpm End Syst. Vol.24.0mlCO Index BSA0.0L/min Myocardial Clcl402.0gEject. Ekxqkozb73.0% Stress Rates Pk. Fill Rate2.77EDV/secLVtime Pk. Fill 156.41msec Pk. Empty Rate3.69ESV/secLVtime Pk. Fmcby854.29msec 1/3 Pk. Fill1.61EDV/sec Stress Scores Regional WT0.00Summed WT1.00 Regional WM0.00Summed WM0.00 LV Perfusion The stress images showed no significant defects. The rest images showed mild thinning in the distal inferior apical region. Nuclear imaging shows no reversible ischemia or prior infarct. Wall Motion Left ventricular systolic function is normal with no regional wall motion abnormalities and an ejecti on fraction of 69%. LV Perf. Quant 17 Seg. SSS6.00 17 Seg. SRS15.00 17 Seg. SDS0.00 Stress Defect Extent (% LAD)3.10Rest Defect Extent (% LAD)18.80Rev. Defect Extent (% LAD)0.00 Stress Defect Extent (% LCX) 11.30Rest Defect Extent (% LCX)21.30Rev. Defect Extent (% LCX)0.00 Stress Defect Extent (% RCA)0.00Rest Defect Extent (% RCA)42.20Rev. Defect Extent (% RCA)0.00 Stress Defect Extent (% JONNY)3.50Rest Defect Extent (% JONNY)32.00Rev. Defect Extent (% JONNY)0.00 IMPRESSION LV Perfusion Summary: Normal, Equivocal, Abnormal LV Viability Summary: Significantly viable myocardium, Potentially viable myocardium, Non-viable myoc ardium Conclusion 1. No EKG evidence of stress-induced ischemia. 2. Nuclear imaging shows no reversible ischemia or infarct. 3. Normal LV systolic function with an ejection fraction of 69% and no regional wall motion abnormali ties. 4. Low risk Lexiscan nuclear stress test. Signed by : Nick Justin MD Electronically Approved : 03/01/2020 13:26:06
--- NOTE | 2020-03-01 14:07 | CARD ---
MR#: [id number] Date of Study: 03/01/2020 Ordering Physician: LINA FRITZ, Referring Physician: LINA FRITZ Tech: Merry Presley RDCS APPROVED REPORT EXAM: Two-dimensional and M-mode echocardiogram with Doppler and color Doppler. Other Information Quality : Good INDICATION Sick Sinus Syndrome-Pacemaker 2D DIMENSIONS Left Atrium(2D)2.6 (1.6-4.0cm)IVSd0.6 (0.7-1.1cm) Aortic Root(2D)3.2 (2.0-3.7cm)LVDd5.0 (3.9-5.9cm) LVOT Diameter2.3 (1.8-2.4cm)PWd0.7 (0.7-1.1cm) LVDs3.9 (2.5-4.0cm)FS (%) 23.0 % SV55.0 ml Aortic Valve AoV Peak Elfego.114.0cm/sAoV VTI22.5cm AO Peak GR.5.2mmHgLVOT Peak Elfego.100.7cm/s AO Mean GR.3mmHgAVA (VMAX)3.58cm2 SANYA (VTI)3.70cm2 Mitral Valve MV E Guhixdzb45.0cm/sMV DECEL PXGW142jr MV A Howaumim56.7cm/sE/A Ratio0.8 Tricuspid Valve TR P. Rxbatkyx997sc/sRAP YYOJPXAS4woBn TR Peak Gr.40nwXfFDAG36gnUb Pulmonary Vein S1 Wbzcutdd79.4cm/sD2 Grazpowb31.1cm/s LEFT VENTRICLE The left ventricle is normal size. There is normal left ventricular wall thickness. Left ventricle sy stolic function is minimally impaired. The Ejection Fraction is 45-50%. Apical motion consistent with pacemaker activation. Transmitral Doppler flow pattern is Grade I-abnormal relaxation pattern. RIGHT VENTRICLE The right ventricle is normal size. The right ventricular systolic function is normal. ATRIA The left atrium size is normal. The right atrium size is normal. The interatrial septum is intact wit h no evidence for an atrial septal defect or patent foramen ovale as noted on 2-D or Doppler imaging. AORTIC VALVE The aortic valve is calcified but opens well. Doppler and Color Flow revealed no significant aortic r egurgitation. There is no significant aortic valvular stenosis. MITRAL VALVE The mitral valve is calcified but opens well. There is no evidence of mitral valve prolapse. There is no mitral valve stenosis. Doppler and Color-flow revealed trace to mild mitral regurgitation. TRICUSPID VALVE The tricuspid valve is normal in structure and function. Doppler and Color Flow revealed trace tricus pid regurgitation. The PA pressure was estimated at 29 mmHg. There is no tricuspid valve stenosis. PULMONIC VALVE The pulmonic valve is not well visualized. Doppler and Color Flow revealed no pulmonic valvular regur gitation. There is no pulmonic valvular stenosis. GREAT VESSELS The aortic root is normal in size. The ascending aorta is not well seen. The IVC is normal in size an d collapses >50% with inspiration. PERICARDIAL EFFUSION There is no evidence of significant pericardial effusion. Critical Notification Critical Value: No <Conclusion> The left ventricle is normal size. Left ventricle systolic function is minimally impaired. The Ejection Fraction is 45-50%. Apical motion consistent with pacemaker activation. Doppler and Color Flow revealed no significant aortic regurgitation. There is no significant aortic valvular stenosis. Doppler and Color-flow revealed trace to mild mitral regurgitation. Doppler and Color Flow revealed trace tricuspid regurgitation. The PA pressure was estimated at 29 mmHg. Signed by : Nick Justin MD Electronically Approved : 03/01/2020 14:06:45
== END | disposition home or self-care (01) ==
LOC: ECHO 08:50
PROVIDERS: ATTEND Internal Medicine Cardiovascular Disease
DX: I08.0 Rheumatic disorders of both mitral and aortic valves (principal); I49.5 Sick sinus syndrome; I10 Essential (primary) hypertension; Z95.0 Presence of cardiac pacemaker
CPT/HCPCS: 78452; 93017; 93306; A9500; J2785

== ENCOUNTER 2020-11-15 08:22 | Outpatient (CLI) | payer MEDICARE ==
[~2020-11-15] VITALS: Ht 162.6 cm; Wt 58.5 kg
[~2020-11-15 08:22] MED LIST changes: -CYAN500T52 PO; +CYAN500T7 PO; -LISI-334 PO; +LISI10TA16 PO; -LISI10TA2 PO; +LISI20TA18 PO; -REGADENOSON 0.4 MG/5 ML DISP.SYRIN. IV ONE
[2020-11-15] MEDS ORDERED: IOHEXOL 240 MG/ML 50ML VIAL. ONE (08:24)
[2020-11-15] MEDS ORDERED: TRAZ-118 PO (08:53)
[2020-11-15] MEDS ORDERED: CARV25TA2 PO (08:53)
[2020-11-15] MEDS ORDERED: MEMA10TA PO (08:53)
[2020-11-15] MEDS ORDERED: LISI20TA18 PO (08:53)
[2020-11-15 08:54] VITALS: BP 146/78
[2020-11-15 09:34] VITALS: BP 149/71
[2020-11-15 09:44] VITALS: BP 150/65
[2020-11-15] MEDS ORDERED: IOHEXOL 300 MG/ML 50 ML VIAL. IART ONE (09:45)
[2020-11-15] MEDS ORDERED: CONTRAST GIVEN. MC PRN (10:00)
[2020-11-15 10:03] VITALS: BP 152/68
--- NOTE | 2020-11-15 10:16 | NUR ---
Patient taken to vehicle w/ . VS stable. All belongings taken w/ patient at time of d/c.
--- NOTE | 2020-11-16 08:23 | RAD ---
Fluoroscopic evaluation of peritoneal dialysis catheter 11/15/2020 INDICATION: Poor function Discussion: The procedure was explained in its entirety to the patient or the patients designated in home sales representative by a member of the treatment team, including a discussion of the risks, benefits and commonly accepted alternatives to the procedure, as well as the expected consequences of no therapy whatsoever. Discussion of the risks included, but was not limited to, those that are most frequent and those that are rare but possibly severe or life-threatening, as well as the possibility of unforeseen complications. All elements of maximal sterile barrier technique including the use of a cap, mask, sterile gown, sterile gloves, large sterile sheet, appropriate hand hygiene, and 2% chlorhexidine for cutaneous antisepsis (or acceptable alternative antiseptic per current guidelines) were followed for this procedure. Total fluoroscopy time: 1.2 min Dose area product: 15 Gycm2 Catheter was evaluated fluoroscopically and found to lie in the right lower quadrant. The catheter flushed freely. Contrast was administered which was distributed predominantly in the right abdomen in the paracolic gutter. Contrast and fluid was found easily aspirated, and spontaneously flow through the catheter. A guidewire was advanced to the catheter into the peritoneum. The catheter tip was uncurled and the wire was removed, with reformatting of the catheter into the same position. IMPRESSION: 1. Catheter position in the right lower quadrant 2. The catheter is grossly patent. Contrast flows away from the catheter but appears prominently stay in the right lower quadrant and right paracolic gutter
== END 2020-11-15 10:15 | disposition home or self-care (01) ==
LOC: INTRAD 08:22
PROVIDERS: ATTEND Internal Medicine Nephrology
DX: N28.9 Disorder of kidney and ureter, unspecified (principal); I12.9 Hypertensive chronic kidney disease with stage 1 through stage 4 chronic kidney disease, or unspecified chronic kidney disease; N18.4 Chronic kidney disease, stage 4 (severe); E78.00 Pure hypercholesterolemia, unspecified; I25.10 Atherosclerotic heart disease of native coronary artery without angina pectoris; K21.9 Gastro-esophageal reflux disease without esophagitis; Z99.2 Dependence on renal dialysis; Z79.899 Other long term (current) drug therapy; Z98.890 Other specified postprocedural states; Z72.89 Other problems related to lifestyle; Z88.8 Allergy status to other drugs, medicaments and biological substances
CPT/HCPCS: 49400; 74190; 87426; C1769; Q9967; U0003; C9803; U0005

== ENCOUNTER 2021-01-16 12:08 | Emergency (ER) | payer MEDICARE ==
[~2021-01-16] VITALS: Ht 162.6 cm; Wt 54.9 kg
[~2021-01-16 12:08] MED LIST changes: +CARV25TA2 PO; +MEMA10TA PO; +TRAZ-118 PO
--- NOTE | 2021-01-16 14:15 | RAD ---
Single view chest dated . Comparison made to 10/05/2019. Clinical data indication: hd problem. Findings Single upright portable exam performed. Heart and mediastinal contours are stable. Dual lead left sub clavian pacer in place, unchanged. Lungs are clear. No consolidation or pleural effusion. No pneumoth orax. IMPRESSION: No acute radiographic abnormality. Stable findings compared to 10/05/2019. Electronically signed by: Justyn Celis MD (01/16/2021 2:12 PM) [id number]
--- NOTE | 2021-01-16 14:46 | PHYS DOC ---
Past Medical History Past Medical History: Anemia, Arrhythmia, High Cholesterol, Hypertension, Renal Disease, Other Additional Past Medical Histor: WET MAC D Past Surgical History: Pacemaker, Other Additional Past Surgical Histo: HERNIA Smoking Status: Never Smoker Alcohol Use: Occasionally Drug Use: None General Adult EDM: Chief Complaint: DIALYSIS PROBLEM HPI: HPI: 75 yo M PMH peritoneal dialysis (daily x1.5 years, Dr. Riddle), bradycardia with pacemaker (Dr. Mayen), HLD, gerd, dementia and hypothyroidism presents to the ED with his with concern for " he has not been eating or drinking much for the past week, is primarily sleeping all the time." Hasn't had a whole meal in 1 week. Is tolerating daily dialysis. Dr. Pantoja he discontinued patient's carvedilol lisinopril this past month. Primary care physician is Dr. Curtis. No associated fever, vomiting, diarrhea, cough, chest pain, worsening back pain or difficulties breathing. Compliant with his thyroid medication. Review of Systems: Review of Systems: ROS: limited 2/2 dementia +/-medical condition/dehydration Heart Score: C/O Chest Pain: N/A Risk Factors: Risk Factors: DM, Current or recent (<one month) smoker, HTN, HLP, family history of CAD, obesity. Risk Scores: Score 0 - 3: 2.5% MACE over next 6 weeks - Discharge Home Score 4 - 6: 20.3% MACE over next 6 weeks - Admit for Clinical Observation Score 7 - 10: 72.7% MACE over next 6 weeks - Early Invasive Strategies Allergies: Allergies: Allergies Coded Allergies Type Severity Reaction Last Updated Verified Influenza Virus Vaccines Allergy Intermediate GUILLAIN BARRE SYMPTOMS 08/04/19 Yes diphenhydramine Adverse Reaction Mild CHANGE IN PERSONALITY 08/04/19 Yes Physical Exam: PE: Constitutional: Afebrile, no acute distress, non-toxic appearance. HENT: Normocephalic, atraumatic, very dry mucous membranes, hard of hearing Eyes: EOMI, conjunctiva normal, no discharge. Neck: Normal range of motion, supple, Cardiovascular: S1/2 present, regular rhythm Lungs & Thorax: Speaking in full sentences, bilateral equal chest rise, no tachypnea or increased work of breathing Abdomen: soft, no tenderness, no rigidity/guarding, catheter clean/dry Skin: Warm, dry, no erythema, no rash. [] Extremities: No tenderness, no cyanosis, no unilateral lower extremity edema Neurologic: Alert, no focal deficits noted. [] Psychologic: calm mood, normal affect EKG: EKG: Sinus rhythm at 63 bpm, no axis deviation, QRS 132, T wave inversion V2 and V3, no ST elevations or ST depressions Radiology/Procedures: Radiology/Procedures: []IMAGING REPORT Signed PATIENT: CAITLIN SAUL ACCOUNT: [id number] : 1945 LOCATION: ER AGE: 75 SEX: M EXAM STATUS: REG ER ORD. PHYSICIAN: PRIMO POTTER DO REASON: hd problem PROCEDURE: PORTABLE CHEST 1V Single view chest dated . Comparison made to 10/05/2019. Clinical data indication: hd problem. Findings Single upright portable exam performed. Heart and mediastinal contours are stable. Dual lead left subclavian pacer in place, unchanged. Lungs are clear. No consolidation or pleural effusion. No pneumothorax. IMPRESSION: No acute radiographic abnormality. Stable findings compared to 10/05/2019. Electronically signed by: Justyn Celis MD (01/16/2021 2:12 PM) [id number] DICTATED and SIGNED BY: JUSTYN CELIS MD DATE: 01/16/21 [id number] 0 Course & Med Decision Making: Course & Med Decision Making Pertinent Labs and Imaging studies reviewed. (See chart for details) Concern for failure to thrive/worsening dementia in a nontoxic, well appearing pt, slightly dehydrated. Labs, ed workup and physical exam w/no signs of infection. Magnesium replaced in ed. Pt tolerating oral fluids. aware of benign workup - I advised ensure and urgent pcp followup. Will discharge home with strict ED return precautions were given for syncope, chest pain, confusion, neurologic deficits, dyspnea or increased work of breathing. Encouraged urgent outpatient follow-up with PMD in 24 to 48 hours to discuss failure to thrive and repeat magnesium level. Life-threatening processes were considered but are low suspicion at this time, given history, physical exam and ED workup. Pt was educated on all prescription medications and adverse effects. All patient's questions were answered and pt was stable at time of discharge. Life/limb-threatening differential includes but is not limited to, end organ damage/sepsis, trauma/abuse/neglect, neurologic deficit, alcohol/drug ingestion, toxidrome, suicidal/homicidal ideations plans or attempts, psychosis or mental illness resulting in self neglect and inability to care for self. I spoken with the patient and her caregivers. I explained the patient's condition, diagnoses and treatment plan based on the information available to me at this time. I have answered the patient and her caregiver's questions and addressed any concerns. The patient and her caregivers have a good understanding of patient's diagnosis, condition and treatment plan as can be expected at this point. Vital signs have been stable. Patient's condition is stable and appropriate for discharge from the emergency department. Patient will pursue further outpatient evaluation with primary care physician or other designated or consulting physician as outlined in the discharge instructions. The patient and/or caregivers are agreeable to this plan of care and follow-up instructions have been explained in detail. The patient and/or caregivers have received these instructions in written form and have expressed an understanding of the discharge instructions. The patient and/or caregivers are aware that any significant change of condition or worsening of symptoms should prompt immediate return to this or the closest emergency department or call to 911. Hannah Disclaimer: Hannah Disclaimer: This electronic medical record was generated, in whole or in part, using a voice recognition dictation system. Departure Departure Impression: Primary Impression: Weakness Additional Impressions: Failure to thrive Hypomagnesemia Disposition: 01 HOME / SELF CARE / HOMELESS Condition: STABLE Referrals: VIVIANE CURTIS MD (PCP) follow up in 24-48 hours to repeat magnesium level with pcp Patient Instructions: Failure to Thrive, Weakness Additional Instructions: EMERGENCY DEPARTMENT GENERAL DISCHARGE INSTRUCTIONS Thank you for coming to [facility] Emergency Department (ED) today and trusting us with you care. We trust that you had a positive experience in our Emergency Department. If you wish to speak to the department management, you may call the Director at [phone]. YOUR FOLLOW UP INSTRUCTIONS ARE FOLLOWS: 1. Do you have a private Doctor? If you do not have a private doctor, please ask for a resource list of physicians or clinics that may be able to assist you with follow up care. 2. The Emergency Physicain has interpreted your x-rays. The X-Ray specialist will also review them. If there is a change in the findings, you will be notified in 48 hours when at all possible. 3. A lab test or culture has been done, your results will be reviewed and you will be notified if you need a change in treatment. ADDITIONAL INSTRUCTIONS AND INFORMATION: 1. Your care today has been supervised by a physician who is specially trained in emergency care. Many problems require more than one evaluation for a complete diagnosis and treatment. We recommend that you schedule your follow up appointment as recommended to ensure complete treatment of you illness or injury. If you are unable to obtain follow up care and continue to have a problem, or if your condition worsens, we recommend that you return to the ED. 2. We are not able to safely determine your condition over the phone nor are we able to give sound medical advice over the phone. For these safety reasons, if you call for medical advice we will ask you to come to the ED for further evaluation. 3. If you have any questions regarding these discharge instructions please call the ED at [phone]. SAFETY INFORMATION: In the interest of safety, wellness, and injury prevention; we encourage you to wear your sealbelt, if you smoke; quite smoking, and we encourage family to use a protective helmet for bicycling and other sporting events that present an increased risk for head injury. IF YOUR SYMPTOMS WORSEN OR NEW SYMPTOMS DEVELOP, OR YOU HAVE CONCERNS ABOUT YOUR CONDITION; OR IF YOUR CONDITION WORSENS WHILE YOU ARE WAITING FOR YOUR FOLLOW UP APPOINTMENT; EITHER CONTACT YOUR PRIMARY CARE DOCTOR, THE PHYSICIAN WHOSE NAME AND NUMBER YOU WERE GIVEN, OR RETURN TO THE ED IMMEDIATELY. PRIMO GO DO Jan 16, 2021 14:46
[2021-01-16 14:53] LABS: BASO % 0 % (0-3); EOS # 0.1 x10^3/uL (0.0-0.7); EOS % 1 % (0-3); HEMATOCRIT 36.7 % (39.0-53.0); HEMOGLOBIN 12.7 g/dL (13.0-17.5); LYMPH # 0.4 x10^3/uL (1.0-4.8); LYMPH % 7 % (24-48); MEAN CORPUSCULAR HEMOGLOBIN 33 pg (25-35); MEAN CORPUSCULAR HGB CONC 35 g/dL (31-37); MEAN CORPUSCULAR VOLUME 97 fL (79-100); MONO # 0.7 x10^3/uL (0.0-1.1); MONO % 13 % (0-9); NEUT # 4.2 x10^3/uL (1.8-7.7); NEUT % 79 % (31-73); PLATELET COUNT 270 x10^3/uL (140-400); WHITE BLOOD COUNT 5.3 x10^3/uL (4.0-11.0)
[2021-01-16] MEDS ORDERED: IV NORMAL SALINE 500ML BAG 500 ML IV ONE (15:00)
--- NOTE | 2021-01-16 15:13 | EKG ---
[facility] [address] [place] [address] Test Date: 2021-01-16 Test Time: 13:39:47 Pat Name: CAITLIN SAUL Department: Room: Gender: M Junior Sales Assistant: : 1945 Requested By: PRIMO POTTER Order Number: [id number] Reading MD: Measurements Intervals [place] Rate: 63 P: 48 [place]: 166 QRS: 60 QRSD: 132 T: 24 QT: 430 QTc: 443 Interpretive Statements SINUS RHYTHM RIGHT BUNDLE BRANCH BLOCK ABNORMAL ECG RI6.02 No previous ECG available for comparison
[2021-01-16 15:57] LABS: CALCIUM 8.8 mg/dL (8.5-10.1); CREATININE 4.3 mg/dL (0.7-1.3); GFR 13.5; POTASSIUM 3.7 mmol/L (3.5-5.1)
[2021-01-16 16:03] LABS: ALBUMIN 2.7 g/dL (3.4-5.0); ALBUMIN/GLOBULIN RATIO 0.8 (1.0-1.7); MAGNESIUM 1.5 mg/dL (1.8-2.4); PHOSPHORUS 4.3 mg/dL (2.6-4.7); TOTAL BILIRUBIN 0.8 mg/dL (0.2-1.0); TOTAL PROTEIN 6.2 g/dL (6.4-8.2)
[2021-01-16 16:27] LABS: BILIRUBIN,URINE NEGATIVE (NEG); CLARITY,URINE CLEAR; COLOR,URINE YELLOW; NITRITE,URINE NEGATIVE (NEG); PH,URINE 5.5 (<5.0-8.0); PROTEIN,URINE 100 mg/dL (NEG-TRACE); UROBILINOGEN,URINE 0.2 mg/dL (0.2 mg/dL)
[2021-01-16 16:32] LABS: AMPHETAMINE/METHAMPHETAMINE NEG (NEG); BARBITURATES NEG (NEG); BENZODIAZEPINES NEG (NEG); CANNABINOIDS NEG (NEG); COCAINE NEG (NEG); METHADONE NEG (NEG); OPIATES NEG (NEG); PHENCYCLIDINE NEG (NEG)
[2021-01-16 16:36] LABS: BACTERIA,URINE 0 /HPF (0-FEW); RBC,URINE 0 /HPF (0-2)
[2021-01-16] MEDS ORDERED: MAGNESIUM SULFATE 1GM 100 ML IV ONE (17:00)
[2021-01-16 17:05] LABS: ACETAMIN < 2 mcg/ml (10-30); SALIC < 2.8 mg/dL (2.8-20.0)
[2021-01-16 17:45] VITALS: BP 114/58
== END 2021-01-16 19:25 | disposition home or self-care (01) ==
LOC: ER 12:08
DX: R53.1 Weakness (principal); R62.7 Adult failure to thrive; Z68.20 Body mass index [BMI] 20.0-20.9, adult; E83.42 Hypomagnesemia; E78.00 Pure hypercholesterolemia, unspecified; I12.9 Hypertensive chronic kidney disease with stage 1 through stage 4 chronic kidney disease, or unspecified chronic kidney disease; N18.9 Chronic kidney disease, unspecified; K21.9 Gastro-esophageal reflux disease without esophagitis; F03.90 Unspecified dementia, unspecified severity, without behavioral disturbance, psychotic disturbance, mood disturbance, and anxiety; E03.9 Hypothyroidism, unspecified; Z95.0 Presence of cardiac pacemaker; Z88.5 Allergy status to narcotic agent; Z88.7 Allergy status to serum and vaccine
CPT/HCPCS: 36415; 71045; 80053; 80307; 80329; 81001; 82550; 83735; 83880; 84100; 84484; 85025; 93005; 96361; 96365; 99285; J3475; J7040; G0480

== ENCOUNTER → 2021-03-09 | Outpatient (CLI) | payer MEDICARE ==
--- NOTE | 2021-03-09 15:38 | CARD ---
MR#: [id number] Date of Study: 03/09/2021 Ordering Physician: LINA FRITZ, Referring Physician: LINA FRITZ Tech: Ann Gallegos [facility] APPROVED REPORT EXAM: Two-dimensional and M-mode echocardiogram with Doppler and color Doppler. Other Information Quality : AverageHR: 66bpm Rhythm : NSR INDICATION Cardiac Disease: RISK FACTORS Hypertension Hyperlipidemia 2D DIMENSIONS RVDd2.6 (2.9-3.5cm)Left Atrium(2D)3.1 (1.6-4.0cm) IVSd0.8 (0.7-1.1cm)Aortic Root(2D)2.9 (2.0-3.7cm) LVDd3.8 (3.9-5.9cm)LVOT Diameter1.8 (1.8-2.4cm) PWd0.8 (0.7-1.1cm)LVDs2.6 (2.5-4.0cm) FS (%) 30.9 %SV36.9 ml LVEF(%)59.3 (>50%) Aortic Valve AoV Peak Elfego.127.4cm/sAoV VTI28.6cm AO Peak GR.6.5mmHgLVOT Peak Elfego.117.6cm/s AO Mean GR.3mmHgAVA (VMAX)2.29cm2 Mitral Valve MV E Pcvuyobs93.2cm/sMV DECEL TWDM485ft MV A Nwwyfusi02.7cm/sE/A Ratio0.6 Tricuspid Valve TR P. Jovgdqku439hl/sTR Peak Gr.17mmHg Pulmonary Vein S1 Eluenklk32.2cm/sD2 Ylwhsidm05.2cm/s PVa paedvfoa751sqvo LEFT VENTRICLE The left ventricle is normal size. There is normal left ventricular wall thickness. The left ventricu lar systolic function is normal. Estimated ejection fraction 55-60%. There is normal LV segmental wal l motion. Transmitral Doppler flow pattern is Grade I-abnormal relaxation pattern. RIGHT VENTRICLE The right ventricle is normal size. There is normal right ventricular wall thickness. The right ventr icular systolic function is normal. ATRIA The left atrium size is normal. The right atrium size is normal. The interatrial septum is intact wit h no evidence for an atrial septal defect or patent foramen ovale as noted on 2-D or Doppler imaging. AORTIC VALVE The aortic valve is normal in structure and function. Doppler and Color Flow revealed trace aortic re gurgitation. There is no significant aortic valvular stenosis. MITRAL VALVE The mitral valve is normal in structure and function. There is no evidence of mitral valve prolapse. There is no mitral valve stenosis. Doppler and Color-flow revealed mild mitral regurgitation. TRICUSPID VALVE The tricuspid valve is normal in structure and function. Doppler and Color Flow revealed trace tricus pid regurgitation. Estimated PAP 20 mmHg. PULMONIC VALVE The pulmonary valve is normal in structure and function. Doppler and Color Flow revealed moderate pul vaughn valvular regurgitation. GREAT VESSELS The aortic root is normal in size. The ascending aorta is normal in size. The IVC is normal in size a nd collapses >50% with inspiration. PERICARDIAL EFFUSION There is no evidence of significant pericardial effusion. Critical Notification Critical Value: No <Conclusion> The left ventricular systolic function is normal. Estimated ejection fraction 55-60%. There is normal LV segmental wall motion. Transmitral Doppler flow pattern is Grade I-abnormal relaxation pattern. Mild mitral regurgitation. Trace tricuspid regurgitation. Estimated PAP 20 mmHg. There is no evidence of significant pericardial effusion. Signed by : Lina Fritz, Electronically Approved : 03/09/2021 15:38:13
== END ==
LOC: ECHO 09:36
PROVIDERS: ATTEND Internal Medicine Cardiovascular Disease
DX: I08.8 Other rheumatic multiple valve diseases (principal); I49.5 Sick sinus syndrome
CPT/HCPCS: 93306

== ENCOUNTER 2021-03-13 12:25 | Observation (INO) | payer MEDICARE ==
[~2021-03-13] VITALS: Ht 162.6 cm; Wt 57.6 kg
--- NOTE | 2021-03-13 13:25 | RAD ---
AP chest. HISTORY: Syncope AP view was taken of the chest. Comparison is made with a study from January. There is a left pacemaker with atrial and ventricular pacing leads without change. Lungs are free of acute infiltrates. There i s no pleural effusion. Heart is normal in size. IMPRESSION: 1. No acute infiltrates. Electronically signed by: Jeremiah Street MD (03/13/2021 1:22 PM) [facility]
[2021-03-13 13:45] LABS: BASO % 0 % (0-3); EOS # 0.3 x10^3/uL (0.0-0.7); EOS % 4 % (0-3); HEMATOCRIT 30.7 % (39.0-53.0); HEMOGLOBIN 10.6 g/dL (13.0-17.5); LYMPH # 0.3 x10^3/uL (1.0-4.8); LYMPH % 4 % (24-48); MEAN CORPUSCULAR HEMOGLOBIN 34 pg (25-35); MEAN CORPUSCULAR HGB CONC 34 g/dL (31-37); MEAN CORPUSCULAR VOLUME 100 fL (79-100); MONO # 0.8 x10^3/uL (0.0-1.1); MONO % 11 % (0-9); NEUT # 5.9 x10^3/uL (1.8-7.7); NEUT % 81 % (31-73); PLATELET COUNT 271 x10^3/uL (140-400); RED BLOOD COUNT 3.08 x10^6/uL (4.30-5.70); RED CELL DISTRIBUTION WIDTH 13.7 % (11.5-14.5); WHITE BLOOD COUNT 7.4 x10^3/uL (4.0-11.0)
[2021-03-13 13:54] LABS: CALCIUM 8.1 mg/dL (8.5-10.1); GFR 14.7; POTASSIUM 4.1 mmol/L (3.5-5.1)
[2021-03-13 14:00] LABS: ALBUMIN/GLOBULIN RATIO 0.6 (1.0-1.7); MAGNESIUM 1.6 mg/dL (1.8-2.4); TOTAL BILIRUBIN 0.4 mg/dL (0.2-1.0); TOTAL PROTEIN 5.2 g/dL (6.4-8.2)
[2021-03-13 14:24] LABS: % BASOS 1 % (0-3); % EOS 2 % (0-5); % LYMPHS 4 % (24-48); % MONOS 7 % (0-10); % SEGS 86 % (35-66); PLT ESTIMATE ADEQUATE (ADEQUATE)
--- NOTE | 2021-03-13 14:45 | EKG ---
[facility] [address] [place] [address] Test Date: 2021-03-13 Test Time: 14:02:54 Pat Name: CAITLIN SAUL Department: Room: Gender: Patient Safety Attendant: : 1945 Requested By: BRAYAN BUCKLEY Order Number: [id number] Reading MD: Measurements Intervals [place] Rate: 60 P: 35 GA: 216 QRS: 28 QRSD: 132 T: 26 QT: 470 QTc: 475 Interpretive Statements SINUS RHYTHM RIGHT BUNDLE BRANCH BLOCK QRS(T) CONTOUR ABNORMALITY CONSIDER ANTEROSEPTAL MYOCARDIAL DAMAGE ABNORMAL ECG RI6.01 No previous ECG available for comparison
--- NOTE | 2021-03-13 15:21 | ED.ADGEN ---
Past Medical History Past Medical History: Anemia, Arrhythmia, Dementia, High Cholesterol, Hypertension, Renal Disease, Other Additional Past Medical Histor: WET MAC D, BURNS PAIUTE Past Surgical History: Pacemaker Additional Past Surgical Histo: HERNIA Smoking Status: Never Smoker Alcohol Use: Occasionally Drug Use: None General Adult EDM: Chief Complaint: SYNCOPE HPI: HPI: Patient is 75-year-old male who presents to the emergency room after having a syncopal episode while shopping at [employer]. Patient does not remember going to [employer] or having a syncopal episode. He states that he feels fatigued but otherwise normal. He denies any chest pain, headache, weakness, numbness, shortness of breath. Upon patient's arrival she states that they were shopping when he suddenly got this blank look over his face and then passed out. She does not believe he hit his head. She states is unusual for him not to remember what they were doing. He does have some mild dementia. Review of Systems: Review of Systems: Complete ROS is negative unless otherwise documented in HPI Allergies: Allergies: Allergies Coded Allergies Type Severity Reaction Last Updated Verified Influenza Virus Vaccines Allergy Intermediate GUILLAIN BARRE SYMPTOMS 08/04/19 Yes diphenhydramine Adverse Reaction Mild CHANGE IN PERSONALITY 08/04/19 Yes Physical Exam: PE: General: Awake, alert, NAD. Well Nourished, well hydrated. Cooperative HEENT: Atraumatic, EOMI, PERRL, airway patent, moist oral mucosa Neck: Supple, trachea midline Respiratory: CTA bilaterally, normal effort, no wheezing/crackles CV: RRR, no murmur, cap refill <2 GI: Soft, nondistended, nontender, no masses MSK: No obvious deformities Skin: Warm, dry, intact Neuro: A&O x3, speech NL, sensory and motor grossly intact, no focal deficits, mild confusion Psych: Normal affect, normal mood, not suicidal or homicidal Current Patient Data: Labs: Laboratory Tests Test 03/13/21 13:20 White Blood Count 7.4 x10^3/uL (4.0-11.0) Red Blood Count 3.08 x10^6/uL (4.30-5.70) L Hemoglobin 10.6 g/dL (13.0-17.5) L Hematocrit 30.7 % (39.0-53.0) L Mean Corpuscular Volume 100 fL (79-100) Mean Corpuscular Hemoglobin 34 pg (25-35) Mean Corpuscular Hemoglobin Concent 34 g/dL (31-37) Red Cell Distribution Width 13.7 % (11.5-14.5) Platelet Count 271 x10^3/uL (140-400) Neutrophils (%) (Auto) 81 % (31-73) H Lymphocytes (%) (Auto) 4 % (24-48) L Monocytes (%) (Auto) 11 % (0-9) H Eosinophils (%) (Auto) 4 % (0-3) H Basophils (%) (Auto) 0 % (0-3) Neutrophils # (Auto) 5.9 x10^3/uL (1.8-7.7) Lymphocytes # (Auto) 0.3 x10^3/uL (1.0-4.8) L Monocytes # (Auto) 0.8 x10^3/uL (0.0-1.1) Eosinophils # (Auto) 0.3 x10^3/uL (0.0-0.7) Basophils # (Auto) 0.0 x10^3/uL (0.0-0.2) Segmented Neutrophils % 86 % (35-66) H Lymphocytes % 4 % (24-48) L Monocytes % 7 % (0-10) Eosinophils % 2 % (0-5) Basophils % 1 % (0-3) Platelet Estimate Adequate (ADEQUATE) Sodium Level 135 mmol/L (136-145) L Potassium Level 4.1 mmol/L (3.5-5.1) Chloride Level 103 mmol/L (98-107) Carbon Dioxide Level 30 mmol/L (21-32) Anion Gap 2 (6-14) L Blood Urea Nitrogen 57 mg/dL (8-26) H Creatinine 4.0 mg/dL (0.7-1.3) H Estimated GFR (Cockcroft-Gault) 14.7 BUN/Creatinine Ratio 14 (6-20) Glucose Level 137 mg/dL (70-99) H Calcium Level 8.1 mg/dL (8.5-10.1) L Magnesium Level 1.6 mg/dL (1.8-2.4) L Total Bilirubin 0.4 mg/dL (0.2-1.0) Aspartate Amino Transferase (AST) 36 U/L (15-37) Alanine Aminotransferase (ALT) 41 U/L (16-63) Alkaline Phosphatase 130 U/L (46-116) H Troponin I Quantitative < 0.017 ng/mL (0.000-0.055) YG-Jif-U-Type Natriuretic Peptide 798 pg/mL (0-449) H Total Protein 5.2 g/dL (6.4-8.2) L Albumin 2.0 g/dL (3.4-5.0) L Albumin/Globulin Ratio 0.6 (1.0-1.7) L Laboratory Tests 03/13/21 13:20 Laboratory Tests 03/13/21 13:20 Vital Signs: Vital Signs Date Time Temp Pulse Resp B/P (MAP) Pulse Ox O2 Delivery O2 Flow Rate FiO2 03/13/21 15:11 98.2 60 18 109/58 99 Room Air 98.2 EKG: EKG: [] Heart Score: C/O Chest Pain: N/A Risk Factors: Risk Factors: DM, Current or recent (<one month) smoker, HTN, HLP, family history of CAD, obesity. Risk Scores: Score 0 - 3: 2.5% MACE over next 6 weeks - Discharge Home Score 4 - 6: 20.3% MACE over next 6 weeks - Admit for Clinical Observation Score 7 - 10: 72.7% MACE over next 6 weeks - Early Invasive Strategies Radiology/Procedures: Radiology/Procedures: [] Course & Med Decision Making: Course & Med Decision Making Pertinent Labs and Imaging studies reviewed. (See chart for details) Patient is 75-year-old male who presents to the emergency room after having a syncopal episode while shopping. Upon arrival to the emergency room patient does appear to be stable. EMS brought in to 12 leads. 1 in which he is atrial paced and 1 which he is in normal sinus rhythm. Initial blood pressure was significantly hypotensive. He was given fluids prior to arrival and blood pressure had improved. Patient does have some confusion and does not remember the event. He does not have anything that sounds like seizure activity. CT head is normal. Work-up overall is unremarkable. Patient will be admitted for observation and evaluation by cardiology. Hannah Disclaimer: Dragvidhya Disclaimer: This electronic medical record was generated, in whole or in part, using a voice recognition dictation system. Departure Departure Impression: Primary Impression: Syncope and collapse Disposition: ADMITTED INPATIENT Condition: IMPROVED Referrals: VIVIANE CURTIS MD (PCP) BRAYAN BUCKLEY MD Mar 13, 2021 15:21
--- NOTE | 2021-03-13 15:22 | RAD ---
PQRS Compliance Statement: One or more of the following individualized dose reduction techniques were utilized for this examinat ion: 1. Automated exposure control 2. Adjustment of the mA and/or kV according to patient size 3. Use of iterative reconstruction technique CT head without contrast 03/13/2021 2:55 PM INDICATION: Confusion COMPARISON: CT head 10/05/2019 TECHNIQUE: Multiple axial CT images of the head were obtained from skull base through the vertex with out intravenous contrast. FINDINGS: Head: Ventricles, sulci and basal cisterns are prominent compatible with moderate generalized cerebral volu me loss. Low-attenuation in the periventricular white matter is suggestive of chronic small vessel is chemic changes. There is no hydrocephalus. Romero-white matter differentiation is normal. There is no a cute intracranial hemorrhage. There is no mass, mass effect or midline shift. Posterior fossa is norm al in appearance. Visualized portions of the orbits are normal with exception of bilateral lens replacement. Paranasal sinuses are well aerated. Mastoid air cells are well aerated. Scalp and calvaria are normal. IMPRESSION: No acute intracranial hemorrhage. Moderate generalized cerebral volume loss. Low-attenuation in the periventricular white matter is suggestive of chronic small vessel ischemic ch anges. Electronically signed by: Alejandra Tamayo MD (03/13/2021 3:19 PM) [id number]
[2021-03-13 19:59] VITALS: BP 155/79
[2021-03-13] MEDS ORDERED: MAGN400T5 PO (21:15)
[2021-03-13] MEDS ORDERED: LISI10TA16 PO (21:15)
[2021-03-13] MEDS ORDERED: CARV12.511 PO (21:15)
[2021-03-13] MEDS ORDERED: LEVO75TA5 PO (21:15)
[2021-03-13] MEDS ORDERED: PANT40TA77 PO (21:16)
[2021-03-13] MEDS ORDERED: LEVO75TA76 PO (21:16)
--- NOTE | 2021-03-13 22:15 | PDOC1 ---
History and Physical Date of Admission Date of Admission DATE: 03/13/21 TIME: 22:09 Source Source: Chart review History of Present Illness History of Present Illness Mr. Steinberg is 75-year-old male admit from emergency room after a syncopal episode today. "I've had another one of my spells again" Today it happened while shopping at [employer]. he has poor recall of the event, but has dementia. his said he looked strange, face went flat and hje went out. He denies any chest pain, headache, weakness, numbness, shortness of breath. She does not believe he hit his head. He does have some mild dementia, but that he should have good recall of most events Past Medical History Cardiovascular: HTN, Hyperlipidemia Heme/Onc: Anemia NOS, Other Renal/: Chronic renal insuff, Benign prostatic enlarg., Other Past Surgical History Past Surgical History: Pacemaker, Cataract Removal, Hernia Repair, Ton sillectomy, Other Family History Family History: Heart Disease Social History Smoke: No ALCOHOL: occassional Drugs: None Current Problem List Problem List Problems Medical Problems: (1) Syncope and collapse Status: Acute Current Medications Current Medications Active Scripts Active Reported Euthyrox (Levothyroxine Sodium) 75 Mcg Tablet 1 Tab PO DAILY Pantoprazole Sodium (Pantoprazole Sodium) 40 Mg Tablet.dr 40 Mg PO DAILYAC Magnesium Oxide 400 Mg Tablet 1 Tab PO DAILY Lisinopril 10 Mg Tablet 10 Mg PO DAILY Carvedilol (Carvedilol) 12.5 Mg Tablet 12.5 Mg PO BIDWMEALS Namenda (Memantine Hcl) 10 Mg Tablet 0.5 Tab PO BID Renal-Kwesi Tablet (Folic Acid/Vit Bcomp,C) 0.8 Mg Tablet 1 Tab PO DAILY 30 Days Fish Oil Conc 1,000 mg Softgel (Rochelle-3/Dha/Epa/Fish Oil) 1,000 Mg Capsule 1,000 Mg PO DAILY Atorvastatin Calcium 40 Mg Tablet 40 Mg PO QHS Allergies Allergies: Coded Allergies: Influenza Virus Vaccines (Verified Allergy, Intermediate, GUILLAIN BARRE SYMPTOMS, 08/04/19) diphenhydramine (Verified Adverse Reaction, Mild, CHANGE IN PERSONALITY, 08/04/19) CHANGE IN PERSONALITY ROS General: No: Chills, Night Sweats, Fatigue, Malaise, Appetite, Other PSYCHOLOGICAL ROS: No: Anxiety, Behavioral Disorder, Concentration difficultie, Decreased libido, Depression, Disorientation, Hallucinations, Hostility, Irritablity, Memory difficulties, Mood Swings, Obsessive thoughts, Physical abuse, Sexual abuse, Sleep disturbances, Suicidal ideation, Other Eyes: No Blurry vision, No Decreased vision, No Double vision, No Dry eyes, No Excessive tearing, No Eye Pain, No Itchy Eyes, No Loss of vision, No Photophobia, No Scotomata, No Uses contacts, No Uses glasses, No Other HEENT: No: Heacaches, Visual Changes, Hearing change, Nasal congestion, Nasal discharge, Oral lesions, Sinus pain, Sore Throat, Epistaxis, Sneezing, Snoring, Tinnitus, Vertigo, Vocal changes, Other Respiratory: No: Cough, Hemoptysis, Orthopnea, Pleuritic Pain, Shortness of breath, SOB with excertion, Sputum Changes, Stridor, Tachypnea, Wheezing, Other Cardiovascular: No Chest Pain, No Palpitations, No Orthopnea, No Paroxysmal Noc. Dyspnea, No Edema, No Lt Headedness, No Other Gastrointestinal: No Vomiting, No Abdominal Pain, No Diarrhea, No Constipation, No Melena, No Hematochezia, No Other Genitourinary: No Dysuria, No Frequency, No Incontinence, No Hematuria, No Retention, No Discharge, No Urgency, No Pain, No Flank Pain, No Other, No , No , No , No , No , No , No Musculoskeletal: No Gait Disturbance, No Joint Pain, No Joint Stiffness, No Grace nt Swelling, No Muscle Pain, No Muscular Weakness, No Pain In:, No Swelling In:, No Other Neurological: No Behavorial Changes, No Bowel/Bladder ControlChng, No Confusion, No Dizziness, No Gait Disturbance, No Headaches, No Impaired Co ord/balance, No Memory Loss, No Numbness/Tingling, No Seizures, No Speech Problems, No Tremors, No Visual Changes, No Weakness, No Other Skin: No Dry Skin, No Eczema, No Hair Changes, No Lumps, No Mole Changes, No Mottling, No Nail Changes, No Pruritus, No Rash, No Skin Lesion Changes, No Other, No Acne Physical Exam General: Alert, Cooperative, No acute distress, Other (oriented 2/3) HEENT: Atraumatic, PERRLA, Mucous membr. moist/pink Lungs: Clear to auscultation, Normal air movement Heart: irregularly irregular Abdomen: Normal bowel sounds, Soft Rectal Exam: not examined Extremities: No edema, Normal pulses Neuro: Normal speech, Normal tone Vitals Vitals Vital Signs Date Time Temp Pulse Resp B/P (MAP) Pulse Ox O2 Delivery O2 Flow Rate FiO2 03/13/21 19:59 97.8 65 18 155/79 (104) 100 Room Air 97.8 Labs Labs Laboratory Tests Test 03/13/21 13:20 White Blood Count 7.4 x10^3/uL (4.0-11.0) Red Blood Count 3.08 x10^6/uL (4.30-5.70) Hemoglobin 10.6 g/dL (13.0-17.5) Hematocrit 30.7 % (39.0-53.0) Mean Corpuscular Volume 100 fL (79-100) Mean Corpuscular Hemoglobin 34 pg (25-35) Mean Corpuscular Hemoglobin Concent 34 g/dL (31-37) Red Cell Distribution Width 13.7 % (11.5-14.5) Platelet Count 271 x10^3/uL (140-400) Neutrophils (%) (Auto) 81 % (31-73) Lymphocytes (%) (Auto) 4 % (24-48) Monocytes (%) (Auto) 11 % (0-9) Eosinophils (%) (Auto) 4 % (0-3) Basophils (%) (Auto) 0 % (0-3) Neutrophils # (Auto) 5.9 x10^3/uL (1.8-7.7) Lymphocytes # (Auto) 0.3 x10^3/uL (1.0-4.8) Monocytes # (Auto) 0.8 x10^3/uL (0.0-1.1) Eosinophils # (Auto) 0.3 x10^3/uL (0.0-0.7) Basophils # (Auto) 0.0 x10^3/uL (0.0-0.2) Segmented Neutrophils % 86 % (35-66) Lymphocytes % 4 % (24-48) Monocytes % 7 % (0-10) Eosinophils % 2 % (0-5) Basophils % 1 % (0-3) Platelet Estimate Adequate (ADEQUATE) Sodium Level 135 mmol/L (136-145) Potassium Level 4.1 mmol/L (3.5-5.1) Chloride Level 103 mmol/L (98-107) Carbon Dioxide Level 30 mmol/L (21-32) Anion Gap 2 (6-14) Blood Urea Nitrogen 57 mg/dL (8-26) Creatinine 4.0 mg/dL (0.7-1.3) Estimated GFR (Cockcroft-Gault) 14.7 BUN/Creatinine Ratio 14 (6-20) Glucose Level 137 mg/dL (70-99) Calcium Level 8.1 mg/dL (8.5-10.1) Magnesium Level 1.6 mg/dL (1.8-2.4) Total Bilirubin 0.4 mg/dL (0.2-1.0) Aspartate Amino Transf (AST/SGOT) 36 U/L (15-37) Alanine Aminotransferase (ALT/SGPT) 41 U/L (16-63) Alkaline Phosphatase 130 U/L (46-116) Troponin I Quantitative < 0.017 ng/mL (0.000-0.055) DE-Tnc-H-Type Natriuretic Peptide 798 pg/mL (0-449) Total Protein 5.2 g/dL (6.4-8.2) Albumin 2.0 g/dL (3.4-5.0) Albumin/Globulin Ratio 0.6 (1.0-1.7) Laboratory Tests Test 03/13/21 13:20 White Blood Count 7.4 x10^3/uL (4.0-11.0) Red Blood Count 3.08 x10^6/uL (4.30-5.70) Hemoglobin 10.6 g/dL (13.0-17.5) Hematocrit 30.7 % (39.0-53.0) Mean Corpuscular Volume 100 fL (79-100) Mean Corpuscular Hemoglobin 34 pg (25-35) Mean Corpuscular Hemoglobin Concent 34 g/dL (31-37) Red Cell Distribution Width 13.7 % (11.5-14.5) Platelet Count 271 x10^3/uL (140-400) Neutrophils (%) (Auto) 81 % (31-73) Lymphocytes (%) (Auto) 4 % (24-48) Monocytes (%) (Auto) 11 % (0-9) Eosinophils (%) (Auto) 4 % (0-3) Basophils (%) (Auto) 0 % (0-3) Neutrophils # (Auto) 5.9 x10^3/uL (1.8-7.7) Lymphocytes # (Auto) 0.3 x10^3/uL (1.0-4.8) Monocytes # (Auto) 0.8 x10^3/uL (0.0-1.1) Eosinophils # (Auto) 0.3 x10^3/uL (0.0-0.7) Basophils # (Auto) 0.0 x10^3/uL (0.0-0.2) Segmented Neutrophils % 86 % (35-66) Lymphocytes % 4 % (24-48) Monocytes % 7 % (0-10) Eosinophils % 2 % (0-5) Basophils % 1 % (0-3) Platelet Estimate Adequate (ADEQUATE) Sodium Level 135 mmol/L (136-145) Potassium Level 4.1 mmol/L (3.5-5.1) Chloride Level 103 mmol/L (98-107) Carbon Dioxide Level 30 mmol/L (21-32) Anion Gap 2 (6-14) Blood Urea Nitrogen 57 mg/dL (8-26) Creatinine 4.0 mg/dL (0.7-1.3) Estimated GFR (Cockcroft-Gault) 14.7 BUN/Creatinine Ratio 14 (6-20) Glucose Level 137 mg/dL (70-99) Calcium Level 8.1 mg/dL (8.5-10.1) Magnesium Level 1.6 mg/dL (1.8-2.4) Total Bilirubin 0.4 mg/dL (0.2-1.0) Aspartate Amino Transf (AST/SGOT) 36 U/L (15-37) Alanine Aminotransferase (ALT/SGPT) 41 U/L (16-63) Alkaline Phosphatase 130 U/L (46-116) Troponin I Quantitative < 0.017 ng/mL (0.000-0.055) TE-Hsy-R-Type Natriuretic Peptide 798 pg/mL (0-449) Total Protein 5.2 g/dL (6.4-8.2) Albumin 2.0 g/dL (3.4-5.0) Albumin/Globulin Ratio 0.6 (1.0-1.7) VTE Prophylaxis Ordered VTE Prophylaxis Devices: Yes VTE Pharmacological Prophylaxi: Yes Assessment/Plan Assessment/Plan syncope prior pacemaker placement by , admit, tele, cv consult Severe malnutrition, add supplement hypomag, IV replace, renal patient on PO End Stage Renal Disease on peritoneal dialysis SSS s/p pacemaker - mild dementia htn lipids, ' hypothyroid Justifications for Admission Other Justification CHARLENE COLEMAN MD Mar 13, 2021 22:15
[2021-03-13] MEDS: HEPARIN for SUB-Q USE 5,000 UNIT/ML VIAL. SQ SCH (22:45)
[2021-03-13 23:00] VITALS: BP 146/66
[2021-03-13] MEDS ORDERED: MAGNESIUM SULFATE 2GM 50 ML IV ONE (23:00)
[2021-03-13] MEDS ORDERED: ATORVASTATIN CALCIUM 40 MG TABLET. PO SCH (23:00)
[2021-03-14 03:20] VITALS: BP 137/69
[2021-03-14] MEDS ORDERED: LEVOTHYROXINE 75 MCG TABLET PO SCH (06:00)
[2021-03-14] MEDS: HEPARIN for SUB-Q USE 5,000 UNIT/ML VIAL. SQ SCH ×2 (06:29→14:00)
[2021-03-14 07:00] VITALS: BP 117/59
[2021-03-14] MEDS ORDERED: PANTOPRAZOLE 40 MG TABLET.DR. PO SCH (07:30)
[2021-03-14] MEDS ORDERED: CARVEDILOL 12.5 MG TABLET. PO SCH (08:00)
[2021-03-14] MEDS ORDERED: LISINOPRIL 10 MG TABLET PO SCH (09:00)
[2021-03-14] MEDS ORDERED: MAGNESIUM OXIDE 400 MG TABLET PO SCH (09:00)
--- NOTE | 2021-03-14 09:44 | PDOC2 ---
CONSULT Date of Consult Date of Consult DATE: 03/14/21 TIME: 09:41 Reason for Consult Reason for Consult: ESRD on PD Source Source: Chart review History of Present Illness Reason for Visit: Patient is 75-year-old CM who presents to the emergency room after having a syncopal episode while shopping at [employer]. Patient does not remember going to [employer] or having a syncopal episode. He states that he feels fatigued but otherwise normal. He denies any chest pain, headache, weakness, numbness, shortness of breath. Upon patient's arrival she states that they were shopping when he suddenly got this blank look over his face and then passed out. She does not believe he hit his head. She states is unusual for him not to remember what they were doing. He does have some mild dementia. Currently he denies any complaints. His is at bedside. Denies N/V/D. No CP pr SOB. NO F/C . Has RRF . No missed PD treatments Past Medical History Cardiovascular: HTN, Hyperlipidemia Heme/Onc: Anemia NOS, Other Renal/: Chronic renal insuff, Benign prostatic enlarg., Other Past Surgical History Past Surgical History: Pacemaker, Cataract Removal, Hernia Repair, Tonsillectomy, Other Family History Family History: Heart Disease Social History No ALCOHOL: occassional Drugs: None Lives: with Family Current Problem List Problem List Problems Medical Problems: (1) Syncope and collapse Status: Acute Current Medications Current Medications Current Medications Atorvastatin Calcium (Lipitor) 40 mg QHS PO Last administered on 03/13/21at 22:45; Start 03/13/21 at 23:00 Carvedilol (Coreg) 12.5 mg BIDWMEALS PO ; Start 03/14/21 at 08:00 Levothyroxine Sodium (Synthroid) 75 mcg DAILY06 PO Last administered on 03/14/21at 06:29; Start 03/14/21 at 06:00 Lisinopril (Prinivil) 10 mg DAILY PO ; Start 03/14/21 at 09:00 Magnesium Oxide (Magnesium Oxide) 400 mg DAILY PO ; Start 03/14/21 at 09:00 Pantoprazole Sodium (Protonix) 40 mg DAILYAC PO Last administered on 03/14/21at 06:28; Start 03/14/21 at 07:30 Magnesium Sulfate 50 ml @ 25 mls/hr 1X ONCE IV Last administered on 03/13/21at 22:46; Start 03/13/21 at 23:00; Stop 03/14/21 at 00:59; Status DC Enoxaparin Sodium (Lovenox Per Pharmacy Prophylaxis Dosing) 1 each PRN DAILY PRN MC SEE COMMENTS; Start 03/13/21 at 22:15 Heparin Sodium (Porcine) (Heparin Sodium) 5,000 unit Q8HRS SQ Last administered on 03/14/21at 06:29; Start 03/13/21 at 23:00 Active Scripts Active Reported Euthyrox (Levothyroxine Sodium) 75 Mcg Tablet 1 Tab PO DAILY Pantoprazole Sodium (Pantoprazole Sodium) 40 Mg Tablet.dr 40 Mg PO DAILYAC Magnesium Oxide 400 Mg Tablet 1 Tab PO DAILY Lisinopril 10 Mg Tablet 10 Mg PO DAILY Carvedilol (Carvedilol) 12.5 Mg Tablet 12.5 Mg PO BIDWMEALS Namenda (Memantine Hcl) 10 Mg Tablet 0.5 Tab PO BID Renal-Kwesi Tablet (Folic Acid/Vit Bcomp,C) 0.8 Mg Tablet 1 Tab PO DAILY 30 Days Fish Oil Conc 1,000 mg Softgel ([place]-3/Dha/Epa/Fish Oil) 1,000 Mg Capsule 1,000 Mg PO DAILY Atorvastatin Calcium 40 Mg Tablet 40 Mg PO QHS Allergies Allergies: Coded Allergies: Influenza Virus Vaccines (Verified Allergy, Intermediate, GUILLAIN BARRE SYMPTOMS, 08/04/19) diphenhydramine (Verified Adverse Reaction, Mild, CHANGE IN PERSONALITY, 08/04/19) CHANGE IN PERSONALITY ROS Review of System As per HPI, ret of the ROS is negative Physical Exam Physical Exam General: A No acute distress, propped up in bed HEENT: Atraumatic, PERRLA, EOMI, Mucous membr. moist/pink, Decreased Hearing (Chronic) Neck Supple Lungs: Clear to auscultation, Non labored Heart: S1S2, RRR, no thrills, no rubs, no gallops, no murmurs Abdomen: Normal bowel sounds, Soft, No tenderness, No hepatosplenomegaly, PD cath oresent, No e/o infection Extremities: No clubbing, No cyanosis, No edema, Skin: No rashes Neuro: Grossly Normal Psych/Mental Status: Mental status NL, Mood NL No Curry, No SP or CVA tenderness Vital Signs Vital Signs Date Time Temp Pulse Resp B/P (MAP) Pulse Ox O2 Delivery O2 Flow Rate FiO2 03/14/21 07:00 97.8 60 20 117/59 (78) 98 Room Air 97.8 Assessment & Plan ESRD- On PD ,No last fill , did'nt do PD last night , Continue APD while inpatient per home prescription , Sylvain Peralta Syncope - admitted in 2019 as well with syncope; Has pacemaker, follows with Dr. Aguirre as OP ;Cardiac eval pending Anemia- Hgb stable, BASSAM per protocol Hypertension BP stable SSS s/p pacemaker Labs Labs Laboratory Tests Test 03/13/21 13:20 White Blood Count 7.4 x10^3/uL (4.0-11.0) Red Blood Count 3.08 x10^6/uL (4.30-5.70) Hemoglobin 10.6 g/dL (13.0-17.5) Hematocrit 30.7 % (39.0-53.0) Mean Corpuscular Volume 100 fL (79-100) Mean Corpuscular Hemoglobin 34 pg (25-35) Mean Corpuscular Hemoglobin Concent 34 g/dL (31-37) Red Cell Distribution Width 13.7 % (11.5-14.5) Platelet Count 271 x10^3/uL (140-400) Neutrophils (%) (Auto) 81 % (31-73) Lymphocytes (%) (Auto) 4 % (24-48) Monocytes (%) (Auto) 11 % (0-9) Eosinophils (%) (Auto) 4 % (0-3) Basophils (%) (Auto) 0 % (0-3) Neutrophils # (Auto) 5.9 x10^3/uL (1.8-7.7) Lymphocytes # (Auto) 0.3 x10^3/uL (1.0-4.8) Monocytes # (Auto) 0.8 x10^3/uL (0.0-1.1) Eosinophils # (Auto) 0.3 x10^3/uL (0.0-0.7) Basophils # (Auto) 0.0 x10^3/uL (0.0-0.2) Segmented Neutrophils % 86 % (35-66) Lymphocytes % 4 % (24-48) Monocytes % 7 % (0-10) Eosinophils % 2 % (0-5) Basophils % 1 % (0-3) Platelet Estimate Adequate (ADEQUATE) Sodium Level 135 mmol/L (136-145) Potassium Level 4.1 mmol/L (3.5-5.1) Chloride Level 103 mmol/L (98-107) Carbon Dioxide Level 30 mmol/L (21-32) Anion Gap 2 (6-14) Blood Urea Nitrogen 57 mg/dL (8-26) Creatinine 4.0 mg/dL (0.7-1.3) Estimated GFR (Cockcroft-Gault) 14.7 BUN/Creatinine Ratio 14 (6-20) Glucose Level 137 mg/dL (70-99) Calcium Level 8.1 mg/dL (8.5-10.1) Magnesium Level 1.6 mg/dL (1.8-2.4) Total Bilirubin 0.4 mg/dL (0.2-1.0) Aspartate Amino Transf (AST/SGOT) 36 U/L (15-37) Alanine Aminotransferase (ALT/SGPT) 41 U/L (16-63) Alkaline Phosphatase 130 U/L (46-116) Troponin I Quantitative < 0.017 ng/mL (0.000-0.055) CF-Qjp-M-Type Natriuretic Peptide 798 pg/mL (0-449) Total Protein 5.2 g/dL (6.4-8.2) Albumin 2.0 g/dL (3.4-5.0) Albumin/Globulin Ratio 0.6 (1.0-1.7) Laboratory Tests Test 03/13/21 13:20 White Blood Count 7.4 x10^3/uL (4.0-11.0) Red Blood Count 3.08 x10^6/uL (4.30-5.70) Hemoglobin 10.6 g/dL (13.0-17.5) Hematocrit 30.7 % (39.0-53.0) Mean Corpuscular Volume 100 fL (79-100) Mean Corpuscular Hemoglobin 34 pg (25-35) Mean Corpuscular Hemoglobin Concent 34 g/dL (31-37) Red Cell Distribution Width 13.7 % (11.5-14.5) Platelet Count 271 x10^3/uL (140-400) Neutrophils (%) (Auto) 81 % (31-73) Lymphocytes (%) (Auto) 4 % (24-48) Monocytes (%) (Auto) 11 % (0-9) Eosinophils (%) (Auto) 4 % (0-3) Basophils (%) (Auto) 0 % (0-3) Neutrophils # (Auto) 5.9 x10^3/uL (1.8-7.7) Lymphocytes # (Auto) 0.3 x10^3/uL (1.0-4.8) Monocytes # (Auto) 0.8 x10^3/uL (0.0-1.1) Eosinophils # (Auto) 0.3 x10^3/uL (0.0-0.7) Basophils # (Auto) 0.0 x10^3/uL (0.0-0.2) Segmented Neutrophils % 86 % (35-66) Lymphocytes % 4 % (24-48) Monocytes % 7 % (0-10) Eosinophils % 2 % (0-5) Basophils % 1 % (0-3) Platelet Estimate Adequate (ADEQUATE) Sodium Level 135 mmol/L (136-145) Potassium Level 4.1 mmol/L (3.5-5.1) Chloride Level 103 mmol/L (98-107) Carbon Dioxide Level 30 mmol/L (21-32) Anion Gap 2 (6-14) Blood Urea Nitrogen 57 mg/dL (8-26) Creatinine 4.0 mg/dL (0.7-1.3) Estimated GFR (Cockcroft-Gault) 14.7 BUN/Creatinine Ratio 14 (6-20) Glucose Level 137 mg/dL (70-99) Calcium Level 8.1 mg/dL (8.5-10.1) Magnesium Level 1.6 mg/dL (1.8-2.4) Total Bilirubin 0.4 mg/dL (0.2-1.0) Aspartate Amino Transf (AST/SGOT) 36 U/L (15-37) Alanine Aminotransferase (ALT/SGPT) 41 U/L (16-63) Alkaline Phosphatase 130 U/L (46-116) Troponin I Quantitative < 0.017 ng/mL (0.000-0.055) WC-Nnj-J-Type Natriuretic Peptide 798 pg/mL (0-449) Total Protein 5.2 g/dL (6.4-8.2) Albumin 2.0 g/dL (3.4-5.0) Albumin/Globulin Ratio 0.6 (1.0-1.7) Review All relevant outside records, renal labs, imaging studies, telemetry/EKG's were reviewed. Images Images AP view was taken of the chest. Comparison is made with a study from January. There is a left pacemaker with atrial and ventricular pacing leads without change. Lungs are free of acute infiltrates. There is no pleural effusion. Heart is normal in size. IMPRESSION: 1. No acute infiltrates. BRENDAN WEISS MD Mar 14, 2021 09:44
[2021-03-14 11:00] VITALS: BP 122/53
--- NOTE | 2021-03-14 12:01 | PDOC ---
[employer] PROGRESS NOTE Date of Service DOS: DATE: 03/14/21 TIME: 11:36 Chief Complaint Chief Complaint Assessment & Plan Syncope - likely vasovagal given he was taking home BP meds after having them discontinued in addition to PD and responded well to minimal fluid challenge. Will monitor on tele and consult cardiology to r/o cardiac etiology ESRD- On PD Continue APD while inpatient -using 1.5% Dianeal , Sylvain Peralta Anemia- Hgb stable, BASSAM per protocol Hypertension - backing off meds. I have recommended the very least minimizing carvedilol. SSS s/p pacemaker High Cholesterol - cont statin SSS s/p pacemaker - will consult cardiology to determine he is appropriately paced given his syncopal episode FEN - Cardiac diet PPX - heparin CODE - Full Dispo - Observation History of Present Illness History of Present Illness Mr Steinberg is a 75 year old male with PMHx Anemia, Arrhythmia, High Cholesterol, Hypertension, Renal Disease on PD QID, SSS s/p pacemaker, wet macular degeneration present to ED from [employer] while shopping after a syncopal episode, witnessed. CT head and CXR negative. EKG does show a normal sinus rhythm with a rate of 60, no obvious ST elevation Has been on PD over a year and half. He states that he feels fatigued but otherwise normal. He denies any chest pain, headache, weakness, numbness, shortness of breath. Upon patient's arrival she states that they were shopping when he suddenly got this blank look over his face and then passed out. She does not believe he hit his head. She states is unusual for him not to remember what they were doing. He does have some mild dementia. Per ED pacemaker interrogation with no abnormalities. His does note almost 2-1/2 weeks ago she restarted his home carvedilol 12.5 mg twice daily and lisinopril 10 mg daily. Given slowly weaned off of this over the past year and a half due to issues with orthostasis. Vitals/I&O Vitals/I&O: Vital Signs Date Time Temp Pulse Resp B/P (MAP) Pulse Ox O2 Delivery O2 Flow Rate FiO2 03/14/21 11:00 97.6 61 20 122/53 (76) 95 Room Air 97.6 I & O 03/13/21 03/13/21 03/14/21 15:00 23:00 07:00 Intake Total 150 ml Output Total 100 ml 200 ml Balance -100 ml -50 ml Physical Exam General: Alert, Cooperative, No acute distress, Other (oriented 2/3) Lungs: Clear Abdomen: Normal bowel sounds, Soft Extremities: No edema, Normal pulses Labs Labs: Laboratory Tests Test 03/13/21 13:20 White Blood Count 7.4 x10^3/uL (4.0-11.0) Red Blood Count 3.08 x10^6/uL (4.30-5.70) Hemoglobin 10.6 g/dL (13.0-17.5) Hematocrit 30.7 % (39.0-53.0) Mean Corpuscular Volume 100 fL (79-100) Mean Corpuscular Hemoglobin 34 pg (25-35) Mean Corpuscular Hemoglobin Concent 34 g/dL (31-37) Red Cell Distribution Width 13.7 % (11.5-14.5) Platelet Count 271 x10^3/uL (140-400) Neutrophils (%) (Auto) 81 % (31-73) Lymphocytes (%) (Auto) 4 % (24-48) Monocytes (%) (Auto) 11 % (0-9) Eosinophils (%) (Auto) 4 % (0-3) Basophils (%) (Auto) 0 % (0-3) Neutrophils # (Auto) 5.9 x10^3/uL (1.8-7.7) Lymphocytes # (Auto) 0.3 x10^3/uL (1.0-4.8) Monocytes # (Auto) 0.8 x10^3/uL (0.0-1.1) Eosinophils # (Auto) 0.3 x10^3/uL (0.0-0.7) Basophils # (Auto) 0.0 x10^3/uL (0.0-0.2) Segmented Neutrophils % 86 % (35-66) Lymphocytes % 4 % (24-48) Monocytes % 7 % (0-10) Eosinophils % 2 % (0-5) Basophils % 1 % (0-3) Platelet Estimate Adequate (ADEQUATE) Sodium Level 135 mmol/L (136-145) Potassium Level 4.1 mmol/L (3.5-5.1) Chloride Level 103 mmol/L (98-107) Carbon Dioxide Level 30 mmol/L (21-32) Anion Gap 2 (6-14) Blood Urea Nitrogen 57 mg/dL (8-26) Creatinine 4.0 mg/dL (0.7-1.3) Estimated GFR (Cockcroft-Gault) 14.7 BUN/Creatinine Ratio 14 (6-20) Glucose Level 137 mg/dL (70-99) Calcium Level 8.1 mg/dL (8.5-10.1) Magnesium Level 1.6 mg/dL (1.8-2.4) Total Bilirubin 0.4 mg/dL (0.2-1.0) Aspartate Amino Transf (AST/SGOT) 36 U/L (15-37) Alanine Aminotransferase (ALT/SGPT) 41 U/L (16-63) Alkaline Phosphatase 130 U/L (46-116) Troponin I Quantitative < 0.017 ng/mL (0.000-0.055) JV-Nbf-M-Type Natriuretic Peptide 798 pg/mL (0-449) Total Protein 5.2 g/dL (6.4-8.2) Albumin 2.0 g/dL (3.4-5.0) Albumin/Globulin Ratio 0.6 (1.0-1.7) Assessment and Plan Assessmemt and Plan Problems Medical Problems: (1) Syncope and collapse Status: Acute Comment Review of Relevant I have reviewed the following items nancy (where applicable) has been applied. Medications: Current Medications Medications (Trade) Dose Ordered Sig/Lm Route PRN Reason Start Time Stop Time Status Last Admin Dose Admin Atorvastatin Calcium (Lipitor) 40 mg QHS PO 03/13/21 23:00 03/13/21 22:45 Carvedilol (Coreg) 12.5 mg BIDWMEALS PO 03/14/21 08:00 03/14/21 10:11 Levothyroxine Sodium (Synthroid) 75 mcg DAILY06 PO 03/14/21 06:00 03/14/21 06:29 Lisinopril (Prinivil) 10 mg DAILY PO 03/14/21 09:00 03/14/21 10:11 Magnesium Oxide (Magnesium Oxide) 400 mg DAILY PO 03/14/21 09:00 03/14/21 10:11 Pantoprazole Sodium (Protonix) 40 mg DAILYAC PO 03/14/21 07:30 03/14/21 06:28 Magnesium Sulfate 50 ml @ 25 mls/hr 1X ONCE IV 03/13/21 23:00 03/14/21 00:59 DC 03/13/21 22:46 Heparin Sodium (Porcine) (Heparin Sodium) 5,000 unit Q8HRS SQ 03/13/21 23:00 03/14/21 06:29 Justifications for Admission Other Justification DAVE MCKENZIE MD Mar 14, 2021 12:01
--- NOTE | 2021-03-14 13:05 | NUR ---
SS following for discharge planning. SS reviewed pt chart and discussed with pt RN. Pt is from home with spouse and is currently on room air. Nephrology and Cardiology consulted. Pt on Peritoneal dialysis at home. Discharge plan is currently to home when medically ready for discharge. SS will continue to follow for discharge planning.
--- NOTE | 2021-03-14 13:15 | PDOC2 ---
CONSULT Date of Consult Date of Consult DATE: 03/14/21 TIME: 13:15 Reason for Consult Reason for Consult: Syncope Referring Physician Referring Physician: Dr. Zuleta Identification/Chief Complaint Chief Complaint Syncope Source Source: Chart review, Patient History of Present Illness Reason for Visit: 75 y/o male with past history of SSS s/p PPM implantation and end stage renal disease on HD apparently was at [facility] when he felt lightheaded and had an episode of syncope. His helped him from falling down and stated he had loss of consciousness. He has had similar episodes in the past when pacemaker interrogations were normal. He denied any chest pain, orthopnea/PND or palpitations. Past Medical History Past Medical History SSS s/p PPM Cardiovascular: HTN, Hyperlipidemia Heme/Onc: Anemia NOS, Other Renal/: Chronic renal insuff, Benign prostatic enlarg., Other Past Surgical History Past Surgical History: Pacemaker, Cataract Removal, Hernia Repair, Tonsillectomy, Other Family History Family History: Heart Disease Social History No ALCOHOL: occassional Drugs: None Lives: with Family Current Problem List Problem List Problems Medical Problems: (1) Syncope and collapse Status: Acute Current Medications Current Medications Current Medications Atorvastatin Calcium (Lipitor) 40 mg QHS PO Last administered on 03/13/21at 22:45; Start 03/13/21 at 23:00 Carvedilol (Coreg) 12.5 mg BIDWMEALS PO Last administered on 03/14/21at 10:11; Start 03/14/21 at 08:00; Stop 03/14/21 at 12:00; Status DC Levothyroxine Sodium (Synthroid) 75 mcg DAILY06 PO Last administered on 03/14/21at 06:29; Start 03/14/21 at 06:00 Lisinopril (Prinivil) 10 mg DAILY PO Last administered on 03/14/21at 10:11; Start 03/14/21 at 09:00 Magnesium Oxide (Magnesium Oxide) 400 mg DAILY PO Last administered on 03/14/21at 10:11; Start 03/14/21 at 09:00 Pantoprazole Sodium (Protonix) 40 mg DAILYAC PO Last administered on 03/14/21at 06:28; Start 03/14/21 at 07:30 Magnesium Sulfate 50 ml @ 25 mls/hr 1X ONCE IV Last administered on 03/13/21at 22:46; Start 03/13/21 at 23:00; Stop 03/14/21 at 00:59; Status DC Enoxaparin Sodium (Lovenox Per Pharmacy Prophylaxis Dosing) 1 each PRN DAILY PRN MC SEE COMMENTS; Start 03/13/21 at 22:15; Stop 03/14/21 at 12:40; Status DC Heparin Sodium (Porcine) (Heparin Sodium) 5,000 unit Q8HRS SQ Last administered on 03/14/21at 06:29; Start 03/13/21 at 23:00 Active Scripts Active Reported Euthyrox (Levothyroxine Sodium) 75 Mcg Tablet 1 Tab PO DAILY Pantoprazole Sodium (Pantoprazole Sodium) 40 Mg Tablet.dr 40 Mg PO DAILYAC Magnesium Oxide 400 Mg Tablet 1 Tab PO DAILY Namenda (Memantine Hcl) 10 Mg Tablet 0.5 Tab PO BID Renal-Kwesi Tablet (Folic Acid/Vit Bcomp,C) 0.8 Mg Tablet 1 Tab PO DAILY 30 Days Fish Oil Conc 1,000 mg Softgel ([place]-3/Dha/Epa/Fish Oil) 1,000 Mg Capsule 1,000 Mg PO DAILY Atorvastatin Calcium 40 Mg Tablet 40 Mg PO QHS Allergies Allergies: Coded Allergies: Influenza Virus Vaccines (Verified Allergy, Intermediate, GUILLAIN BARRE SYMPTOMS, 08/04/19) diphenhydramine (Verified Adverse Reaction, Mild, CHANGE IN PERSONALITY, 08/04/19) CHANGE IN PERSONALITY ROS PSYCHOLOGICAL ROS: No: Hallucinations Eyes: No Loss of vision HEENT: No: Epistaxis Respiratory: No: Hemoptysis, Orthopnea, Shortness of breath Cardiovascular: No Chest Pain Gastrointestinal: No Vomiting, No Diarrhea Genitourinary: No Hematuria Neurological: No Seizures Skin: No Rash Physical Exam General: Alert, Oriented X3 HEENT: Atraumatic Lungs: Clear to auscultation Heart: Regular rate Abdomen: Soft Neuro: Normal speech Psych/Mental Status: Mood NL Vitals VITALS Vital Signs Date Time Temp Pulse Resp B/P (MAP) Pulse Ox O2 Delivery O2 Flow Rate FiO2 03/14/21 11:00 97.6 61 20 122/53 (76) 95 Room Air 97.6 Labs Labs Laboratory Tests Test 03/13/21 13:20 White Blood Count 7.4 x10^3/uL (4.0-11.0) Red Blood Count 3.08 x10^6/uL (4.30-5.70) Hemoglobin 10.6 g/dL (13.0-17.5) Hematocrit 30.7 % (39.0-53.0) Mean Corpuscular Volume 100 fL (79-100) Mean Corpuscular Hemoglobin 34 pg (25-35) Mean Corpuscular Hemoglobin Concent 34 g/dL (31-37) Red Cell Distribution Width 13.7 % (11.5-14.5) Platelet Count 271 x10^3/uL (140-400) Neutrophils (%) (Auto) 81 % (31-73) Lymphocytes (%) (Auto) 4 % (24-48) Monocytes (%) (Auto) 11 % (0-9) Eosinophils (%) (Auto) 4 % (0-3) Basophils (%) (Auto) 0 % (0-3) Neutrophils # (Auto) 5.9 x10^3/uL (1.8-7.7) Lymphocytes # (Auto) 0.3 x10^3/uL (1.0-4.8) Monocytes # (Auto) 0.8 x10^3/uL (0.0-1.1) Eosinophils # (Auto) 0.3 x10^3/uL (0.0-0.7) Basophils # (Auto) 0.0 x10^3/uL (0.0-0.2) Segmented Neutrophils % 86 % (35-66) Lymphocytes % 4 % (24-48) Monocytes % 7 % (0-10) Eosinophils % 2 % (0-5) Basophils % 1 % (0-3) Platelet Estimate Adequate (ADEQUATE) Sodium Level 135 mmol/L (136-145) Potassium Level 4.1 mmol/L (3.5-5.1) Chloride Level 103 mmol/L (98-107) Carbon Dioxide Level 30 mmol/L (21-32) Anion Gap 2 (6-14) Blood Urea Nitrogen 57 mg/dL (8-26) Creatinine 4.0 mg/dL (0.7-1.3) Estimated GFR (Cockcroft-Gault) 14.7 BUN/Creatinine Ratio 14 (6-20) Glucose Level 137 mg/dL (70-99) Calcium Level 8.1 mg/dL (8.5-10.1) Magnesium Level 1.6 mg/dL (1.8-2.4) Total Bilirubin 0.4 mg/dL (0.2-1.0) Aspartate Amino Transf (AST/SGOT) 36 U/L (15-37) Alanine Aminotransferase (ALT/SGPT) 41 U/L (16-63) Alkaline Phosphatase 130 U/L (46-116) Troponin I Quantitative < 0.017 ng/mL (0.000-0.055) UN-Vpj-P-Type Natriuretic Peptide 798 pg/mL (0-449) Total Protein 5.2 g/dL (6.4-8.2) Albumin 2.0 g/dL (3.4-5.0) Albumin/Globulin Ratio 0.6 (1.0-1.7) Laboratory Tests Test 03/13/21 13:20 White Blood Count 7.4 x10^3/uL (4.0-11.0) Red Blood Count 3.08 x10^6/uL (4.30-5.70) Hemoglobin 10.6 g/dL (13.0-17.5) Hematocrit 30.7 % (39.0-53.0) Mean Corpuscular Volume 100 fL (79-100) Mean Corpuscular Hemoglobin 34 pg (25-35) Mean Corpuscular Hemoglobin Concent 34 g/dL (31-37) Red Cell Distribution Width 13.7 % (11.5-14.5) Platelet Count 271 x10^3/uL (140-400) Neutrophils (%) (Auto) 81 % (31-73) Lymphocytes (%) (Auto) 4 % (24-48) Monocytes (%) (Auto) 11 % (0-9) Eosinophils (%) (Auto) 4 % (0-3) Basophils (%) (Auto) 0 % (0-3) Neutrophils # (Auto) 5.9 x10^3/uL (1.8-7.7) Lymphocytes # (Auto) 0.3 x10^3/uL (1.0-4.8) Monocytes # (Auto) 0.8 x10^3/uL (0.0-1.1) Eosinophils # (Auto) 0.3 x10^3/uL (0.0-0.7) Basophils # (Auto) 0.0 x10^3/uL (0.0-0.2) Segmented Neutrophils % 86 % (35-66) Lymphocytes % 4 % (24-48) Monocytes % 7 % (0-10) Eosinophils % 2 % (0-5) Basophils % 1 % (0-3) Platelet Estimate Adequate (ADEQUATE) Sodium Level 135 mmol/L (136-145) Potassium Level 4.1 mmol/L (3.5-5.1) Chloride Level 103 mmol/L (98-107) Carbon Dioxide Level 30 mmol/L (21-32) Anion Gap 2 (6-14) Blood Urea Nitrogen 57 mg/dL (8-26) Creatinine 4.0 mg/dL (0.7-1.3) Estimated GFR (Cockcroft-Gault) 14.7 BUN/Creatinine Ratio 14 (6-20) Glucose Level 137 mg/dL (70-99) Calcium Level 8.1 mg/dL (8.5-10.1) Magnesium Level 1.6 mg/dL (1.8-2.4) Total Bilirubin 0.4 mg/dL (0.2-1.0) Aspartate Amino Transf (AST/SGOT) 36 U/L (15-37) Alanine Aminotransferase (ALT/SGPT) 41 U/L (16-63) Alkaline Phosphatase 130 U/L (46-116) Troponin I Quantitative < 0.017 ng/mL (0.000-0.055) MD-Bih-T-Type Natriuretic Peptide 798 pg/mL (0-449) Total Protein 5.2 g/dL (6.4-8.2) Albumin 2.0 g/dL (3.4-5.0) Albumin/Globulin Ratio 0.6 (1.0-1.7) Assessment/Plan Assessment/Plan 1. Syncope: vasovagal with prominent vasodepressor response vs hypovolemia. Patient felt better after IVF. Tele showed atrial paced rhythm and pacemaker interrogation normal with adequate battery life. No significant arrhythmias were recorded. Recent 2D echo showed EF 45-50% and lexiscan nuclear stress test did not show any ischemia. 2. SSS s/p PPM implantation 3. HTN: controlled 4. HLP: statins 5. ESRD: on peritoneal dialysis Thank you for your consultation LINA FRITZ MD Mar 14, 2021 13:15
[2021-03-14 15:00] VITALS: BP 103/63
--- NOTE | 2021-03-14 16:33 | SNU/HH DC ---
DISCHARGE WITH HOME HEALTH DISCHARGE INFORMATION: Discharge Date: Mar 14, 2021 Final Diagnosis: Problems Medical Problems: (1) Syncope and collapse Status: Acute Condition on Discharge: Stable HOME HEALTH: Face to Face: I certify this patient is under my care and that I, or a nurse practitioner or physician's judicial administrative assistant working with me, had a face to face encounter that meets the physician face to face encounter requirements with this patient on 03/14/2021. Medical Complications: Falls, HTN Jail For: Assess Cardiopulm Status, Assess/Skilled Observatio, Medication Management RN For Eval/Treatment: Yes Physical Therapy For: Evalulation/Treatment Occupational Therapy For: Evaluation/Treatment Pt Meets Homebound Status: Fatigue w/ amb., Limited distance walking POST DISCHARGE ORDERS: Activity Instructions for Disc: No restrictions Weight Bearing Status after Di: No restrictions DIET AFTER DISCHARGE: Renal Wound/Incision Care: Other, see below CHECKS AFTER DISCHARGE: Checks after discharge: Check blood press - daily FOLLOW-UP: PCP to follow Home Health: Dr. Padilla Follow up with: Dr Riddle - nephrology - PD nightly Follow Up With: Dr. Aguirre - cardiology Additional Instructions: Monitor blood pressure at home if blood pressure reading is over 150/90 on 2 or more readings you can restart home carvedilol 3.125 mg twice daily. [facility] Doctors: Trevor [id number], [address] [place] [address] Call to follow up with cardiology [id number] [facility] [place] [address] CERTIFICATION STATEMENT: Certification Statement: Certification Statement: Based on the above finding, I certify that this patient is confined to the home and needs intermittent prison care, physical therapy and/or speech therapy, or continues to need occupational therapy.~ This patient is under my care, and I have initiated the establishment of the plan of care.~ This patient will be followed by myself or a community physician who will periodically review the plan of care. Home Meds Reported Medications Levothyroxine Sodium (Euthyrox) 75 Mcg Tablet, 1 TAB PO DAILY for 03/13/21 Pantoprazole Sodium (PANTOPRAZOLE SODIUM ) 40 Mg Tablet.dr 40 MG PO DAILYAC for GERD, TAB 03/13/21 Magnesium Oxide (MAGNESIUM OXIDE) 400 Mg Tablet, 1 TAB PO DAILY for , #90 TAB 3 Refills 03/13/21 Memantine Hcl (NAMENDA) 10 Mg Tablet, 0.5 TAB PO BID for alzheimers, #180 TAB 1 Refill 11/15/20 Folic Acid/Vit Bcomp,C (Renal-Kwesi Tablet) 0.8 Mg Tablet, 1 TAB PO DAILY for supp for 30 Days, #30 TAB 0 Refills 10/05/19 [place]-3/Dha/Epa/Fish Oil (Fish Oil Conc 1,000 mg Softgel) 1,000 Mg Capsule, 1000 MG PO DAILY 06/20/16 Atorvastatin Calcium (ATORVASTATIN CALCIUM) 40 Mg Tablet, 40 MG PO QHS for FOR CHOLESTEROL, #30 TAB 0 Refills 06/20/16 Discontinued Reported Medications Lisinopril (LISINOPRIL) 10 Mg Tablet, 10 MG PO DAILY for FOR HYPERTENSION, #30 TAB 0 Refills 03/13/21 Carvedilol (CARVEDILOL ) 12.5 Mg Tablet, 12.5 MG PO BIDWMEALS for CARDIAC, TAB 03/13/21 Lisinopril (LISINOPRIL) 20 Mg Tablet, 1 TAB PO BID for htn, #30 TAB 5 Refills 11/15/20 Carvedilol (CARVEDILOL) 25 Mg Tablet, 25 MG PO BIDWMEALS for CARDIAC, TAB 11/15/20 Pantoprazole Sodium (PROTONIX) 20 Mg Tablet.dr, 20 MG PO HS for GERD, TAB 12/27/18 DAVE MCKENZIE MD Mar 14, 2021 16:33
--- NOTE | 2021-03-14 16:39 | PDOC3 ---
Discharge Summary Visit Information Date of Admission: Mar 13, 2021 Date of Discharge: Mar 14, 2021 Admitting Diagnosis: Syncope and collapse Final Diagnosis Problems Medical Problems: (1) Syncope and collapse Status: Acute Brief Hospital Course Allergies Allergies Coded Allergies Type Severity Reaction Last Updated Verified Influenza Virus Vaccines Allergy Intermediate GUILLAIN BARRE SYMPTOMS 08/04/19 Yes diphenhydramine Adverse Reaction Mild CHANGE IN PERSONALITY 08/04/19 Yes Vital Signs Vital Signs Date Time Temp Pulse Resp B/P (MAP) Pulse Ox O2 Delivery O2 Flow Rate FiO2 03/14/21 15:00 98.8 60 20 103/63 (76) 96 Room Air 98.8 Lab Results Laboratory Tests Test 03/13/21 13:20 White Blood Count 7.4 x10^3/uL (4.0-11.0) Red Blood Count 3.08 x10^6/uL (4.30-5.70) Hemoglobin 10.6 g/dL (13.0-17.5) Hematocrit 30.7 % (39.0-53.0) Mean Corpuscular Volume 100 fL (79-100) Mean Corpuscular Hemoglobin 34 pg (25-35) Mean Corpuscular Hemoglobin Concent 34 g/dL (31-37) Red Cell Distribution Width 13.7 % (11.5-14.5) Platelet Count 271 x10^3/uL (140-400) Neutrophils (%) (Auto) 81 % (31-73) Lymphocytes (%) (Auto) 4 % (24-48) Monocytes (%) (Auto) 11 % (0-9) Eosinophils (%) (Auto) 4 % (0-3) Basophils (%) (Auto) 0 % (0-3) Neutrophils # (Auto) 5.9 x10^3/uL (1.8-7.7) Lymphocytes # (Auto) 0.3 x10^3/uL (1.0-4.8) Monocytes # (Auto) 0.8 x10^3/uL (0.0-1.1) Eosinophils # (Auto) 0.3 x10^3/uL (0.0-0.7) Basophils # (Auto) 0.0 x10^3/uL (0.0-0.2) Segmented Neutrophils % 86 % (35-66) Lymphocytes % 4 % (24-48) Monocytes % 7 % (0-10) Eosinophils % 2 % (0-5) Basophils % 1 % (0-3) Platelet Estimate Adequate (ADEQUATE) Sodium Level 135 mmol/L (136-145) Potassium Level 4.1 mmol/L (3.5-5.1) Chloride Level 103 mmol/L (98-107) Carbon Dioxide Level 30 mmol/L (21-32) Anion Gap 2 (6-14) Blood Urea Nitrogen 57 mg/dL (8-26) Creatinine 4.0 mg/dL (0.7-1.3) Estimated GFR (Cockcroft-Gault) 14.7 BUN/Creatinine Ratio 14 (6-20) Glucose Level 137 mg/dL (70-99) Calcium Level 8.1 mg/dL (8.5-10.1) Magnesium Level 1.6 mg/dL (1.8-2.4) Total Bilirubin 0.4 mg/dL (0.2-1.0) Aspartate Amino Transf (AST/SGOT) 36 U/L (15-37) Alanine Aminotransferase (ALT/SGPT) 41 U/L (16-63) Alkaline Phosphatase 130 U/L (46-116) Troponin I Quantitative < 0.017 ng/mL (0.000-0.055) CF-Tox-C-Type Natriuretic Peptide 798 pg/mL (0-449) Total Protein 5.2 g/dL (6.4-8.2) Albumin 2.0 g/dL (3.4-5.0) Albumin/Globulin Ratio 0.6 (1.0-1.7) Brief Hospital Course Mr Steinberg is a 75 year old male with PMHx Anemia, Arrhythmia, High Cholesterol, Hypertension, Renal Disease on PD QID, SSS s/p pacemaker, wet macular degeneration present to ED from [employer] while shopping after a syncopal episode, witnessed. CT head and CXR negative. EKG does show a normal sinus rhythm with a rate of 60, no obvious ST elevation Has been on PD over a year and half. He states that he feels fatigued but otherwise normal. He denies any chest pain, headache, weakness, numbness, shortness of breath. Upon patient's arrival she states that they were shopping when he suddenly got this blank look over his face and then passed out. She does not believe he hit his head. She states is unusual for him not to remember what they were doing. He does have some mild dementia. Per ED pacemaker interrogation with no abnormalities. His does note almost 2-1/2 weeks ago she restarted his home carvedilol 12.5 mg twice daily and lisinopril 10 mg daily. Given slowly weaned off of this over the past year and a half due to issues with orthostasis. Echocardiogram 03/09/2021 with normal systolic function EF 55-60 no wall motion abnormalities no valvular abnormalities. Mild mitral and tricuspid regurgitation with pulmonary arterial pressure estimated at 20 mmHg. Fluid challenge and holding BP meds helped. Advised to monitor blood pressure at home if blood pressure reading is over 150/90 on 2 or more readings you can restart home carvedilol 3.125 mg twice daily. If BP still elevated, contact nephrology to reinitiate lisinopril Consults: Nephrology and cardiology Problem list: Syncope - likely vasovagal given he was taking home BP meds after having them d iscontinued in addition to PD and responded well to minimal fluid challenge. monitored on tele and consulted cardiology to r/o cardiac etiology ESRD- On PD Continue APD while inpatient -using 1.5% Dianeal , Sylvain Peralta Anemia- Hgb stable, BASSAM per protocol Hypertension - backing off meds. I have recommended the very least minimizing carvedilol. SSS s/p pacemaker High Cholesterol - cont statin SSS s/p pacemaker - consulted cardiology to determine he is appropriately paced given his syncopal episode Greater than 30 minutes spent on discharge home with home health Discharge Information Condition at Discharge: Improved Follow Up: Weeks (1) Disposition/Orders: D/C to Home w/ HH Scheduled Atorvastatin Calcium (Atorvastatin Calcium) 40 Mg Tablet, 40 MG PO QHS for FOR CHOLESTEROL, #30 Ref 0 (Reported) Entered as Reported by: PAXTON LIZARRAGA on 06/20/16923 Last Action: Continued on 03/13/212211 by CHARLENE COLEMAN Folic Acid/Vit Bcomp,C (Renal-Kwesi Tablet) 0.8 Mg Tablet, 1 TAB PO DAILY for supp for 30 Days, #30 Ref 0 (Reported) Entered as Reported by: LEVY FOWLER on 10/05/19 1605 Last Action: Reviewed on 03/13/212114 by ROBERT STRATTON, JYOTI Levothyroxine Sodium (Euthyrox) 75 Mcg Tablet, 1 TAB PO DAILY for , (Reported) Entered as Reported by: ROBERT STRATTON RN on 03/13/212115 Last Action: Continued on 03/13/212211 by CHARLENE COLEMAN Magnesium Oxide (Magnesium Oxide) 400 Mg Tablet, 1 TAB PO DAILY for , #90 Ref 3 (Reported) Entered as Reported by: ROBERT STRATTON RN on 03/13/212114 Last Action: Continued on 03/13/212211 by CHARLENE COLEMAN Memantine Hcl (Namenda) 10 Mg Tablet, 0.5 TAB PO BID for alzheimers, #180 Ref 1 (Reported) Entered as Reported by: PEPE ALMAGUER on 11/15/20852 Last Action: Reviewed on 03/13/212114 by ROBERT STRATTON RN Hinkley-3/Dha/Epa/Fish Oil (Fish Oil Conc 1,000 mg Softgel) 1,000 Mg Capsule, 1,000 MG PO DAILY, (Reported) Entered as Reported by: PAXTON LIZARRAGA on 06/20/16923 Last Action: Reviewed on 03/13/212114 by ROBERT STRATTON RN Pantoprazole Sodium (Pantoprazole Sodium ) 40 Mg Tablet.dr, 40 MG PO DAILYAC for GERD, (Reported) Entered as Reported by: ROBERT STRATTON RN on 03/13/212115 Last Action: Continued on 03/13/212211 by CHARLENE COLEMAN Discontinued Medications Carvedilol (Carvedilol) 25 Mg Tablet, 25 MG PO BIDWMEALS for CARDIAC, (Reported) Discontinued Reason: Prescription changed Entered as Reported by: PEPE ALMAGUER on 11/15/20852 Carvedilol (Carvedilol ) 12.5 Mg Tablet, 12.5 MG PO BIDWMEALS for CARDIAC, (Reported) Entered as Reported by: ROBERT STRATTON RN on 03/13/212114 Last Action: Continued on 03/13/212211 by CHARLENE COLEMAN Lisinopril (Lisinopril) 20 Mg Tablet, 1 TAB PO BID for htn, #30 Ref 5 (Reported) Discontinued Reason: Prescription changed Entered as Reported by: PEPE ALMAGUER on 11/15/20852 Lisinopril (Lisinopril) 10 Mg Tablet, 10 MG PO DAILY for FOR HYPERTENSION, #30 Ref 0 (Reported) Entered as Reported by: ROBERT STRATTON RN on 03/13/212114 Last Action: Continued on 03/13/212211 by CHARLENE COLEMAN Pantoprazole Sodium (Protonix) 20 Mg Tablet., 20 MG PO HS for GERD, (Reported) Discontinued Reason: Prescription changed Entered as Reported by: LEVY MOMIN on 12/27/18 1452 Last Action: Edited on 03/13/212114 by ROBERT STRATTON RN Justicifation of Admission Dx: Justifications for Admission: Justification of Admission Dx: Yes CHF: Hemodynamic Instability DAVE MCKENZIE MD Mar 14, 2021 16:39
--- NOTE | 2021-03-14 19:16 | NUR ---
Discharge Note: CAITLIN SAUL6 [facility] Discharge instructions and discharge home medications reviewed with Patient and a copy given. All questions have been answered and understanding verbalized. Education given to . Pt in stable condition at time of DC.
== END 2021-03-14 19:18 | disposition home or self-care (01) ==
LOC: ER 12:25 → ED HOLD 17:33 → 6 SOUTH 19:28
PROVIDERS: ADMIT Internal Medicine; ATTEND Internal Medicine
DX: R55 Syncope and collapse (principal); F03.90 Unspecified dementia, unspecified severity, without behavioral disturbance, psychotic disturbance, mood disturbance, and anxiety; E78.00 Pure hypercholesterolemia, unspecified; E03.9 Hypothyroidism, unspecified; E43 Unspecified severe protein-calorie malnutrition; E78.5 Hyperlipidemia, unspecified; E83.42 Hypomagnesemia; I12.0 Hypertensive chronic kidney disease with stage 5 chronic kidney disease or end stage renal disease; N18.6 End stage renal disease; Z95.0 Presence of cardiac pacemaker; Z98.890 Other specified postprocedural states
CPT/HCPCS: 36415; 70450; 71045; 80053; 83735; 83880; 84484; 85007; 85025; 93005; 96365; 96366; 99284; G0378; J1644; J3475; 99285; G0379